=== PATIENT | male | born 1975 | race Hispanic/Latino ===

== ENCOUNTER → 2019-09-11 | Outpatient (CLI) | payer OTHER | END | disposition home or self-care (01) | LOC: RAH 10:26 | PROVIDERS: ATTEND Nurse Practitioner Family | DX: Z13.6 Encounter for screening for cardiovascular disorders (principal) | CPT/HCPCS: 75571 ==

== ENCOUNTER 2020-10-14 18:04 | Inpatient (IN) | payer BC, OTHER ==
[~2020-10-14] VITALS: Ht 190.5 cm; Wt 82.5 kg
[2020-10-14] MEDS ORDERED: CEFTRIAXONE 1G VIAL ONE (18:16)
[2020-10-14 18:31] LABS: BASOPHILS % (AUTO) 0.2 % (0.0-5.0); HEMATOCRIT 48.5 % (42-54); LYMPHOCYTES % (AUTO) 7.4 % (21.0-51.0); MEAN CORPUSCULAR HEMOGLOBIN 28.2 pg (27.0-33.0); MEAN CORPUSCULAR HGB CONC 32.2 g/dL (32.0-36.0); MEAN CORPUSCULAR VOLUME 87.5 fL (79-99); MONOCYTES % (AUTO) 4.7 % (3.0-13.0); NEUTROPHILS % (AUTO) 87.2 % (40.0-77.0); PLATELET COUNT (AUTO) 316 K/uL (130-400); RED BLOOD CELL COUNT(AUTO) 5.54 MIL/uL (4.50-6.20); RED CELL DISTRIBUTION WIDTH 12.4 % (11.0-15.5); WHITE BLOOD COUNT (AUTO) 10.5 K/uL (4.8-10.8)
[2020-10-14 18:44] LABS: INR 1.02 (0.85-1.15); PROTHROMBIN TIME 10.9 SEC (9.6-11.6)
[2020-10-14 18:45] LABS: PARTIAL THROMBOPLASTIN TIME 32.6 SEC (26.3-35.5)
[2020-10-14 19:01] LABS: ALANINE AMINOTRANSFERASE 36 U/L (12-78); ALBUMIN 3.1 g/dL (3.5-5.0); ASPARTATE AMINOTRANSFERASE 52 U/L (10-37); BILIRUBIN,TOTAL 0.3 mg/dL (0.2-1.0); CARBON DIOXIDE 21 mmol/L (21-32); CHLORIDE 101 mmol/L (101-111); CREATINE KINASE, TOTAL 112 U/L (21-232); CREATININE 1.2 mg/dL (0.5-1.5); GLOMERULAR FILTR. RATE CALC 69 mL/min (>60); GLUCOSE,RANDOM 242 mg/dL (70-105); MYOGLOBIN 97 ng/mL (10-92); POTASSIUM 4.8 mmol/L (3.5-5.1); SODIUM SERUM 136 mmol/L (136-145); TOTAL PROTEIN, SERUM 7.7 g/dL (6.0-8.3); TROPONIN I < 0.04 ng/mL (0.00-0.06); UREA NITROGEN, BLOOD 26 mg/dL (7-18)
[2020-10-14] MEDS ORDERED: 0.9%NACL 1000ML 1,000 ML IV ONE (19:41)
[2020-10-14] MEDS ORDERED: DEXAMETHASONE SOD PHOSPHATE 10MG/ML 1ML VIAL ONE (20:03)
[2020-10-14 20:48] LABS: ABG BASE EXCESS -2.5 mmol/L (-2.0-3.0); ABG HCO3 20.8 mmol/L (21.0-28.0); ABG OXYGEN SATURATION 82.3 % (95.0-99.0); ABG PCO2 33 mmHg (35-48)
[2020-10-14 21:59] LABS: BILIRUBIN,URINE Negative (NEGATIVE); COLOR,URINE Yellow (YELLOW); GLUCOSE, URINE (UA) >=1000 mg/dL (NEGATIVE); KETONES,URINE 15 mg/dL (NEGATIVE); LEUKOCYTE ESTERASE ,URINE Negative (NEGATIVE); NITRATE,URINE Negative (NEGATIVE); OCCULT BLOOD,URINE Negative (NEGATIVE); PROTEIN,URINE Negative (NEGATIVE); UROBILINOGEN,URINE 0.2 mg/dL (0.2-1.0)
[2020-10-14 22:02] LABS: APPEARANCE,URINE CLEAR (CLEAR)
[2020-10-14 22:07] LABS: RBC,URINE 0-1 /HPF (0-1); WBC,URINE 0-1 /HPF (0-1)
[2020-10-14 22:08] LABS: BACTERIA,URINE Rare /HPF (None Seen); SQUAMOUS EPITHELIAL CELL,UR Rare /HPF (0-2)
[2020-10-14] MEDS ORDERED: PHARMACY COMMUNICATION MISC SCH (22:45)
[2020-10-14 23:17] LABS: HEMOGLOBIN A1C 9.5 % (4.0-6.0)
[2020-10-15] VITALS (9 sets, daily range): BP systolic 103–179; BP diastolic 53–96
[2020-10-15] MEDS ORDERED: LOSA25TA2 PO (02:08)
[2020-10-15] MEDS ORDERED: METF1000 PO (02:09)
[2020-10-15] MEDS ORDERED: ASPI-1197 PO (02:10)
[2020-10-15] MEDS ORDERED: OMEP40CA21 PO (02:11)
[2020-10-15] MEDS ORDERED: DEXA6TAB PO (02:12)
[2020-10-15] MEDS ORDERED: BENZ-17 PO (02:13)
[2020-10-15 04:01] LABS: BASOPHILS % (AUTO) 0.1 % (0.0-5.0); HEMATOCRIT 43.4 % (42-54); LYMPHOCYTES % (AUTO) 8.6 % (21.0-51.0); MEAN CORPUSCULAR HEMOGLOBIN 27.7 pg (27.0-33.0); MEAN CORPUSCULAR HGB CONC 31.3 g/dL (32.0-36.0); MEAN CORPUSCULAR VOLUME 88.4 fL (79-99); MONOCYTES % (AUTO) 3.4 % (3.0-13.0); NEUTROPHILS % (AUTO) 87.5 % (40.0-77.0); PLATELET COUNT (AUTO) 322 K/uL (130-400); RED BLOOD CELL COUNT(AUTO) 4.91 MIL/uL (4.50-6.20); RED CELL DISTRIBUTION WIDTH 12.5 % (11.0-15.5); WHITE BLOOD COUNT (AUTO) 7.3 K/uL (4.8-10.8)
[2020-10-15 04:26] LABS: ALBUMIN 2.6 g/dL (3.5-5.0); BILIRUBIN,TOTAL 0.3 mg/dL (0.2-1.0); CREATININE 1.2 mg/dL (0.5-1.5); CRP QUANTITATIVE 162.7 mg/L (0.00-9.0); POTASSIUM 4.8 mmol/L (3.5-5.1); TOTAL PROTEIN, SERUM 7.5 g/dL (6.0-8.3)
[2020-10-15] MEDS ORDERED: ONDANSETRON 4MG INJ IV PRN (06:37)
[2020-10-15] MEDS ORDERED: LACTULOSE 20 GM/30 ML UDCUP PO PRN (06:38)
[2020-10-15] MEDS: LINEZOLID 600 MG/ISO-OSM 300 ML IV SCH ×2 (06:42→17:52)
[2020-10-15] MEDS: INSULIN LISPRO 100 UNIT/ML 3ML SQ SCH ×7 (07:30→20:48)
[2020-10-15] MEDS: ENOXAPARIN SODIUM 40 MG/0.4 ML SYRINGE SQ SCH ×3 (09:00→20:49)
[2020-10-15] MEDS ORDERED: ENOXAPARIN SODIUM 40 MG/0.4 ML SYRINGE SQ SCH (09:00)
[2020-10-15] MEDS: ZOSYN 3.375GM+NS 50ML 50 ML IV SCH ×3 (10:19→20:49)
[2020-10-15] MEDS: ERGOCALCIFEROL (VITAMIN D2) 50,000 UNIT CAPSULE PO SCH (10:21)
[2020-10-15] MEDS: FAMOTIDINE 20MG TAB PO SCH (10:21)
[2020-10-15] MEDS: ZINC SULFATE 220 CAPSULE PO SCH (10:21)
[2020-10-15] MEDS: ASCORBIC ACID 500 MG TAB PO SCH (10:21)
[2020-10-15] MEDS ORDERED: REMDESIVIR (EUA) 520 200 MG in 0.9% NACL 250ML 250 ML IV ONE (15:00)
[2020-10-15] MEDS ORDERED: COMPOUND IV REFRIGERATED 1 EACH IVSOLN MISC PRN (15:00)
[2020-10-15] MEDS ORDERED: 0.9% NACL 250ML 250 ML IV ONE (17:12)
[2020-10-15] MEDS: ACETAMINOPHEN 325 MG TAB PO PRN (20:46)
[2020-10-15] MEDS: INSULIN GLARGINE 100 UNITS/ML 10 ML VIAL SQ SCH (20:47)
[2020-10-15] MEDS: GUAIFENESIN-CODEINE 5 ML SYRUP PO PRN (21:10)
[2020-10-16] VITALS: BP_SYST 135; BP_SYST 139; BP_DIAS 80
[2020-10-16] MEDS: LORAZEPAM 2 MG/ML 1 ML VIAL IVP PRN (01:24)
[2020-10-16 04:00] VITALS: BP 135/80
[2020-10-16] MEDS ORDERED: 0.9% NACL 250ML 250 ML IV ONE (04:08)
[2020-10-16 04:24] LABS: ABG HCO3 21.1 mmol/L (21.0-28.0); ABG OXYGEN SATURATION 90.4 % (95.0-99.0); ABG PCO2 32 mmHg (35-48)
[2020-10-16] MEDS: ZOSYN 3.375GM+NS 50ML 50 ML IV SCH ×3 (04:54→19:49)
[2020-10-16 05:47] LABS: BASOPHILS % (AUTO) 0.2 % (0.0-5.0); HEMATOCRIT 43.1 % (42-54); LYMPHOCYTES % (AUTO) 11.1 % (21.0-51.0); MEAN CORPUSCULAR HEMOGLOBIN 28.2 pg (27.0-33.0); MEAN CORPUSCULAR VOLUME 88.1 fL (79-99); MONOCYTES % (AUTO) 2.6 % (3.0-13.0); NEUTROPHILS % (AUTO) 85.2 % (40.0-77.0); PLATELET COUNT (AUTO) 327 K/uL (130-400); RED BLOOD CELL COUNT(AUTO) 4.89 MIL/uL (4.50-6.20); RED CELL DISTRIBUTION WIDTH 12.4 % (11.0-15.5); WHITE BLOOD COUNT (AUTO) 10.3 K/uL (4.8-10.8)
[2020-10-16] MEDS: PHARMACY COMMUNICATION MISC SCH (06:00)
[2020-10-16 06:09] LABS: ALBUMIN 2.5 g/dL (3.5-5.0); BILIRUBIN,TOTAL 0.4 mg/dL (0.2-1.0); CREATININE 1.1 mg/dL (0.5-1.5); POTASSIUM 4.3 mmol/L (3.5-5.1); TOTAL PROTEIN, SERUM 7.3 g/dL (6.0-8.3)
[2020-10-16] MEDS: ACETAMINOPHEN 325 MG TAB PO PRN ×2 (06:14→20:12)
[2020-10-16 06:17] LABS: B-TYPE NATRIURETIC PEPTIDE 7 pg/mL (0-100)
[2020-10-16] MEDS: LINEZOLID 600 MG/ISO-OSM 300 ML IV SCH ×2 (06:17→18:50)
[2020-10-16 06:28] LABS: CRP QUANTITATIVE 176.5 mg/L (0.00-9.0)
[2020-10-16] MEDS: INSULIN LISPRO 100 UNIT/ML 3ML SQ SCH ×7 (07:30→20:15)
[2020-10-16 08:00] VITALS: BP 113/58
[2020-10-16] MEDS: ASCORBIC ACID 500 MG TAB PO SCH (08:33)
[2020-10-16] MEDS: ZINC SULFATE 220 CAPSULE PO SCH (08:33)
[2020-10-16] MEDS: ASPIRIN 81MG CHEW TAB PO SCH (08:33)
[2020-10-16] MEDS: DEXAMETHASONE SOD PHOSPHATE 4 MG/ML 1ML VIAL IVP SCH ×2 (08:33→19:49)
[2020-10-16] MEDS: FAMOTIDINE 20MG TAB PO SCH (08:33)
[2020-10-16] MEDS: LOSARTAN 50 MG TABLET PO SCH (08:34)
[2020-10-16] MEDS: ENOXAPARIN SODIUM 40 MG/0.4 ML SYRINGE SQ SCH ×2 (08:34→19:50)
[2020-10-16] MEDS: ERGOCALCIFEROL (VITAMIN D2) 50,000 UNIT CAPSULE PO SCH (08:42)
[2020-10-16] MEDS ORDERED: NON-FORMULARY MEDICATION 1 EACH (Omeprazole 40 MG) PO SCH (09:00)
[2020-10-16] MEDS ORDERED: FUROSEMIDE 20MG VIAL IV SCH (09:00)
[2020-10-16] MEDS: TRAMADOL HCL 50 MG TABLET PO PRN (11:56)
[2020-10-16 12:00] VITALS: BP 113/77
[2020-10-16] MEDS: REMDESIVIR (EUA) 520 100 MG in 0.9% NACL 250ML 250 ML IV SCH (15:06)
[2020-10-16 16:00] VITALS: BP 123/72
[2020-10-16] MEDS: GUAIFENESIN-CODEINE 5 ML SYRUP PO PRN (20:12)
[2020-10-16] MEDS: INSULIN GLARGINE 100 UNITS/ML 10 ML VIAL SQ SCH (20:14)
[2020-10-16 20:36] VITALS: BP 125/64
[2020-10-17 00:02] VITALS: BP 127/69
[2020-10-17 04:17] VITALS: BP 106/64
[2020-10-17] MEDS: PHARMACY COMMUNICATION MISC SCH (06:00)
[2020-10-17] MEDS: ZOSYN 3.375GM+NS 50ML 50 ML IV SCH ×3 (06:05→21:12)
[2020-10-17] MEDS: LINEZOLID 600 MG/ISO-OSM 300 ML IV SCH (06:07)
[2020-10-17 06:10] LABS: BASOPHILS % (AUTO) 0.2 % (0.0-5.0); HEMATOCRIT 42.7 % (42-54); LYMPHOCYTES % (AUTO) 10.4 % (21.0-51.0); MEAN CORPUSCULAR HEMOGLOBIN 28.6 pg (27.0-33.0); MEAN CORPUSCULAR HGB CONC 31.9 g/dL (32.0-36.0); MEAN CORPUSCULAR VOLUME 89.9 fL (79-99); MONOCYTES % (AUTO) 2.5 % (3.0-13.0); NEUTROPHILS % (AUTO) 86.4 % (40.0-77.0); PLATELET COUNT (AUTO) 331 K/uL (130-400); RED BLOOD CELL COUNT(AUTO) 4.75 MIL/uL (4.50-6.20); RED CELL DISTRIBUTION WIDTH 12.3 % (11.0-15.5); WHITE BLOOD COUNT (AUTO) 6.4 K/uL (4.8-10.8)
[2020-10-17 06:31] LABS: ALBUMIN 2.3 g/dL (3.5-5.0); BILIRUBIN,TOTAL 0.3 mg/dL (0.2-1.0); CREATININE 0.9 mg/dL (0.5-1.5); POTASSIUM 4.9 mmol/L (3.5-5.1); TOTAL PROTEIN, SERUM 7.3 g/dL (6.0-8.3)
[2020-10-17] MEDS: TRAMADOL HCL 50 MG TABLET PO PRN (06:31)
[2020-10-17 06:43] LABS: CRP QUANTITATIVE 194.3 mg/L (0.00-9.0)
[2020-10-17] MEDS: ZINC SULFATE 220 CAPSULE PO SCH (08:11)
[2020-10-17] MEDS: ENOXAPARIN SODIUM 40 MG/0.4 ML SYRINGE SQ SCH ×2 (08:11→21:02)
[2020-10-17] MEDS: ASPIRIN 81MG CHEW TAB PO SCH (08:11)
[2020-10-17] MEDS: ASCORBIC ACID 500 MG TAB PO SCH (08:12)
[2020-10-17] MEDS: DEXAMETHASONE SOD PHOSPHATE 4 MG/ML 1ML VIAL IVP SCH ×2 (08:12→21:12)
[2020-10-17] MEDS: LOSARTAN 50 MG TABLET PO SCH (08:12)
[2020-10-17] MEDS: FAMOTIDINE 20MG TAB PO SCH (08:12)
[2020-10-17] MEDS: INSULIN LISPRO 100 UNIT/ML 3ML SQ SCH ×7 (08:15→20:58)
[2020-10-17] MEDS: ERGOCALCIFEROL (VITAMIN D2) 50,000 UNIT CAPSULE PO SCH (09:00)
[2020-10-17] MEDS: LORAZEPAM 2 MG/ML 1 ML VIAL IVP PRN (11:05)
[2020-10-17 12:00] VITALS: BP 123/74
[2020-10-17] MEDS: REMDESIVIR (EUA) 520 100 MG in 0.9% NACL 250ML 250 ML IV SCH (14:58)
[2020-10-17 16:00] VITALS: BP 121/73
[2020-10-17] MEDS: FUROSEMIDE 20MG VIAL IV SCH (17:20)
[2020-10-17 20:00] VITALS: BP 114/75
[2020-10-17] MEDS: INSULIN GLARGINE 100 UNITS/ML 10 ML VIAL SQ SCH (20:57)
[2020-10-17] MEDS: GUAIFENESIN-CODEINE 5 ML SYRUP PO PRN (21:01)
[2020-10-17] MEDS: ACETAMINOPHEN 325 MG TAB PO PRN (21:04)
[2020-10-17 23:37] VITALS: BP 122/64
[2020-10-18 03:17] VITALS: BP 115/69
[2020-10-18 05:53] LABS: BASOPHILS % (AUTO) 0.1 % (0.0-5.0); HEMATOCRIT 43.6 % (42-54); LYMPHOCYTES % (AUTO) 6.8 % (21.0-51.0); MEAN CORPUSCULAR HEMOGLOBIN 27.5 pg (27.0-33.0); MEAN CORPUSCULAR HGB CONC 31.2 g/dL (32.0-36.0); MEAN CORPUSCULAR VOLUME 88.3 fL (79-99); MONOCYTES % (AUTO) 2.5 % (3.0-13.0); NEUTROPHILS % (AUTO) 90.2 % (40.0-77.0); PLATELET COUNT (AUTO) 403 K/uL (130-400); RED BLOOD CELL COUNT(AUTO) 4.94 MIL/uL (4.50-6.20); RED CELL DISTRIBUTION WIDTH 12.2 % (11.0-15.5); WHITE BLOOD COUNT (AUTO) 8.9 K/uL (4.8-10.8)
[2020-10-18] MEDS: ZOSYN 3.375GM+NS 50ML 50 ML IV SCH ×3 (06:07→21:22)
[2020-10-18] MEDS: FUROSEMIDE 20MG VIAL IV SCH ×2 (06:07→17:26)
[2020-10-18] MEDS: TRAMADOL HCL 50 MG TABLET PO PRN ×2 (06:17→21:36)
[2020-10-18 06:36] LABS: ALBUMIN 2.5 g/dL (3.5-5.0); BILIRUBIN,TOTAL 0.4 mg/dL (0.2-1.0); CREATININE 0.9 mg/dL (0.5-1.5); POTASSIUM 4.7 mmol/L (3.5-5.1); TOTAL PROTEIN, SERUM 6.6 g/dL (6.0-8.3)
[2020-10-18] MEDS: INSULIN LISPRO 100 UNIT/ML 3ML SQ SCH ×7 (07:45→22:10)
[2020-10-18 08:00] VITALS: BP 120/52
[2020-10-18] MEDS: FAMOTIDINE 20MG TAB PO SCH (08:01)
[2020-10-18] MEDS: DEXAMETHASONE SOD PHOSPHATE 4 MG/ML 1ML VIAL IVP SCH ×2 (08:02→21:24)
[2020-10-18] MEDS: ZINC SULFATE 220 CAPSULE PO SCH (08:02)
[2020-10-18] MEDS: ASPIRIN 81MG CHEW TAB PO SCH (08:02)
[2020-10-18] MEDS: ASCORBIC ACID 500 MG TAB PO SCH (08:02)
[2020-10-18] MEDS: ENOXAPARIN SODIUM 40 MG/0.4 ML SYRINGE SQ SCH (09:00)
[2020-10-18] MEDS: ENOXAPARIN SODIUM 60 MG/0.6 ML SQ SCH ×2 (09:27→21:22)
[2020-10-18] MEDS: ERGOCALCIFEROL (VITAMIN D2) 50,000 UNIT CAPSULE PO SCH (09:28)
[2020-10-18 12:00] VITALS: BP 123/79
[2020-10-18] MEDS: BENZOCAINE/MENTH/CETYLPYRD CL 1 EACH LOZENGE MM PRN (12:19)
[2020-10-18] MEDS: REMDESIVIR (EUA) 520 100 MG in 0.9% NACL 250ML 250 ML IV SCH (14:08)
[2020-10-18] MEDS ORDERED: FLUCONAZOLE 100 MG TAB PO ONE (15:00)
[2020-10-18] MEDS: CLOTRIMAZOLE 10 MG TROCHE MM SCH ×2 (15:08→21:23)
[2020-10-18 16:00] VITALS: BP 119/71
[2020-10-18] MEDS: GUAIFENESIN-CODEINE 5 ML SYRUP PO PRN (17:26)
[2020-10-18 20:00] VITALS: BP 140/80
[2020-10-18] MEDS: LORAZEPAM 2 MG/ML 1 ML VIAL IVP PRN (21:23)
[2020-10-18] MEDS: INSULIN GLARGINE 100 UNITS/ML 10 ML VIAL SQ SCH (22:11)
[2020-10-19 00:26] VITALS: BP 128/72
[2020-10-19 03:58] VITALS: BP 114/66
[2020-10-19] MEDS: ZOSYN 3.375GM+NS 50ML 50 ML IV SCH ×3 (04:47→21:32)
[2020-10-19] MEDS: FUROSEMIDE 20MG VIAL IV SCH (04:54)
[2020-10-19] MEDS: CLOTRIMAZOLE 10 MG TROCHE MM SCH ×4 (04:55→21:31)
[2020-10-19 05:30] LABS: HEMATOCRIT 42.6 % (42-54); LYMPHOCYTES % (AUTO) 3.9 % (21.0-51.0); MEAN CORPUSCULAR HEMOGLOBIN 28.3 pg (27.0-33.0); MEAN CORPUSCULAR HGB CONC 32.2 g/dL (32.0-36.0); MONOCYTES % (AUTO) 2.1 % (3.0-13.0); NEUTROPHILS % (AUTO) 93.7 % (40.0-77.0); PLATELET COUNT (AUTO) 485 K/uL (130-400); RED BLOOD CELL COUNT(AUTO) 4.84 MIL/uL (4.50-6.20); RED CELL DISTRIBUTION WIDTH 12.1 % (11.0-15.5); WHITE BLOOD COUNT (AUTO) 9.2 K/uL (4.8-10.8)
[2020-10-19 05:46] LABS: ALBUMIN 2.4 g/dL (3.5-5.0); BILIRUBIN,TOTAL 0.6 mg/dL (0.2-1.0); CREATININE 1.1 mg/dL (0.5-1.5); CRP QUANTITATIVE 55.8 mg/L (0.00-9.0); POTASSIUM 4.7 mmol/L (3.5-5.1); TOTAL PROTEIN, SERUM 7.3 g/dL (6.0-8.3)
[2020-10-19] MEDS: INSULIN LISPRO 100 UNIT/ML 3ML SQ SCH ×7 (06:29→22:30)
[2020-10-19 07:10] VITALS: BP 132/78
[2020-10-19] MEDS: ERGOCALCIFEROL (VITAMIN D2) 50,000 UNIT CAPSULE PO SCH (08:05)
[2020-10-19] MEDS: ASCORBIC ACID 500 MG TAB PO SCH (08:05)
[2020-10-19] MEDS: ZINC SULFATE 220 CAPSULE PO SCH (08:05)
[2020-10-19] MEDS: ASPIRIN 81MG CHEW TAB PO SCH (08:06)
[2020-10-19] MEDS: DEXAMETHASONE SOD PHOSPHATE 4 MG/ML 1ML VIAL IVP SCH ×2 (08:06→21:31)
[2020-10-19] MEDS: FAMOTIDINE 20MG TAB PO SCH (08:06)
[2020-10-19] MEDS: ENOXAPARIN SODIUM 60 MG/0.6 ML SQ SCH ×2 (08:07→21:33)
[2020-10-19] MEDS ORDERED: FLUTICASONE PROPIONATE 50MCG/SPRAY 16 GM BOTTLE EN SCH (10:15)
[2020-10-19 10:28] VITALS: BP 113/75
[2020-10-19 15:09] VITALS: BP 120/72
[2020-10-19] MEDS: REMDESIVIR (EUA) 520 100 MG in 0.9% NACL 250ML 250 ML IV SCH (15:58)
[2020-10-19] MEDS: BENZOCAINE/MENTH/CETYLPYRD CL 1 EACH LOZENGE MM PRN (16:06)
[2020-10-19 20:41] VITALS: BP 133/87
[2020-10-19] MEDS: LORAZEPAM 2 MG/ML 1 ML VIAL IVP PRN (21:31)
[2020-10-19] MEDS: TRAMADOL HCL 50 MG TABLET PO PRN (21:31)
[2020-10-19] MEDS: INSULIN GLARGINE 100 UNITS/ML 10 ML VIAL SQ SCH (22:30)
[2020-10-19] MEDS: GUAIFENESIN-CODEINE 5 ML SYRUP PO PRN (22:33)
[2020-10-20 00:28] VITALS: BP 131/64
[2020-10-20] MEDS: CLOTRIMAZOLE 10 MG TROCHE MM SCH ×4 (02:00→21:19)
[2020-10-20 03:54] VITALS: BP 113/69
[2020-10-20] MEDS: ZOSYN 3.375GM+NS 50ML 50 ML IV SCH ×3 (04:40→21:18)
[2020-10-20 05:51] LABS: BASOPHILS % (AUTO) 0.1 % (0.0-5.0); HEMATOCRIT 40.4 % (42-54); MEAN CORPUSCULAR HEMOGLOBIN 27.9 pg (27.0-33.0); MEAN CORPUSCULAR HGB CONC 31.9 g/dL (32.0-36.0); MEAN CORPUSCULAR VOLUME 87.3 fL (79-99); MONOCYTES % (AUTO) 2.6 % (3.0-13.0); NEUTROPHILS % (AUTO) 93.9 % (40.0-77.0); PLATELET COUNT (AUTO) 465 K/uL (130-400); RED BLOOD CELL COUNT(AUTO) 4.63 MIL/uL (4.50-6.20); WHITE BLOOD COUNT (AUTO) 9.4 K/uL (4.8-10.8)
[2020-10-20 06:17] LABS: ALBUMIN 2.2 g/dL (3.5-5.0); BILIRUBIN,TOTAL 0.5 mg/dL (0.2-1.0); CREATININE 0.9 mg/dL (0.5-1.5); CRP QUANTITATIVE 50.7 mg/L (0.00-9.0); POTASSIUM 4.7 mmol/L (3.5-5.1); TOTAL PROTEIN, SERUM 6.8 g/dL (6.0-8.3)
[2020-10-20] MEDS: INSULIN LISPRO 100 UNIT/ML 3ML SQ SCH ×7 (06:37→22:38)
[2020-10-20 08:00] VITALS: BP 135/85
[2020-10-20] MEDS: DEXAMETHASONE SOD PHOSPHATE 4 MG/ML 1ML VIAL IVP SCH ×2 (08:11→21:19)
[2020-10-20] MEDS: ZINC SULFATE 220 CAPSULE PO SCH (08:12)
[2020-10-20] MEDS: ASCORBIC ACID 500 MG TAB PO SCH (08:12)
[2020-10-20] MEDS: ASPIRIN 81MG CHEW TAB PO SCH (08:12)
[2020-10-20] MEDS: FAMOTIDINE 20MG TAB PO SCH (08:12)
[2020-10-20] MEDS: ENOXAPARIN SODIUM 60 MG/0.6 ML SQ SCH ×2 (08:12→21:19)
[2020-10-20] MEDS: ERGOCALCIFEROL (VITAMIN D2) 50,000 UNIT CAPSULE PO SCH (08:14)
[2020-10-20 12:00] VITALS: BP 115/64
[2020-10-20] MEDS: ACETAMINOPHEN 325 MG TAB PO PRN (15:18)
[2020-10-20] MEDS: BENZOCAINE/MENTH/CETYLPYRD CL 1 EACH LOZENGE MM PRN ×2 (15:19→22:12)
[2020-10-20 16:00] VITALS: BP 124/69
[2020-10-20] MEDS: GUAIFENESIN/DEXTROMETHORPHAN 1 EACH TAB.SR.12H PO PRN ×2 (18:01→21:19)
[2020-10-20 20:00] VITALS: BP 127/68
[2020-10-20] MEDS: LORAZEPAM 2 MG/ML 1 ML VIAL IVP PRN (21:22)
[2020-10-20] MEDS: INSULIN GLARGINE 100 UNITS/ML 10 ML VIAL SQ SCH (22:39)
[2020-10-21] VITALS (16 sets, daily range): BP systolic 95–143; BP diastolic 46–88
[2020-10-21] MEDS: CLOTRIMAZOLE 10 MG TROCHE MM SCH ×5 (02:00→21:14)
[2020-10-21 05:00] LABS: BASOPHILS % (AUTO) 0.1 % (0.0-5.0); EOSINOPHILS % (AUTO) 0.1 % (0.0-8.0); HEMATOCRIT 41.5 % (42-54); MEAN CORPUSCULAR HEMOGLOBIN 28.1 pg (27.0-33.0); MEAN CORPUSCULAR HGB CONC 32.3 g/dL (32.0-36.0); NEUTROPHILS % (AUTO) 94.2 % (40.0-77.0); PLATELET COUNT (AUTO) 411 K/uL (130-400); RED BLOOD CELL COUNT(AUTO) 4.77 MIL/uL (4.50-6.20); RED CELL DISTRIBUTION WIDTH 11.9 % (11.0-15.5); WHITE BLOOD COUNT (AUTO) 11.7 K/uL (4.8-10.8)
[2020-10-21] MEDS: ZOSYN 3.375GM+NS 50ML 50 ML IV SCH ×3 (05:09→20:16)
[2020-10-21 05:17] LABS: ALBUMIN 2.2 g/dL (3.5-5.0); BILIRUBIN,TOTAL 0.6 mg/dL (0.2-1.0); CREATININE 0.9 mg/dL (0.5-1.5); CRP QUANTITATIVE 75.8 mg/L (0.00-9.0); POTASSIUM 4.8 mmol/L (3.5-5.1); TOTAL PROTEIN, SERUM 6.7 g/dL (6.0-8.3)
[2020-10-21] MEDS: INSULIN LISPRO 100 UNIT/ML 3ML SQ SCH ×7 (06:57→20:17)
[2020-10-21] MEDS: GUAIFENESIN-CODEINE 5 ML SYRUP PO PRN (08:37)
[2020-10-21] MEDS: ASCORBIC ACID 500 MG TAB PO SCH (08:41)
[2020-10-21] MEDS: FAMOTIDINE 20MG TAB PO SCH (08:41)
[2020-10-21] MEDS: ZINC SULFATE 220 CAPSULE PO SCH (08:41)
[2020-10-21] MEDS: ASPIRIN 81MG CHEW TAB PO SCH (08:41)
[2020-10-21] MEDS: ERGOCALCIFEROL (VITAMIN D2) 50,000 UNIT CAPSULE PO SCH (08:42)
[2020-10-21] MEDS: DEXAMETHASONE SOD PHOSPHATE 4 MG/ML 1ML VIAL IVP SCH ×3 (08:45→20:16)
[2020-10-21] MEDS: FUROSEMIDE 20MG VIAL IV SCH ×2 (08:45→16:07)
[2020-10-21] MEDS: ENOXAPARIN SODIUM 60 MG/0.6 ML SQ SCH ×2 (08:46→20:20)
[2020-10-21 09:10] LABS: ABG BASE EXCESS 2.4 mmol/L (-2.0-3.0); ABG HCO3 25.1 mmol/L (21.0-28.0); ABG OXYGEN SATURATION 73.7 % (95.0-99.0); ABG PCO2 34 mmHg (35-48)
[2020-10-21] MEDS ORDERED: PHARMACY COMMUNICATION MISC SCH (15:00)
[2020-10-21] MEDS ORDERED: TROLAMINE SALICYLATE CREAM 85 GM TUBE TP PRN (15:45)
[2020-10-21] MEDS: LIDOCAINE 5% TOPICAL PATCH TP SCH (16:31)
[2020-10-21] MEDS: INSULIN GLARGINE 100 UNITS/ML 10 ML VIAL SQ SCH (20:19)
[2020-10-21] MEDS: ALPRAZOLAM 0.5 MG TABLET PO PRN (20:20)
[2020-10-22] VITALS (19 sets, daily range): BP systolic 105–153; BP diastolic 51–95
[2020-10-22] MEDS: FUROSEMIDE 20MG VIAL IV SCH ×3 (00:18→21:37)
[2020-10-22] MEDS: CLOTRIMAZOLE 10 MG TROCHE MM SCH ×4 (02:05→21:36)
[2020-10-22] MEDS: ZOSYN 3.375GM+NS 50ML 50 ML IV SCH ×3 (04:16→21:37)
[2020-10-22 04:36] LABS: BASOPHILS % (AUTO) 0.1 % (0.0-5.0); EOSINOPHILS % (AUTO) 0.1 % (0.0-8.0); LYMPHOCYTES % (AUTO) 2.7 % (21.0-51.0); MEAN CORPUSCULAR HEMOGLOBIN 27.8 pg (27.0-33.0); MEAN CORPUSCULAR HGB CONC 31.4 g/dL (32.0-36.0); MEAN CORPUSCULAR VOLUME 88.7 fL (79-99); MONOCYTES % (AUTO) 1.3 % (3.0-13.0); NEUTROPHILS % (AUTO) 95.3 % (40.0-77.0); PLATELET COUNT (AUTO) 491 K/uL (130-400); RED BLOOD CELL COUNT(AUTO) 4.96 MIL/uL (4.50-6.20); RED CELL DISTRIBUTION WIDTH 12.2 % (11.0-15.5); WHITE BLOOD COUNT (AUTO) 12.4 K/uL (4.8-10.8)
[2020-10-22 04:59] LABS: ALBUMIN 2.2 g/dL (3.5-5.0); BILIRUBIN,TOTAL 0.6 mg/dL (0.2-1.0); CREATININE 1.1 mg/dL (0.5-1.5); CRP QUANTITATIVE 173.6 mg/L (0.00-9.0); POTASSIUM 4.5 mmol/L (3.5-5.1); TOTAL PROTEIN, SERUM 7.2 g/dL (6.0-8.3)
[2020-10-22] MEDS: GUAIFENESIN-CODEINE 5 ML SYRUP PO PRN ×2 (05:17→13:20)
[2020-10-22] MEDS: ALPRAZOLAM 0.5 MG TABLET PO PRN ×2 (05:18→13:19)
[2020-10-22] MEDS: INSULIN LISPRO 100 UNIT/ML 3ML SQ SCH ×7 (08:10→21:43)
[2020-10-22] MEDS: ASPIRIN 81MG CHEW TAB PO SCH (09:04)
[2020-10-22] MEDS: BENZOCAINE/MENTH/CETYLPYRD CL 1 EACH LOZENGE MM PRN (09:06)
[2020-10-22] MEDS: ASCORBIC ACID 500 MG TAB PO SCH (09:07)
[2020-10-22] MEDS: ZINC SULFATE 220 CAPSULE PO SCH (09:07)
[2020-10-22] MEDS: DEXAMETHASONE SOD PHOSPHATE 4 MG/ML 1ML VIAL IVP SCH ×3 (09:07→21:37)
[2020-10-22] MEDS: FAMOTIDINE 20MG TAB PO SCH (09:08)
[2020-10-22] MEDS: ERGOCALCIFEROL (VITAMIN D2) 50,000 UNIT CAPSULE PO SCH (09:08)
[2020-10-22] MEDS: LIDOCAINE 5% TOPICAL PATCH TP SCH (09:08)
[2020-10-22] MEDS: ENOXAPARIN SODIUM 60 MG/0.6 ML SQ SCH ×2 (09:09→21:36)
[2020-10-22] MEDS: NACL NASAL SPRAY 120 SPRAY/BOTTLE NS SCH (10:00)
[2020-10-22] MEDS ORDERED: ARTIFICAL TEARS SOL 15 ML OD PRN (10:00)
[2020-10-22] MEDS: INSULIN GLARGINE 100 UNITS/ML 10 ML VIAL SQ SCH ×2 (11:53→21:40)
[2020-10-23] VITALS (24 sets, daily range): BP systolic 113–161; BP diastolic 62–97
[2020-10-23] MEDS: ALPRAZOLAM 0.5 MG TABLET PO PRN (00:04)
[2020-10-23] MEDS: CLOTRIMAZOLE 10 MG TROCHE MM SCH ×4 (02:31→20:27)
[2020-10-23] MEDS: ZOSYN 3.375GM+NS 50ML 50 ML IV SCH ×3 (04:29→20:28)
[2020-10-23 04:56] LABS: BASOPHILS % (AUTO) 0.1 % (0.0-5.0); EOSINOPHILS % (AUTO) 0.1 % (0.0-8.0); HEMATOCRIT 43.1 % (42-54); LYMPHOCYTES % (AUTO) 2.3 % (21.0-51.0); MEAN CORPUSCULAR HEMOGLOBIN 28.2 pg (27.0-33.0); MONOCYTES % (AUTO) 1.2 % (3.0-13.0); NEUTROPHILS % (AUTO) 95.1 % (40.0-77.0); PLATELET COUNT (AUTO) 552 K/uL (130-400); RED CELL DISTRIBUTION WIDTH 12.1 % (11.0-15.5); WHITE BLOOD COUNT (AUTO) 14.7 K/uL (4.8-10.8)
[2020-10-23 05:08] LABS: CREATININE 1.1 mg/dL (0.5-1.5); CRP QUANTITATIVE 109.5 mg/L (0.00-9.0); POTASSIUM 4.8 mmol/L (3.5-5.1)
[2020-10-23] MEDS: INSULIN LISPRO 100 UNIT/ML 3ML SQ SCH ×7 (07:46→20:29)
[2020-10-23] MEDS: FAMOTIDINE 20MG TAB PO SCH (08:57)
[2020-10-23] MEDS: ERGOCALCIFEROL (VITAMIN D2) 50,000 UNIT CAPSULE PO SCH (08:57)
[2020-10-23] MEDS: ASCORBIC ACID 500 MG TAB PO SCH (08:57)
[2020-10-23] MEDS: ZINC SULFATE 220 CAPSULE PO SCH (08:58)
[2020-10-23] MEDS: DEXAMETHASONE SOD PHOSPHATE 4 MG/ML 1ML VIAL IVP SCH ×3 (08:58→20:27)
[2020-10-23] MEDS: FUROSEMIDE 20MG VIAL IV SCH ×2 (08:58→20:28)
[2020-10-23] MEDS: BENZOCAINE/MENTH/CETYLPYRD CL 1 EACH LOZENGE MM PRN (08:58)
[2020-10-23] MEDS: ASPIRIN 81MG CHEW TAB PO SCH (08:58)
[2020-10-23] MEDS: NACL NASAL SPRAY 120 SPRAY/BOTTLE NS SCH (08:59)
[2020-10-23] MEDS: ENOXAPARIN SODIUM 60 MG/0.6 ML SQ SCH ×2 (08:59→20:32)
[2020-10-23] MEDS: LIDOCAINE 5% TOPICAL PATCH TP SCH (09:00)
[2020-10-23] MEDS: INSULIN GLARGINE 100 UNITS/ML 10 ML VIAL SQ SCH ×2 (12:00→20:31)
[2020-10-24] VITALS (24 sets, daily range): BP systolic 111–158; BP diastolic 62–98
[2020-10-24] MEDS: LINEZOLID 600 MG/ISO-OSM 300 ML IV SCH (02:15)
[2020-10-24] MEDS: CLOTRIMAZOLE 10 MG TROCHE MM SCH ×4 (02:33→20:58)
[2020-10-24 03:51] LABS: ABG BASE EXCESS 6.1 mmol/L (-2.0-3.0); ABG HCO3 30.8 mmol/L (21.0-28.0); ABG OXYGEN SATURATION 84.5 % (95.0-99.0); ABG PCO2 44 mmHg (35-48)
[2020-10-24] MEDS: ALPRAZOLAM 0.5 MG TABLET PO PRN ×2 (04:17→21:54)
[2020-10-24] MEDS: ZOSYN 3.375GM+NS 50ML 50 ML IV SCH ×3 (04:22→21:02)
[2020-10-24 05:30] LABS: BASOPHILS % (AUTO) 0.2 % (0.0-5.0); HEMATOCRIT 42.3 % (42-54); LYMPHOCYTES % (AUTO) 3.6 % (21.0-51.0); MEAN CORPUSCULAR HEMOGLOBIN 27.9 pg (27.0-33.0); MEAN CORPUSCULAR HGB CONC 32.2 g/dL (32.0-36.0); MEAN CORPUSCULAR VOLUME 86.9 fL (79-99); MONOCYTES % (AUTO) 2.4 % (3.0-13.0); NEUTROPHILS % (AUTO) 93.1 % (40.0-77.0); PLATELET COUNT (AUTO) 477 K/uL (130-400); RED BLOOD CELL COUNT(AUTO) 4.87 MIL/uL (4.50-6.20); RED CELL DISTRIBUTION WIDTH 11.9 % (11.0-15.5); WHITE BLOOD COUNT (AUTO) 12.1 K/uL (4.8-10.8)
[2020-10-24 06:00] LABS: ALBUMIN 2.2 g/dL (3.5-5.0); BILIRUBIN,TOTAL 0.4 mg/dL (0.2-1.0); CREATININE 0.9 mg/dL (0.5-1.5); CRP QUANTITATIVE 50.1 mg/L (0.00-9.0); POTASSIUM 4.9 mmol/L (3.5-5.1); TOTAL PROTEIN, SERUM 7.1 g/dL (6.0-8.3)
[2020-10-24] MEDS: INSULIN LISPRO 100 UNIT/ML 3ML SQ SCH ×7 (07:30→21:00)
[2020-10-24] MEDS: BENZOCAINE/MENTH/CETYLPYRD CL 1 EACH LOZENGE MM PRN (08:57)
[2020-10-24] MEDS: ASCORBIC ACID 500 MG TAB PO SCH (08:57)
[2020-10-24] MEDS: ERGOCALCIFEROL (VITAMIN D2) 50,000 UNIT CAPSULE PO SCH (08:57)
[2020-10-24] MEDS: FAMOTIDINE 20MG TAB PO SCH (08:58)
[2020-10-24] MEDS: ASPIRIN 81MG CHEW TAB PO SCH (08:58)
[2020-10-24] MEDS: GUAIFENESIN/DEXTROMETHORPHAN 1 EACH TAB.SR.12H PO PRN (08:58)
[2020-10-24] MEDS: GUAIFENESIN-CODEINE 5 ML SYRUP PO PRN ×2 (08:58→21:54)
[2020-10-24] MEDS: ZINC SULFATE 220 CAPSULE PO SCH (08:58)
[2020-10-24] MEDS: FUROSEMIDE 20MG VIAL IV SCH (08:59)
[2020-10-24] MEDS: DEXAMETHASONE SOD PHOSPHATE 4 MG/ML 1ML VIAL IVP SCH ×3 (08:59→20:58)
[2020-10-24] MEDS: ENOXAPARIN SODIUM 60 MG/0.6 ML SQ SCH ×2 (08:59→21:02)
[2020-10-24] MEDS: LIDOCAINE 5% TOPICAL PATCH TP SCH (09:01)
[2020-10-24] MEDS: NACL NASAL SPRAY 120 SPRAY/BOTTLE NS SCH (09:02)
[2020-10-24] MEDS: INSULIN GLARGINE 100 UNITS/ML 10 ML VIAL SQ SCH (21:01)
[2020-10-25] VITALS (28 sets, daily range): BP systolic 119–170; BP diastolic 62–94
[2020-10-25] MEDS: LINEZOLID 600 MG/ISO-OSM 300 ML IV SCH ×2 (00:17→14:10)
[2020-10-25] MEDS: FUROSEMIDE 20MG VIAL IV SCH ×3 (00:18→15:00)
[2020-10-25] MEDS: ZOSYN 3.375GM+NS 50ML 50 ML IV SCH ×3 (04:48→20:48)
[2020-10-25] MEDS: CLOTRIMAZOLE 10 MG TROCHE MM SCH ×4 (04:48→20:48)
[2020-10-25 05:43] LABS: BASOPHILS % (AUTO) 0.2 % (0.0-5.0); LYMPHOCYTES % (AUTO) 2.8 % (21.0-51.0); MEAN CORPUSCULAR HEMOGLOBIN 28.3 pg (27.0-33.0); MEAN CORPUSCULAR HGB CONC 32.5 g/dL (32.0-36.0); MONOCYTES % (AUTO) 1.7 % (3.0-13.0); NEUTROPHILS % (AUTO) 94.4 % (40.0-77.0); PLATELET COUNT (AUTO) 509 K/uL (130-400); RED CELL DISTRIBUTION WIDTH 11.9 % (11.0-15.5); WHITE BLOOD COUNT (AUTO) 11.1 K/uL (4.8-10.8)
[2020-10-25 05:53] LABS: ALBUMIN 2.2 g/dL (3.5-5.0); BILIRUBIN,TOTAL 0.4 mg/dL (0.2-1.0); CREATININE 1.1 mg/dL (0.5-1.5); CRP QUANTITATIVE 32.8 mg/L (0.00-9.0); POTASSIUM 4.2 mmol/L (3.5-5.1); TOTAL PROTEIN, SERUM 6.7 g/dL (6.0-8.3)
[2020-10-25] MEDS: INSULIN LISPRO 100 UNIT/ML 3ML SQ SCH ×7 (07:52→20:51)
[2020-10-25] MEDS: ERGOCALCIFEROL (VITAMIN D2) 50,000 UNIT CAPSULE PO SCH (09:19)
[2020-10-25] MEDS: ASPIRIN 81MG CHEW TAB PO SCH (09:19)
[2020-10-25] MEDS: DEXAMETHASONE SOD PHOSPHATE 4 MG/ML 1ML VIAL IVP SCH ×3 (09:20→20:47)
[2020-10-25] MEDS: FAMOTIDINE 20MG TAB PO SCH (09:20)
[2020-10-25] MEDS: GUAIFENESIN/DEXTROMETHORPHAN 1 EACH TAB.SR.12H PO PRN (09:20)
[2020-10-25] MEDS: ASCORBIC ACID 500 MG TAB PO SCH (09:20)
[2020-10-25] MEDS: ZINC SULFATE 220 CAPSULE PO SCH (09:20)
[2020-10-25] MEDS: GUAIFENESIN-CODEINE 5 ML SYRUP PO PRN ×2 (09:20→22:01)
[2020-10-25] MEDS: NACL NASAL SPRAY 120 SPRAY/BOTTLE NS SCH (09:22)
[2020-10-25] MEDS: LIDOCAINE 5% TOPICAL PATCH TP SCH (09:22)
[2020-10-25] MEDS: ENOXAPARIN SODIUM 60 MG/0.6 ML SQ SCH ×2 (09:22→20:48)
[2020-10-25] MEDS: ALPRAZOLAM 0.5 MG TABLET PO PRN ×2 (09:54→22:00)
[2020-10-25 16:51] LABS: MAGNESIUM 1.7 mg/dL (1.80-2.40); POTASSIUM 4.8 mmol/L (3.5-5.1)
[2020-10-25] MEDS: INSULIN GLARGINE 100 UNITS/ML 10 ML VIAL SQ SCH (20:53)
[2020-10-25] MEDS: ACETAMINOPHEN 325 MG TAB PO PRN (22:01)
[2020-10-26] VITALS (23 sets, daily range): BP systolic 97–140; BP diastolic 56–86
[2020-10-26] MEDS: FUROSEMIDE 20MG VIAL IV SCH ×3 (00:22→17:00)
[2020-10-26] MEDS: LINEZOLID 600 MG/ISO-OSM 300 ML IV SCH ×2 (00:23→13:38)
[2020-10-26] MEDS: MAGNESIUM 2GM PREMIX 50ML 50 ML IV SCH (00:23)
[2020-10-26] MEDS: CLOTRIMAZOLE 10 MG TROCHE MM SCH ×4 (02:15→19:58)
[2020-10-26 04:05] LABS: ABG BASE EXCESS 7.3 mmol/L (-2.0-3.0); ABG HCO3 32.7 mmol/L (21.0-28.0); ABG OXYGEN SATURATION 95.9 % (95.0-99.0); ABG PCO2 49 mmHg (35-48)
[2020-10-26] MEDS: ZOSYN 3.375GM+NS 50ML 50 ML IV SCH ×3 (04:55→20:02)
[2020-10-26] MEDS: ALPRAZOLAM 0.5 MG TABLET PO PRN ×2 (04:56→19:57)
[2020-10-26 05:02] LABS: BASOPHILS % (AUTO) 0.2 % (0.0-5.0); HEMATOCRIT 47.8 % (42-54); LYMPHOCYTES % (AUTO) 5.1 % (21.0-51.0); MEAN CORPUSCULAR HEMOGLOBIN 28.2 pg (27.0-33.0); MEAN CORPUSCULAR HGB CONC 33.1 g/dL (32.0-36.0); MEAN CORPUSCULAR VOLUME 85.2 fL (79-99); MONOCYTES % (AUTO) 2.6 % (3.0-13.0); PLATELET COUNT (AUTO) 479 K/uL (130-400); RED BLOOD CELL COUNT(AUTO) 5.61 MIL/uL (4.50-6.20); RED CELL DISTRIBUTION WIDTH 11.9 % (11.0-15.5); WHITE BLOOD COUNT (AUTO) 20.1 K/uL (4.8-10.8)
[2020-10-26 05:22] LABS: CREATININE 0.9 mg/dL (0.5-1.5); CRP QUANTITATIVE 21.7 mg/L (0.00-9.0); MAGNESIUM 2.2 mg/dL (1.80-2.40); POTASSIUM 3.9 mmol/L (3.5-5.1)
[2020-10-26] MEDS: INSULIN LISPRO 100 UNIT/ML 3ML SQ SCH ×7 (07:30→19:55)
[2020-10-26] MEDS: GUAIFENESIN-CODEINE 5 ML SYRUP PO PRN ×2 (09:42→19:57)
[2020-10-26] MEDS: ENOXAPARIN SODIUM 60 MG/0.6 ML SQ SCH ×2 (09:43→19:57)
[2020-10-26] MEDS: ZINC SULFATE 220 CAPSULE PO SCH (09:43)
[2020-10-26] MEDS: ERGOCALCIFEROL (VITAMIN D2) 50,000 UNIT CAPSULE PO SCH (09:43)
[2020-10-26] MEDS: FAMOTIDINE 20MG TAB PO SCH (09:43)
[2020-10-26] MEDS: ASCORBIC ACID 500 MG TAB PO SCH (09:44)
[2020-10-26] MEDS: ASPIRIN 81MG CHEW TAB PO SCH (09:44)
[2020-10-26] MEDS: ACETAMINOPHEN 325 MG TAB PO PRN (09:46)
[2020-10-26] MEDS: LIDOCAINE 5% TOPICAL PATCH TP SCH (09:47)
[2020-10-26] MEDS: NACL NASAL SPRAY 120 SPRAY/BOTTLE NS SCH (09:48)
[2020-10-26] MEDS ORDERED: DEXAMETHASONE SOD PHOSPHATE 4 MG/ML 1ML VIAL ONE (09:54)
[2020-10-26] MEDS: INSULIN GLARGINE 100 UNITS/ML 10 ML VIAL SQ SCH (19:56)
[2020-10-26] MEDS: DEXAMETHASONE SOD PHOSPHATE 4 MG/ML 1ML VIAL IVP SCH (20:02)
[2020-10-26] MEDS ORDERED: DEXAMETHASONE SOD PHOSPHATE 4 MG/ML 1ML VIAL IVP SCH (21:00)
[2020-10-27] VITALS (24 sets, daily range): BP systolic 97–137; BP diastolic 35–87
[2020-10-27] MEDS: FUROSEMIDE 20MG VIAL IV SCH ×3 (03:31→18:52)
[2020-10-27] MEDS: LINEZOLID 600 MG/ISO-OSM 300 ML IV SCH ×2 (03:31→16:11)
[2020-10-27] MEDS: CLOTRIMAZOLE 10 MG TROCHE MM SCH ×4 (04:15→22:13)
[2020-10-27] MEDS: ZOSYN 3.375GM+NS 50ML 50 ML IV SCH ×3 (04:15→21:26)
[2020-10-27] MEDS: ALPRAZOLAM 0.5 MG TABLET PO PRN ×2 (05:05→11:45)
[2020-10-27 05:59] LABS: BASOPHILS % (AUTO) 0.3 % (0.0-5.0); EOSINOPHILS % (AUTO) 0.1 % (0.0-8.0); HEMATOCRIT 51.2 % (42-54); LYMPHOCYTES % (AUTO) 3.9 % (21.0-51.0); MEAN CORPUSCULAR HEMOGLOBIN 28.3 pg (27.0-33.0); MEAN CORPUSCULAR HGB CONC 32.4 g/dL (32.0-36.0); MEAN CORPUSCULAR VOLUME 87.4 fL (79-99); MONOCYTES % (AUTO) 2.4 % (3.0-13.0); NEUTROPHILS % (AUTO) 92.5 % (40.0-77.0); PLATELET COUNT (AUTO) 424 K/uL (130-400); RED BLOOD CELL COUNT(AUTO) 5.86 MIL/uL (4.50-6.20); RED CELL DISTRIBUTION WIDTH 12.1 % (11.0-15.5); WHITE BLOOD COUNT (AUTO) 18.2 K/uL (4.8-10.8)
[2020-10-27 06:31] LABS: ALBUMIN 2.9 g/dL (3.5-5.0); BILIRUBIN,TOTAL 0.6 mg/dL (0.2-1.0); CREATININE 0.9 mg/dL (0.5-1.5); POTASSIUM 4.4 mmol/L (3.5-5.1); TOTAL PROTEIN, SERUM 8.1 g/dL (6.0-8.3)
[2020-10-27] MEDS: ENOXAPARIN SODIUM 60 MG/0.6 ML SQ SCH ×2 (10:56→21:29)
[2020-10-27] MEDS: ASPIRIN 81MG CHEW TAB PO SCH (10:57)
[2020-10-27] MEDS: FAMOTIDINE 20MG TAB PO SCH (10:57)
[2020-10-27] MEDS: ERGOCALCIFEROL (VITAMIN D2) 50,000 UNIT CAPSULE PO SCH (10:57)
[2020-10-27] MEDS: DEXAMETHASONE SOD PHOSPHATE 4 MG/ML 1ML VIAL IVP SCH ×3 (10:58→21:27)
[2020-10-27] MEDS: ZINC SULFATE 220 CAPSULE PO SCH (10:58)
[2020-10-27] MEDS: ASCORBIC ACID 500 MG TAB PO SCH (10:59)
[2020-10-27] MEDS: NACL NASAL SPRAY 120 SPRAY/BOTTLE NS SCH (11:00)
[2020-10-27] MEDS: INSULIN LISPRO 100 UNIT/ML 3ML SQ SCH ×7 (11:21→22:11)
[2020-10-27] MEDS: LIDOCAINE 5% TOPICAL PATCH TP SCH (11:54)
[2020-10-27] MEDS: BENZOCAINE/MENTH/CETYLPYRD CL 1 EACH LOZENGE MM PRN ×2 (14:38→14:56)
[2020-10-27] MEDS: GUAIFENESIN-CODEINE 5 ML SYRUP PO PRN (15:11)
[2020-10-27] MEDS: INSULIN GLARGINE 100 UNITS/ML 10 ML VIAL SQ SCH (21:33)
[2020-10-28] VITALS (23 sets, daily range): BP systolic 98–153; BP diastolic 61–110
[2020-10-28] MEDS: ALPRAZOLAM 0.5 MG TABLET PO PRN ×2 (00:35→22:19)
[2020-10-28] MEDS: GUAIFENESIN-CODEINE 5 ML SYRUP PO PRN ×2 (00:35→22:19)
[2020-10-28] MEDS: FUROSEMIDE 20MG VIAL IV SCH (03:06)
[2020-10-28] MEDS: LINEZOLID 600 MG/ISO-OSM 300 ML IV SCH ×2 (03:11→15:01)
[2020-10-28] MEDS: CLOTRIMAZOLE 10 MG TROCHE MM SCH ×4 (03:13→21:04)
[2020-10-28 04:09] LABS: ABG BASE EXCESS 6.8 mmol/L (-2.0-3.0); ABG HCO3 31.4 mmol/L (21.0-28.0); ABG OXYGEN SATURATION 96.1 % (95.0-99.0); ABG PCO2 44 mmHg (35-48)
[2020-10-28] MEDS: ZOSYN 3.375GM+NS 50ML 50 ML IV SCH ×3 (04:36→21:03)
[2020-10-28 04:46] LABS: BASOPHILS % (AUTO) 0.2 % (0.0-5.0); HEMATOCRIT 43.8 % (42-54); LYMPHOCYTES % (AUTO) 2.3 % (21.0-51.0); MEAN CORPUSCULAR HGB CONC 32.4 g/dL (32.0-36.0); MEAN CORPUSCULAR VOLUME 86.4 fL (79-99); MONOCYTES % (AUTO) 2.1 % (3.0-13.0); NEUTROPHILS % (AUTO) 94.2 % (40.0-77.0); PLATELET COUNT (AUTO) 519 K/uL (130-400); RED BLOOD CELL COUNT(AUTO) 5.07 MIL/uL (4.50-6.20); RED CELL DISTRIBUTION WIDTH 12.2 % (11.0-15.5); WHITE BLOOD COUNT (AUTO) 17.6 K/uL (4.8-10.8)
[2020-10-28 05:13] LABS: ALBUMIN 2.4 g/dL (3.5-5.0); BILIRUBIN,TOTAL 0.5 mg/dL (0.2-1.0); CREATININE 1.2 mg/dL (0.5-1.5); TOTAL PROTEIN, SERUM 6.4 g/dL (6.0-8.3)
[2020-10-28 05:26] LABS: CRP QUANTITATIVE 35.6 mg/L (0.00-9.0)
[2020-10-28] MEDS: INSULIN LISPRO 100 UNIT/ML 3ML SQ SCH ×8 (06:28→22:05)
[2020-10-28] MEDS ORDERED: ALBUMIN (HUMAN) 25% 50 ML IV SCH (09:30)
[2020-10-28] MEDS: INSULIN GLARGINE 100 UNITS/ML 10 ML VIAL SQ SCH ×2 (09:31→22:12)
[2020-10-28] MEDS: DEXAMETHASONE SOD PHOSPHATE 4 MG/ML 1ML VIAL IVP SCH ×3 (09:32→21:05)
[2020-10-28] MEDS: ASPIRIN 81MG CHEW TAB PO SCH (09:33)
[2020-10-28] MEDS: ENOXAPARIN SODIUM 60 MG/0.6 ML SQ SCH ×2 (09:34→21:04)
[2020-10-28] MEDS: ZINC SULFATE 220 CAPSULE PO SCH (09:35)
[2020-10-28] MEDS: FAMOTIDINE 20MG TAB PO SCH (09:35)
[2020-10-28] MEDS: ASCORBIC ACID 500 MG TAB PO SCH (09:35)
[2020-10-28] MEDS: ERGOCALCIFEROL (VITAMIN D2) 50,000 UNIT CAPSULE PO SCH (09:39)
[2020-10-28] MEDS: NACL NASAL SPRAY 120 SPRAY/BOTTLE NS SCH (09:43)
[2020-10-28] MEDS: LIDOCAINE 5% TOPICAL PATCH TP SCH (09:59)
[2020-10-28] MEDS ORDERED: LORAZEPAM 2 MG/ML 1 ML VIAL IVP SCH (12:00)
[2020-10-28] MEDS ORDERED: METOPROLOL TARTRATE 25 MG TAB PO SCH (12:00)
[2020-10-28] MEDS ORDERED: FUROSEMIDE 20MG VIAL IV SCH (21:00)
[2020-10-29] VITALS (21 sets, daily range): BP systolic 103–154; BP diastolic 61–100
[2020-10-29] MEDS: LINEZOLID 600 MG/ISO-OSM 300 ML IV SCH ×2 (01:53→13:23)
[2020-10-29 04:48] LABS: ABG BASE EXCESS 8.6 mmol/L (-2.0-3.0); ABG HCO3 33.8 mmol/L (21.0-28.0); ABG OXYGEN SATURATION 91.8 % (95.0-99.0); ABG PCO2 48 mmHg (35-48)
[2020-10-29] MEDS: ZOSYN 3.375GM+NS 50ML 50 ML IV SCH (05:14)
[2020-10-29] MEDS: CLOTRIMAZOLE 10 MG TROCHE MM SCH ×4 (05:14→21:12)
[2020-10-29] MEDS: INSULIN LISPRO 100 UNIT/ML 3ML SQ SCH ×7 (05:17→21:12)
[2020-10-29 06:15] LABS: BASOPHILS % (AUTO) 0.2 % (0.0-5.0); EOSINOPHILS % (AUTO) 0.4 % (0.0-8.0); HEMATOCRIT 47.4 % (42-54); LYMPHOCYTES % (AUTO) 4.1 % (21.0-51.0); MEAN CORPUSCULAR HEMOGLOBIN 28.1 pg (27.0-33.0); MEAN CORPUSCULAR HGB CONC 32.3 g/dL (32.0-36.0); MEAN CORPUSCULAR VOLUME 87.1 fL (79-99); MONOCYTES % (AUTO) 2.5 % (3.0-13.0); PLATELET COUNT (AUTO) 542 K/uL (130-400); RED BLOOD CELL COUNT(AUTO) 5.44 MIL/uL (4.50-6.20); RED CELL DISTRIBUTION WIDTH 12.2 % (11.0-15.5); WHITE BLOOD COUNT (AUTO) 19.6 K/uL (4.8-10.8)
[2020-10-29] MEDS: ALPRAZOLAM 0.5 MG TABLET PO PRN ×3 (06:16→21:09)
[2020-10-29] MEDS: ACETAMINOPHEN 325 MG TAB PO PRN (06:24)
[2020-10-29 06:30] LABS: ALBUMIN 2.8 g/dL (3.5-5.0); BILIRUBIN,TOTAL 0.7 mg/dL (0.2-1.0); CREATININE 1.1 mg/dL (0.5-1.5); POTASSIUM 4.2 mmol/L (3.5-5.1); TOTAL PROTEIN, SERUM 7.6 g/dL (6.0-8.3)
[2020-10-29] MEDS: ASPIRIN 81MG CHEW TAB PO SCH (09:00)
[2020-10-29] MEDS: ASCORBIC ACID 500 MG TAB PO SCH (09:00)
[2020-10-29] MEDS: ERGOCALCIFEROL (VITAMIN D2) 50,000 UNIT CAPSULE PO SCH (09:00)
[2020-10-29] MEDS: FAMOTIDINE 20MG TAB PO SCH (09:00)
[2020-10-29] MEDS: ZINC SULFATE 220 CAPSULE PO SCH (09:00)
[2020-10-29] MEDS: ENOXAPARIN SODIUM 60 MG/0.6 ML SQ SCH ×2 (09:01→21:09)
[2020-10-29] MEDS: LIDOCAINE 5% TOPICAL PATCH TP SCH (09:02)
[2020-10-29] MEDS: INSULIN GLARGINE 100 UNITS/ML 10 ML VIAL SQ SCH ×2 (09:03→21:16)
[2020-10-29] MEDS: DEXAMETHASONE SOD PHOSPHATE 4 MG/ML 1ML VIAL IVP SCH ×3 (09:11→21:10)
[2020-10-29] MEDS: NACL NASAL SPRAY 120 SPRAY/BOTTLE NS SCH (09:11)
[2020-10-29] MEDS: METOPROLOL TARTRATE 25 MG TAB PO SCH ×2 (10:17→21:14)
[2020-10-29] MEDS: FUROSEMIDE 20MG VIAL IV SCH (13:19)
[2020-10-29] MEDS: GUAIFENESIN-CODEINE 5 ML SYRUP PO PRN (21:22)
[2020-10-30] VITALS (15 sets, daily range): BP systolic 115–157; BP diastolic 65–96
[2020-10-30] MEDS: LINEZOLID 600 MG/ISO-OSM 300 ML IV SCH ×2 (03:05→13:39)
[2020-10-30] MEDS: ACETAMINOPHEN 325 MG TAB PO PRN ×2 (05:16→13:57)
[2020-10-30] MEDS: CLOTRIMAZOLE 10 MG TROCHE MM SCH ×3 (05:16→13:39)
[2020-10-30 05:26] LABS: BASOPHILS % (AUTO) 0.1 % (0.0-5.0); EOSINOPHILS % (AUTO) 0.2 % (0.0-8.0); HEMATOCRIT 43.5 % (42-54); LYMPHOCYTES % (AUTO) 3.2 % (21.0-51.0); MEAN CORPUSCULAR HEMOGLOBIN 27.9 pg (27.0-33.0); MEAN CORPUSCULAR VOLUME 87.3 fL (79-99); MONOCYTES % (AUTO) 2.6 % (3.0-13.0); NEUTROPHILS % (AUTO) 92.9 % (40.0-77.0); PLATELET COUNT (AUTO) 415 K/uL (130-400); RED BLOOD CELL COUNT(AUTO) 4.98 MIL/uL (4.50-6.20); RED CELL DISTRIBUTION WIDTH 12.1 % (11.0-15.5)
[2020-10-30] MEDS: INSULIN LISPRO 100 UNIT/ML 3ML SQ SCH ×8 (06:02→22:25)
[2020-10-30 07:22] LABS: CREATININE 0.9 mg/dL (0.5-1.5); CRP QUANTITATIVE 15.7 mg/L (0.00-9.0); POTASSIUM 4.4 mmol/L (3.5-5.1)
[2020-10-30] MEDS: ENOXAPARIN SODIUM 60 MG/0.6 ML SQ SCH ×2 (09:21→22:20)
[2020-10-30] MEDS: ZINC SULFATE 220 CAPSULE PO SCH (09:21)
[2020-10-30] MEDS: ASCORBIC ACID 500 MG TAB PO SCH (09:21)
[2020-10-30] MEDS: ASPIRIN 81MG CHEW TAB PO SCH (09:21)
[2020-10-30] MEDS: METOPROLOL TARTRATE 25 MG TAB PO SCH ×2 (09:21→22:21)
[2020-10-30] MEDS: FAMOTIDINE 20MG TAB PO SCH (09:21)
[2020-10-30] MEDS: FUROSEMIDE 20MG VIAL IV SCH (09:22)
[2020-10-30] MEDS: DEXAMETHASONE SOD PHOSPHATE 4 MG/ML 1ML VIAL IVP SCH ×3 (09:22→22:21)
[2020-10-30] MEDS: LIDOCAINE 5% TOPICAL PATCH TP SCH (09:23)
[2020-10-30] MEDS: NACL NASAL SPRAY 120 SPRAY/BOTTLE NS SCH (09:31)
[2020-10-30] MEDS: INSULIN GLARGINE 100 UNITS/ML 10 ML VIAL SQ SCH ×2 (09:31→22:23)
[2020-10-30] MEDS: ALPRAZOLAM 0.5 MG TABLET PO PRN ×2 (13:54→22:21)
[2020-10-30] MEDS: GUAIFENESIN-CODEINE 5 ML SYRUP PO PRN (22:21)
[2020-10-31] VITALS (22 sets, daily range): BP systolic 90–143; BP diastolic 55–85
[2020-10-31] MEDS: CLOTRIMAZOLE 10 MG TROCHE MM SCH ×4 (02:07→21:22)
[2020-10-31] MEDS: LINEZOLID 600 MG/ISO-OSM 300 ML IV SCH ×2 (02:07→13:52)
[2020-10-31 05:18] LABS: BASOPHILS % (AUTO) 0.2 % (0.0-5.0); EOSINOPHILS % (AUTO) 0.2 % (0.0-8.0); HEMATOCRIT 40.7 % (42-54); LYMPHOCYTES % (AUTO) 3.1 % (21.0-51.0); MEAN CORPUSCULAR HEMOGLOBIN 28.2 pg (27.0-33.0); MEAN CORPUSCULAR HGB CONC 32.9 g/dL (32.0-36.0); MEAN CORPUSCULAR VOLUME 85.5 fL (79-99); MONOCYTES % (AUTO) 2.6 % (3.0-13.0); NEUTROPHILS % (AUTO) 92.9 % (40.0-77.0); PLATELET COUNT (AUTO) 438 K/uL (130-400); RED BLOOD CELL COUNT(AUTO) 4.76 MIL/uL (4.50-6.20); WHITE BLOOD COUNT (AUTO) 18.7 K/uL (4.8-10.8)
[2020-10-31 05:36] LABS: CREATININE 0.9 mg/dL (0.5-1.5); CRP QUANTITATIVE 14.2 mg/L (0.00-9.0); POTASSIUM 4.5 mmol/L (3.5-5.1)
[2020-10-31] MEDS: INSULIN LISPRO 100 UNIT/ML 3ML SQ SCH ×7 (06:31→21:18)
[2020-10-31] MEDS: FAMOTIDINE 20MG TAB PO SCH (08:43)
[2020-10-31] MEDS: ZINC SULFATE 220 CAPSULE PO SCH (08:43)
[2020-10-31] MEDS: LIDOCAINE 5% TOPICAL PATCH TP SCH (08:43)
[2020-10-31] MEDS: ASPIRIN 81MG CHEW TAB PO SCH (08:43)
[2020-10-31] MEDS: ASCORBIC ACID 500 MG TAB PO SCH (08:44)
[2020-10-31] MEDS: FUROSEMIDE 20MG VIAL IV SCH (08:44)
[2020-10-31] MEDS: ENOXAPARIN SODIUM 60 MG/0.6 ML SQ SCH ×2 (08:45→21:16)
[2020-10-31] MEDS: INSULIN GLARGINE 100 UNITS/ML 10 ML VIAL SQ SCH ×2 (08:48→21:21)
[2020-10-31] MEDS: METOPROLOL TARTRATE 25 MG TAB PO SCH ×2 (08:57→21:23)
[2020-10-31] MEDS: DEXAMETHASONE SOD PHOSPHATE 4 MG/ML 1ML VIAL IVP SCH ×3 (08:57→21:23)
[2020-10-31] MEDS: NACL NASAL SPRAY 120 SPRAY/BOTTLE NS SCH (08:58)
[2020-10-31] MEDS: ALPRAZOLAM 0.5 MG TABLET PO PRN ×2 (09:18→21:22)
[2020-10-31] MEDS: GUAIFENESIN-CODEINE 5 ML SYRUP PO PRN (09:18)
[2020-10-31] MEDS: ZOSYN 3.375GM+NS 50ML 50 ML IV SCH ×3 (12:04→21:23)
[2020-11-01] VITALS (24 sets, daily range): BP systolic 105–155; BP diastolic 58–97
[2020-11-01] MEDS: LINEZOLID 600 MG/ISO-OSM 300 ML IV SCH ×2 (00:48→15:12)
[2020-11-01 04:05] LABS: ABG BASE EXCESS 5.7 mmol/L (-2.0-3.0); ABG OXYGEN SATURATION 96.1 % (95.0-99.0); ABG PCO2 43 mmHg (35-48)
[2020-11-01] MEDS: ZOSYN 3.375GM+NS 50ML 50 ML IV SCH ×3 (05:38→22:18)
[2020-11-01] MEDS: CLOTRIMAZOLE 10 MG TROCHE MM SCH ×4 (05:38→22:18)
[2020-11-01] MEDS: INSULIN LISPRO 100 UNIT/ML 3ML SQ SCH ×7 (05:39→21:00)
[2020-11-01 06:36] LABS: BASOPHILS % (AUTO) 0.1 % (0.0-5.0); EOSINOPHILS % (AUTO) 0.8 % (0.0-8.0); HEMATOCRIT 38.2 % (42-54); LYMPHOCYTES % (AUTO) 5.5 % (21.0-51.0); MEAN CORPUSCULAR HEMOGLOBIN 28.2 pg (27.0-33.0); MEAN CORPUSCULAR HGB CONC 32.7 g/dL (32.0-36.0); MEAN CORPUSCULAR VOLUME 86.2 fL (79-99); MONOCYTES % (AUTO) 3.8 % (3.0-13.0); NEUTROPHILS % (AUTO) 88.9 % (40.0-77.0); PLATELET COUNT (AUTO) 387 K/uL (130-400); RED BLOOD CELL COUNT(AUTO) 4.43 MIL/uL (4.50-6.20); RED CELL DISTRIBUTION WIDTH 12.5 % (11.0-15.5); WHITE BLOOD COUNT (AUTO) 14.3 K/uL (4.8-10.8)
[2020-11-01 07:00] LABS: ALBUMIN 2.3 g/dL (3.5-5.0); BILIRUBIN,TOTAL 0.5 mg/dL (0.2-1.0); CREATININE 0.9 mg/dL (0.5-1.5); CRP QUANTITATIVE 15.4 mg/L (0.00-9.0); MAGNESIUM 2.1 mg/dL (1.80-2.40); POTASSIUM 4.1 mmol/L (3.5-5.1); TOTAL PROTEIN, SERUM 5.7 g/dL (6.0-8.3)
[2020-11-01] MEDS: ALPRAZOLAM 0.5 MG TABLET PO PRN ×3 (07:08→19:55)
[2020-11-01] MEDS: DEXAMETHASONE SOD PHOSPHATE 4 MG/ML 1ML VIAL IVP SCH ×2 (08:15→22:18)
[2020-11-01] MEDS: FUROSEMIDE 20MG VIAL IV SCH (08:15)
[2020-11-01] MEDS: ACETAMINOPHEN 325 MG TAB PO PRN (08:24)
[2020-11-01] MEDS: ENOXAPARIN SODIUM 60 MG/0.6 ML SQ SCH ×2 (08:28→22:19)
[2020-11-01] MEDS: ASPIRIN 81MG CHEW TAB PO SCH (08:29)
[2020-11-01] MEDS: ZINC SULFATE 220 CAPSULE PO SCH (08:29)
[2020-11-01] MEDS: ASCORBIC ACID 500 MG TAB PO SCH (08:29)
[2020-11-01] MEDS: FAMOTIDINE 20MG TAB PO SCH (08:29)
[2020-11-01] MEDS: METOPROLOL TARTRATE 25 MG TAB PO SCH ×2 (08:30→22:18)
[2020-11-01] MEDS: LIDOCAINE 5% TOPICAL PATCH TP SCH (08:30)
[2020-11-01] MEDS: NACL NASAL SPRAY 120 SPRAY/BOTTLE NS SCH (08:30)
[2020-11-01] MEDS: INSULIN GLARGINE 100 UNITS/ML 10 ML VIAL SQ SCH ×2 (08:31→21:00)
[2020-11-01] MEDS: BENZOCAINE/MENTH/CETYLPYRD CL 1 EACH LOZENGE MM PRN (17:47)
[2020-11-01 20:34] LABS: ABG BASE EXCESS 5.4 mmol/L (-2.0-3.0); ABG HCO3 28.2 mmol/L (21.0-28.0); ABG OXYGEN SATURATION 93.6 % (95.0-99.0); ABG PCO2 35 mmHg (35-48)
[2020-11-02] VITALS (23 sets, daily range): BP systolic 103–177; BP diastolic 52–90
[2020-11-02] MEDS: LINEZOLID 600 MG/ISO-OSM 300 ML IV SCH ×2 (02:28→14:23)
[2020-11-02] MEDS: CLOTRIMAZOLE 10 MG TROCHE MM SCH ×4 (04:53→20:31)
[2020-11-02] MEDS: ZOSYN 3.375GM+NS 50ML 50 ML IV SCH ×3 (04:53→20:25)
[2020-11-02 06:08] LABS: BASOPHILS % (AUTO) 0.2 % (0.0-5.0); EOSINOPHILS % (AUTO) 0.7 % (0.0-8.0); HEMATOCRIT 37.1 % (42-54); LYMPHOCYTES % (AUTO) 4.7 % (21.0-51.0); MEAN CORPUSCULAR HEMOGLOBIN 28.1 pg (27.0-33.0); MEAN CORPUSCULAR HGB CONC 32.3 g/dL (32.0-36.0); MEAN CORPUSCULAR VOLUME 86.9 fL (79-99); MONOCYTES % (AUTO) 2.4 % (3.0-13.0); NEUTROPHILS % (AUTO) 91.1 % (40.0-77.0); PLATELET COUNT (AUTO) 344 K/uL (130-400); RED BLOOD CELL COUNT(AUTO) 4.27 MIL/uL (4.50-6.20); RED CELL DISTRIBUTION WIDTH 12.8 % (11.0-15.5); WHITE BLOOD COUNT (AUTO) 11.5 K/uL (4.8-10.8)
[2020-11-02] MEDS: INSULIN LISPRO 100 UNIT/ML 3ML SQ SCH ×7 (06:19→20:57)
[2020-11-02 06:24] LABS: ALBUMIN 2.3 g/dL (3.5-5.0); BILIRUBIN,TOTAL 0.6 mg/dL (0.2-1.0); CRP QUANTITATIVE 19.1 mg/L (0.00-9.0); POTASSIUM 4.3 mmol/L (3.5-5.1); TOTAL PROTEIN, SERUM 5.6 g/dL (6.0-8.3)
[2020-11-02] MEDS: INSULIN GLARGINE 100 UNITS/ML 10 ML VIAL SQ SCH ×2 (09:24→20:56)
[2020-11-02] MEDS: ASPIRIN 81MG CHEW TAB PO SCH (09:25)
[2020-11-02] MEDS: ASCORBIC ACID 500 MG TAB PO SCH (09:25)
[2020-11-02] MEDS: ZINC SULFATE 220 CAPSULE PO SCH (09:25)
[2020-11-02] MEDS: FAMOTIDINE 20MG TAB PO SCH (09:25)
[2020-11-02] MEDS: ALPRAZOLAM 0.5 MG TABLET PO PRN ×2 (09:25→21:03)
[2020-11-02] MEDS: LOSARTAN 50 MG TABLET PO SCH (09:26)
[2020-11-02] MEDS: BENZOCAINE/MENTH/CETYLPYRD CL 1 EACH LOZENGE MM PRN (09:26)
[2020-11-02] MEDS: DEXAMETHASONE SOD PHOSPHATE 4 MG/ML 1ML VIAL IVP SCH ×2 (09:27→20:25)
[2020-11-02] MEDS: FUROSEMIDE 20MG VIAL IV SCH (09:29)
[2020-11-02] MEDS: ENOXAPARIN SODIUM 60 MG/0.6 ML SQ SCH (09:29)
[2020-11-02] MEDS: LIDOCAINE 5% TOPICAL PATCH TP SCH (09:29)
[2020-11-02] MEDS: METOPROLOL TARTRATE 25 MG TAB PO SCH ×2 (09:34→20:22)
[2020-11-02] MEDS: NACL NASAL SPRAY 120 SPRAY/BOTTLE NS SCH (09:40)
[2020-11-02] MEDS: ENOXAPARIN SODIUM 40 MG/0.4 ML SYRINGE SQ SCH (20:24)
[2020-11-03] VITALS (22 sets, daily range): BP systolic 93–137; BP diastolic 58–80
[2020-11-03] MEDS: LINEZOLID 600 MG/ISO-OSM 300 ML IV SCH ×2 (01:08→14:13)
[2020-11-03] MEDS: GUAIFENESIN-CODEINE 5 ML SYRUP PO PRN (01:09)
[2020-11-03] MEDS: CLOTRIMAZOLE 10 MG TROCHE MM SCH ×2 (01:09→09:20)
[2020-11-03] MEDS: ZOSYN 3.375GM+NS 50ML 50 ML IV SCH ×3 (04:30→20:11)
[2020-11-03 06:02] LABS: BASOPHILS % (AUTO) 0.1 % (0.0-5.0); EOSINOPHILS % (AUTO) 1.8 % (0.0-8.0); HEMATOCRIT 42.7 % (42-54); LYMPHOCYTES % (AUTO) 7.2 % (21.0-51.0); MEAN CORPUSCULAR HEMOGLOBIN 27.7 pg (27.0-33.0); MEAN CORPUSCULAR HGB CONC 31.6 g/dL (32.0-36.0); MEAN CORPUSCULAR VOLUME 87.7 fL (79-99); MONOCYTES % (AUTO) 3.7 % (3.0-13.0); NEUTROPHILS % (AUTO) 86.4 % (40.0-77.0); PLATELET COUNT (AUTO) 354 K/uL (130-400); RED BLOOD CELL COUNT(AUTO) 4.87 MIL/uL (4.50-6.20); RED CELL DISTRIBUTION WIDTH 12.7 % (11.0-15.5); WHITE BLOOD COUNT (AUTO) 14.7 K/uL (4.8-10.8)
[2020-11-03 06:23] LABS: ALBUMIN 2.5 g/dL (3.5-5.0); BILIRUBIN,TOTAL 0.6 mg/dL (0.2-1.0); CREATININE 0.9 mg/dL (0.5-1.5); CRP QUANTITATIVE 18.6 mg/L (0.00-9.0); POTASSIUM 4.3 mmol/L (3.5-5.1); TOTAL PROTEIN, SERUM 6.3 g/dL (6.0-8.3)
[2020-11-03 07:15] LABS: ERYTHROCYTE SEDIMENTATION RATE 26 MM/HR (0-15)
[2020-11-03] MEDS: INSULIN LISPRO 100 UNIT/ML 3ML SQ SCH ×7 (07:30→20:13)
[2020-11-03] MEDS: LIDOCAINE 5% TOPICAL PATCH TP SCH (08:22)
[2020-11-03] MEDS: ALPRAZOLAM 0.5 MG TABLET PO PRN ×2 (09:20→17:13)
[2020-11-03] MEDS: FAMOTIDINE 20MG TAB PO SCH (09:20)
[2020-11-03] MEDS: ASPIRIN 81MG CHEW TAB PO SCH (09:20)
[2020-11-03] MEDS: DEXAMETHASONE SOD PHOSPHATE 4 MG/ML 1ML VIAL IVP SCH ×2 (09:20→20:12)
[2020-11-03] MEDS: ZINC SULFATE 220 CAPSULE PO SCH (09:20)
[2020-11-03] MEDS: ASCORBIC ACID 500 MG TAB PO SCH (09:20)
[2020-11-03] MEDS: METOPROLOL TARTRATE 25 MG TAB PO SCH ×2 (09:22→20:10)
[2020-11-03] MEDS: LOSARTAN 50 MG TABLET PO SCH (09:22)
[2020-11-03] MEDS: ENOXAPARIN SODIUM 40 MG/0.4 ML SYRINGE SQ SCH ×2 (09:23→20:11)
[2020-11-03] MEDS: INSULIN GLARGINE 100 UNITS/ML 10 ML VIAL SQ SCH (09:25)
[2020-11-03] MEDS: FUROSEMIDE 20MG VIAL IV SCH (09:27)
[2020-11-03] MEDS: NACL NASAL SPRAY 120 SPRAY/BOTTLE NS SCH (09:27)
[2020-11-03] MEDS ORDERED: QUETIAPINE FUMARATE 25 MG TAB PO SCH (12:45)
[2020-11-03] MEDS: QUETIAPINE FUMARATE 25 MG TAB PO SCH (20:12)
[2020-11-03] MEDS: DEXMEDETOMIDINE HCL 400 MCG in 0.9%NACL 100ML 100 ML IV PRN (20:42)
[2020-11-04] VITALS (54 sets, daily range): BP systolic 62–154; BP diastolic 41–88
[2020-11-04] MEDS: LINEZOLID 600 MG/ISO-OSM 300 ML IV SCH ×2 (01:26→14:20)
[2020-11-04] MEDS: ZOSYN 3.375GM+NS 50ML 50 ML IV SCH (04:21)
[2020-11-04] MEDS: ACETAMINOPHEN 325 MG TAB PO PRN ×2 (04:47→05:55)
[2020-11-04] MEDS: LIDOCAINE 5% TOPICAL PATCH TP SCH (04:48)
[2020-11-04] MEDS: ALPRAZOLAM 0.5 MG TABLET PO PRN (05:16)
[2020-11-04 05:34] LABS: BASOPHILS % (AUTO) 0.1 % (0.0-5.0); EOSINOPHILS % (AUTO) 1.3 % (0.0-8.0); HEMATOCRIT 38.7 % (42-54); LYMPHOCYTES % (AUTO) 8.3 % (21.0-51.0); MEAN CORPUSCULAR HEMOGLOBIN 28.6 pg (27.0-33.0); MEAN CORPUSCULAR HGB CONC 33.1 g/dL (32.0-36.0); MEAN CORPUSCULAR VOLUME 86.4 fL (79-99); MONOCYTES % (AUTO) 3.5 % (3.0-13.0); PLATELET COUNT (AUTO) 289 K/uL (130-400); RED BLOOD CELL COUNT(AUTO) 4.48 MIL/uL (4.50-6.20); RED CELL DISTRIBUTION WIDTH 12.9 % (11.0-15.5); WHITE BLOOD COUNT (AUTO) 12.6 K/uL (4.8-10.8)
[2020-11-04 05:59] LABS: ALBUMIN 2.3 g/dL (3.5-5.0); BILIRUBIN,TOTAL 0.7 mg/dL (0.2-1.0); CREATININE 0.9 mg/dL (0.5-1.5); POTASSIUM 4.2 mmol/L (3.5-5.1); TOTAL PROTEIN, SERUM 5.9 g/dL (6.0-8.3)
[2020-11-04] MEDS: INSULIN LISPRO 100 UNIT/ML 3ML SQ SCH ×7 (07:30→20:41)
[2020-11-04] MEDS: INSULIN GLARGINE 100 UNITS/ML 10 ML VIAL SQ SCH (08:00)
[2020-11-04] MEDS: ASCORBIC ACID 500 MG TAB PO SCH (09:00)
[2020-11-04] MEDS: QUETIAPINE FUMARATE 25 MG TAB PO SCH ×2 (09:00→20:28)
[2020-11-04] MEDS: FUROSEMIDE 20MG VIAL IV SCH (09:00)
[2020-11-04] MEDS: FAMOTIDINE 20MG TAB PO SCH (09:00)
[2020-11-04] MEDS: ASPIRIN 81MG CHEW TAB PO SCH (09:00)
[2020-11-04] MEDS: ZINC SULFATE 220 CAPSULE PO SCH (09:00)
[2020-11-04 09:04] LABS: ABG BASE EXCESS -0.6 mmol/L (-2.0-3.0); ABG HCO3 24.7 mmol/L (21.0-28.0); ABG OXYGEN SATURATION 63.1 % (95.0-99.0); ABG PCO2 43 mmHg (35-48)
[2020-11-04] MEDS ORDERED: PROPOFOL 1000 MG/100 ML 100 ML IV ONE (09:15)
[2020-11-04 09:25] LABS: BASOPHILS % (AUTO) 0.1 % (0.0-5.0); EOSINOPHILS % (AUTO) 4.1 % (0.0-8.0); HEMATOCRIT 43.9 % (42-54); LYMPHOCYTES % (AUTO) 12.6 % (21.0-51.0); MEAN CORPUSCULAR HEMOGLOBIN 28.3 pg (27.0-33.0); MEAN CORPUSCULAR HGB CONC 32.3 g/dL (32.0-36.0); MEAN CORPUSCULAR VOLUME 87.6 fL (79-99); MONOCYTES % (AUTO) 3.7 % (3.0-13.0); NEUTROPHILS % (AUTO) 78.8 % (40.0-77.0); PLATELET COUNT (AUTO) 379 K/uL (130-400); RED BLOOD CELL COUNT(AUTO) 5.01 MIL/uL (4.50-6.20); WHITE BLOOD COUNT (AUTO) 22.1 K/uL (4.8-10.8)
[2020-11-04 09:28] LABS: CREATININE 1.1 mg/dL (0.5-1.5); POTASSIUM 4.4 mmol/L (3.5-5.1)
[2020-11-04] MEDS: PROPOFOL 1000 MG/100 ML 100 ML IV PRN ×3 (09:30→18:27)
[2020-11-04] MEDS ORDERED: FENTANYL CITRATE PF 0.05 MG/ML 1,000 MCG in 0.9%NACL 100ML 100 ML IVPB SCH ×2 (09:30→10:45)
[2020-11-04] MEDS: METOPROLOL TARTRATE 25 MG TAB PO SCH ×2 (09:30→20:38)
[2020-11-04] MEDS ORDERED: PROPOFOL 1000 MG/100 ML 100 ML IV SCH ×2 (09:30→10:45)
[2020-11-04 09:33] LABS: ALBUMIN 2.8 g/dL (3.5-5.0); BILIRUBIN,TOTAL 0.9 mg/dL (0.2-1.0); TOTAL PROTEIN, SERUM 6.7 g/dL (6.0-8.3)
[2020-11-04] MEDS: NACL NASAL SPRAY 120 SPRAY/BOTTLE NS SCH (10:00)
[2020-11-04] MEDS ORDERED: PHARMACY COMMUNICATION MISC SCH (10:45)
[2020-11-04] MEDS ORDERED: LACTATED RINGERS 1000ML 1,000 ML IV ONE (11:07)
[2020-11-04] MEDS ORDERED: NOREPINEPHRIN 4MG/NS 250ML 250 ML IV ONE (11:13)
[2020-11-04] MEDS ORDERED: NOREPINEPHRIN 4MG/NS 250ML 250 ML IV SCH (11:15)
[2020-11-04] MEDS ORDERED: MIDAZOLAM HCL 50 MG in 0.9%NACL 50ML 50 ML IV SCH (11:15)
[2020-11-04] MEDS: PHENYLEPHRINE HCL 50 MG in 0.9% NACL 250ML 250 ML IV PRN ×3 (11:30→18:27)
[2020-11-04] MEDS ORDERED: MIDAZOLAM 100MG-0.9% NS 100ML 100 ML IV SCH ×2 (11:30→12:30)
[2020-11-04] MEDS ORDERED: VASOPRESSIN 40 UNITS in 0.9%NACL 50ML 40 ML IV SCH (11:30)
[2020-11-04] MEDS: MIDAZOLAM 100MG-0.9% NS 100ML 100 ML IV SCH ×2 (11:30→22:43)
[2020-11-04 11:45] LABS: ABG BASE EXCESS -2.6 mmol/L (-2.0-3.0); ABG HCO3 25.7 mmol/L (21.0-28.0); ABG OXYGEN SATURATION 96.5 % (95.0-99.0); ABG PCO2 60 mmHg (35-48)
[2020-11-04] MEDS ORDERED: ALBUMIN (HUMAN) 25% 100 ML IV SCH (12:21)
[2020-11-04] MEDS: MEROPENEM 1 GM VIAL IVP SCH ×2 (12:32→18:25)
[2020-11-04] MEDS: ENOXAPARIN SODIUM 40 MG/0.4 ML SYRINGE SQ SCH ×2 (12:33→20:55)
[2020-11-04] MEDS: DEXAMETHASONE SOD PHOSPHATE 4 MG/ML 1ML VIAL IVP SCH ×2 (12:33→20:54)
[2020-11-04] MEDS: ROCURONIUM 100 MG/NS 100ML (DRIP) IV SCH ×8 (13:45→18:26)
[2020-11-04 16:43] LABS: ABG BASE EXCESS -2.1 mmol/L (-2.0-3.0); ABG HCO3 25.2 mmol/L (21.0-28.0); ABG OXYGEN SATURATION 97.5 % (95.0-99.0); ABG PCO2 53 mmHg (35-48)
[2020-11-04] MEDS: FENTANYL 2500MCG+NS 250ML 250 ML IV SCH (19:54)
[2020-11-04] MEDS: SODIUM CHLORIDE 0.9% IV SCH (21:42)
[2020-11-04] MEDS: ROCURONIUM BROMIDE IV SCH (21:42)
[2020-11-05] VITALS (27 sets, daily range): BP systolic 92–150; BP diastolic 55–78
[2020-11-05] MEDS: PHENYLEPHRINE HCL 50 MG in 0.9% NACL 250ML 250 ML IV PRN (00:39)
[2020-11-05] MEDS: LINEZOLID 600 MG/ISO-OSM 300 ML IV SCH ×2 (00:55→13:33)
[2020-11-05] MEDS: PROPOFOL 1000 MG/100 ML 100 ML IV PRN (00:58)
[2020-11-05] MEDS: MEROPENEM 1 GM VIAL IVP SCH ×3 (01:31→17:57)
[2020-11-05] MEDS: ROCURONIUM BROMIDE IV SCH ×3 (06:00→23:46)
[2020-11-05] MEDS: SODIUM CHLORIDE 0.9% IV SCH ×3 (06:00→23:46)
[2020-11-05 06:27] LABS: BASOPHILS % (AUTO) 0.1 % (0.0-5.0); EOSINOPHILS % (AUTO) 0.2 % (0.0-8.0); HEMATOCRIT 37.3 % (42-54); LYMPHOCYTES % (AUTO) 6.1 % (21.0-51.0); MEAN CORPUSCULAR HEMOGLOBIN 28.3 pg (27.0-33.0); MEAN CORPUSCULAR HGB CONC 31.1 g/dL (32.0-36.0); MONOCYTES % (AUTO) 3.3 % (3.0-13.0); NEUTROPHILS % (AUTO) 89.2 % (40.0-77.0); PLATELET COUNT (AUTO) 319 K/uL (130-400); RED CELL DISTRIBUTION WIDTH 13.2 % (11.0-15.5); WHITE BLOOD COUNT (AUTO) 15.7 K/uL (4.8-10.8)
[2020-11-05 06:51] LABS: ALBUMIN 2.2 g/dL (3.5-5.0); BILIRUBIN,DIRECT 0.1 mg/dL (0.0-0.3); BILIRUBIN,TOTAL 0.5 mg/dL (0.2-1.0); CREATININE 0.7 mg/dL (0.5-1.5); POTASSIUM 4.7 mmol/L (3.5-5.1); TOTAL PROTEIN, SERUM 5.7 g/dL (6.0-8.3)
[2020-11-05] MEDS: INSULIN LISPRO 100 UNIT/ML 3ML SQ SCH ×4 (07:30→20:24)
[2020-11-05] MEDS: FENTANYL 2500MCG+NS 250ML 250 ML IV SCH ×2 (08:00→21:50)
[2020-11-05 08:17] LABS: ABG BASE EXCESS 2.5 mmol/L (-2.0-3.0); ABG HCO3 27.6 mmol/L (21.0-28.0); ABG OXYGEN SATURATION 90.8 % (95.0-99.0); ABG PCO2 44 mmHg (35-48)
[2020-11-05] MEDS: QUETIAPINE FUMARATE 25 MG TAB PO SCH (09:00)
[2020-11-05] MEDS: LIDOCAINE 5% TOPICAL PATCH TP SCH (09:00)
[2020-11-05] MEDS ORDERED: FAMOTIDINE 20MG VIAL IV SCH (09:00)
[2020-11-05] MEDS: METOPROLOL TARTRATE 25 MG TAB PO SCH ×2 (09:30→20:24)
[2020-11-05] MEDS: NACL NASAL SPRAY 120 SPRAY/BOTTLE NS SCH (10:00)
[2020-11-05] MEDS: ZINC SULFATE 220 CAPSULE PO SCH (10:12)
[2020-11-05] MEDS: ASCORBIC ACID 500 MG TAB PO SCH (10:12)
[2020-11-05] MEDS: ASPIRIN 81MG CHEW TAB PO SCH (10:12)
[2020-11-05] MEDS: ENOXAPARIN SODIUM 40 MG/0.4 ML SYRINGE SQ SCH ×2 (10:14→20:30)
[2020-11-05] MEDS: DEXAMETHASONE SOD PHOSPHATE 4 MG/ML 1ML VIAL IVP SCH ×2 (10:14→20:30)
[2020-11-05 10:35] LABS: ABG BASE EXCESS 2.4 mmol/L (-2.0-3.0); ABG HCO3 27.2 mmol/L (21.0-28.0); ABG OXYGEN SATURATION 99.3 % (95.0-99.0); ABG PCO2 43 mmHg (35-48)
[2020-11-05] MEDS: MIDAZOLAM 100MG-0.9% NS 100ML 100 ML IV SCH ×2 (12:10→21:49)
[2020-11-06] VITALS (24 sets, daily range): BP systolic 102–134; BP diastolic 54–73
[2020-11-06] MEDS: MEROPENEM 1 GM VIAL IVP SCH ×3 (02:04→18:05)
[2020-11-06] MEDS: LINEZOLID 600 MG/ISO-OSM 300 ML IV SCH (02:04)
[2020-11-06 04:16] LABS: ABG BASE EXCESS 2.4 mmol/L (-2.0-3.0); ABG HCO3 26.9 mmol/L (21.0-28.0); ABG PCO2 41 mmHg (35-48)
[2020-11-06 04:46] LABS: BASOPHILS % (AUTO) 0.2 % (0.0-5.0); HEMATOCRIT 32.7 % (42-54); LYMPHOCYTES % (AUTO) 6.1 % (21.0-51.0); MEAN CORPUSCULAR HEMOGLOBIN 28.5 pg (27.0-33.0); MEAN CORPUSCULAR HGB CONC 31.5 g/dL (32.0-36.0); MEAN CORPUSCULAR VOLUME 90.6 fL (79-99); MONOCYTES % (AUTO) 2.4 % (3.0-13.0); NEUTROPHILS % (AUTO) 90.6 % (40.0-77.0); PLATELET COUNT (AUTO) 230 K/uL (130-400); RED BLOOD CELL COUNT(AUTO) 3.61 MIL/uL (4.50-6.20); RED CELL DISTRIBUTION WIDTH 13.1 % (11.0-15.5)
[2020-11-06 05:00] LABS: BILIRUBIN,TOTAL 0.4 mg/dL (0.2-1.0); CREATININE 0.7 mg/dL (0.5-1.5); POTASSIUM 4.7 mmol/L (3.5-5.1); TOTAL PROTEIN, SERUM 5.3 g/dL (6.0-8.3)
[2020-11-06] MEDS: INSULIN GLARGINE 100 UNITS/ML 10 ML VIAL SQ SCH (07:36)
[2020-11-06] MEDS: INSULIN LISPRO 100 UNIT/ML 3ML SQ SCH ×4 (07:38→20:53)
[2020-11-06] MEDS ORDERED: INSULIN GLARGINE 100 UNITS/ML 10 ML VIAL SQ SCH (08:00)
[2020-11-06] MEDS: LIDOCAINE 5% TOPICAL PATCH TP SCH (09:00)
[2020-11-06] MEDS: ENOXAPARIN SODIUM 40 MG/0.4 ML SYRINGE SQ SCH (09:00)
[2020-11-06] MEDS: PANTOPRAZOLE 40 MG/VIAL IVP SCH ×2 (10:01→20:54)
[2020-11-06] MEDS: METOPROLOL TARTRATE 25 MG TAB PO SCH ×2 (10:02→20:44)
[2020-11-06] MEDS: ZINC SULFATE 220 CAPSULE PO SCH (10:02)
[2020-11-06] MEDS: ASPIRIN 81MG CHEW TAB PO SCH (10:02)
[2020-11-06] MEDS: DEXAMETHASONE SOD PHOSPHATE 4 MG/ML 1ML VIAL IVP SCH ×2 (10:02→20:54)
[2020-11-06] MEDS: ASCORBIC ACID 500 MG TAB PO SCH (10:02)
[2020-11-06] MEDS ORDERED: PHARMACY COMMUNICATION MISC SCH (10:45)
[2020-11-06] MEDS ORDERED: DEXMEDETOMIDINE HCL 400 MCG in 0.9%NACL 100ML 100 ML IV SCH (10:45)
[2020-11-06 10:46] LABS: ABG BASE EXCESS 0.8 mmol/L (-2.0-3.0); ABG HCO3 26.2 mmol/L (21.0-28.0); ABG OXYGEN SATURATION 94.7 % (95.0-99.0); ABG PCO2 44 mmHg (35-48)
[2020-11-06] MEDS ORDERED: VECURONIUM 10MG/10ML IV SCH (11:30)
[2020-11-06] MEDS: PROPOFOL 1000 MG/100 ML 100 ML IV PRN ×3 (11:34→19:09)
[2020-11-06] MEDS: FENTANYL 2500MCG+NS 250ML 250 ML IV SCH (11:36)
[2020-11-07] VITALS (24 sets, daily range): BP systolic 106–139; BP diastolic 55–76
[2020-11-07] MEDS: MEROPENEM 1 GM VIAL IVP SCH ×3 (01:38→18:16)
[2020-11-07 04:13] LABS: BASOPHILS % (AUTO) 0.1 % (0.0-5.0); LYMPHOCYTES % (AUTO) 5.5 % (21.0-51.0); MEAN CORPUSCULAR HEMOGLOBIN 28.4 pg (27.0-33.0); MEAN CORPUSCULAR HGB CONC 31.5 g/dL (32.0-36.0); MEAN CORPUSCULAR VOLUME 90.2 fL (79-99); MONOCYTES % (AUTO) 3.8 % (3.0-13.0); NEUTROPHILS % (AUTO) 89.5 % (40.0-77.0); PLATELET COUNT (AUTO) 268 K/uL (130-400); RED BLOOD CELL COUNT(AUTO) 3.77 MIL/uL (4.50-6.20); RED CELL DISTRIBUTION WIDTH 13.2 % (11.0-15.5); WHITE BLOOD COUNT (AUTO) 8.9 K/uL (4.8-10.8)
[2020-11-07 04:25] LABS: CREATININE 0.5 mg/dL (0.5-1.5); POTASSIUM 4.8 mmol/L (3.5-5.1)
[2020-11-07] MEDS: FENTANYL 2500MCG+NS 250ML 250 ML IV SCH ×2 (04:58→18:17)
[2020-11-07] MEDS: PROPOFOL 1000 MG/100 ML 100 ML IV PRN ×5 (06:07→22:22)
[2020-11-07] MEDS: INSULIN GLARGINE 100 UNITS/ML 10 ML VIAL SQ SCH (08:01)
[2020-11-07] MEDS: INSULIN LISPRO 100 UNIT/ML 3ML SQ SCH ×4 (08:01→20:10)
[2020-11-07 08:24] LABS: ABG BASE EXCESS 2.1 mmol/L (-2.0-3.0); ABG OXYGEN SATURATION 90.1 % (95.0-99.0); ABG PCO2 43 mmHg (35-48)
[2020-11-07] MEDS: LIDOCAINE 5% TOPICAL PATCH TP SCH (09:00)
[2020-11-07] MEDS: ASPIRIN 81MG CHEW TAB PO SCH (09:13)
[2020-11-07] MEDS: PANTOPRAZOLE 40 MG/VIAL IVP SCH ×2 (09:13→20:04)
[2020-11-07] MEDS: ASCORBIC ACID 500 MG TAB PO SCH (09:13)
[2020-11-07] MEDS: ZINC SULFATE 220 CAPSULE PO SCH (09:13)
[2020-11-07] MEDS: DEXAMETHASONE SOD PHOSPHATE 4 MG/ML 1ML VIAL IVP SCH ×2 (09:14→20:03)
[2020-11-07] MEDS: VECURONIUM 10MG/10ML IV PRN ×2 (09:30→22:39)
[2020-11-07] MEDS: METOPROLOL TARTRATE 25 MG TAB PO SCH ×2 (09:30→19:25)
[2020-11-07] MEDS: DEXMEDETOMIDINE HCL 400 MCG in 0.9%NACL 100ML 100 ML IV PRN ×4 (11:19→20:22)
[2020-11-07] MEDS ORDERED: SENNOSIDES 8.6 MG TABLET PO SCH (19:00)
[2020-11-07] MEDS ORDERED: INSULIN GLARGINE 100 UNITS/ML 10 ML VIAL SQ SCH (21:00)
[2020-11-08] VITALS (35 sets, daily range): BP systolic 93–185; BP diastolic 48–96
[2020-11-08] MEDS: MEROPENEM 1 GM VIAL IVP SCH ×3 (01:35→18:03)
[2020-11-08] MEDS: VECURONIUM 10MG/10ML IV PRN ×2 (01:36→09:50)
[2020-11-08 03:41] LABS: BASOPHILS % (AUTO) 0.2 % (0.0-5.0); HEMATOCRIT 35.4 % (42-54); LYMPHOCYTES % (AUTO) 5.4 % (21.0-51.0); MEAN CORPUSCULAR HEMOGLOBIN 28.1 pg (27.0-33.0); MEAN CORPUSCULAR HGB CONC 31.6 g/dL (32.0-36.0); MEAN CORPUSCULAR VOLUME 88.9 fL (79-99); MONOCYTES % (AUTO) 3.5 % (3.0-13.0); NEUTROPHILS % (AUTO) 88.7 % (40.0-77.0); NUCLEATED RED BLOOD CELLS 0.3 % (0.0-0.19); PLATELET COUNT (AUTO) 257 K/uL (130-400); RED BLOOD CELL COUNT(AUTO) 3.98 MIL/uL (4.50-6.20); RED CELL DISTRIBUTION WIDTH 13.1 % (11.0-15.5); WHITE BLOOD COUNT (AUTO) 8.9 K/uL (4.8-10.8)
[2020-11-08 03:55] LABS: CREATININE 0.6 mg/dL (0.5-1.5); CRP QUANTITATIVE 11.2 mg/L (0.00-9.0); POTASSIUM 4.9 mmol/L (3.5-5.1)
[2020-11-08] MEDS: PROPOFOL 1000 MG/100 ML 100 ML IV PRN ×5 (03:58→20:59)
[2020-11-08 07:09] LABS: ABG BASE EXCESS -0.4 mmol/L (-2.0-3.0); ABG HCO3 25.7 mmol/L (21.0-28.0); ABG OXYGEN SATURATION 97.2 % (95.0-99.0); ABG PCO2 47 mmHg (35-48)
[2020-11-08] MEDS: INSULIN LISPRO 100 UNIT/ML 3ML SQ SCH ×5 (08:03→21:06)
[2020-11-08] MEDS: FENTANYL 2500MCG+NS 250ML 250 ML IV SCH (08:03)
[2020-11-08] MEDS: PHENYLEPHRINE HCL 50 MG in 0.9% NACL 250ML 250 ML IV PRN (08:04)
[2020-11-08] MEDS: LIDOCAINE 5% TOPICAL PATCH TP SCH (09:00)
[2020-11-08] MEDS: DOCUSATE NA 100MG/10ML UDCUP GT SCH (09:14)
[2020-11-08] MEDS: ASCORBIC ACID 500 MG TAB PO SCH (09:14)
[2020-11-08] MEDS: ZINC SULFATE 220 CAPSULE PO SCH (09:15)
[2020-11-08] MEDS: SENNOSIDES 8.6 MG TABLET GT SCH (09:15)
[2020-11-08] MEDS: POLYETHYLENE GLYCOL 3350 17 GM POWD.PACK GT SCH (09:15)
[2020-11-08] MEDS: DEXAMETHASONE SOD PHOSPHATE 4 MG/ML 1ML VIAL IVP SCH ×2 (09:16→21:00)
[2020-11-08] MEDS: ASPIRIN 81MG CHEW TAB PO SCH (09:16)
[2020-11-08] MEDS: METOPROLOL TARTRATE 25 MG TAB PO SCH ×2 (09:17→21:05)
[2020-11-08] MEDS: PANTOPRAZOLE 40 MG/VIAL IVP SCH ×2 (09:17→21:00)
[2020-11-08] MEDS ORDERED: ENOXAPARIN SODIUM 40 MG/0.4 ML SYRINGE SQ SCH (14:00)
[2020-11-08] MEDS ORDERED: FUROSEMIDE 40MG VIAL IVP SCH (14:33)
[2020-11-08] MEDS: VECURONIUM 10MG/10ML 50 MG in 0.9%NACL 50ML 50 ML IV SCH ×2 (16:25→22:08)
[2020-11-08] MEDS ORDERED: INSULIN GLARGINE 100 UNITS/ML 10 ML VIAL SQ SCH (21:00)
[2020-11-08] MEDS: DEXMEDETOMIDINE HCL 400 MCG in 0.9%NACL 100ML 100 ML IV PRN (22:07)
[2020-11-09] VITALS (40 sets, daily range): BP systolic 89–176; BP diastolic 48–101
[2020-11-09] MEDS: FENTANYL 2500MCG+NS 250ML 250 ML IV SCH ×2 (00:41→20:55)
[2020-11-09] MEDS: MEROPENEM 1 GM VIAL IVP SCH ×3 (01:47→17:59)
[2020-11-09] MEDS: PROPOFOL 1000 MG/100 ML 100 ML IV PRN ×5 (01:50→20:55)
[2020-11-09] MEDS: VECURONIUM 10MG/10ML 50 MG in 0.9%NACL 50ML 50 ML IV SCH ×3 (01:50→22:31)
[2020-11-09] MEDS: PHENYLEPHRINE HCL 50 MG in 0.9% NACL 250ML 250 ML IV PRN ×2 (01:52→12:00)
[2020-11-09] MEDS: INSULIN LISPRO 100 UNIT/ML 3ML SQ SCH ×8 (02:10→20:54)
[2020-11-09 05:20] LABS: ABG HCO3 29.3 mmol/L (21.0-28.0); ABG OXYGEN SATURATION 93.7 % (95.0-99.0); ABG PCO2 51 mmHg (35-48)
[2020-11-09 05:52] LABS: BASOPHILS % (AUTO) 0.3 % (0.0-5.0); EOSINOPHILS % (AUTO) 0.1 % (0.0-8.0); HEMATOCRIT 38.2 % (42-54); LYMPHOCYTES % (AUTO) 7.9 % (21.0-51.0); MEAN CORPUSCULAR HEMOGLOBIN 28.4 pg (27.0-33.0); MEAN CORPUSCULAR HGB CONC 30.9 g/dL (32.0-36.0); MONOCYTES % (AUTO) 6.2 % (3.0-13.0); NEUTROPHILS % (AUTO) 81.5 % (40.0-77.0); NUCLEATED RED BLOOD CELLS 0.9 % (0.0-0.19); PLATELET COUNT (AUTO) 279 K/uL (130-400); RED BLOOD CELL COUNT(AUTO) 4.15 MIL/uL (4.50-6.20); RED CELL DISTRIBUTION WIDTH 13.6 % (11.0-15.5); WHITE BLOOD COUNT (AUTO) 12.8 K/uL (4.8-10.8)
[2020-11-09 06:16] LABS: ALBUMIN 2.5 g/dL (3.5-5.0); BILIRUBIN,TOTAL 0.3 mg/dL (0.2-1.0); CREATININE 0.4 mg/dL (0.5-1.5); MAGNESIUM 1.9 mg/dL (1.80-2.40); TOTAL PROTEIN, SERUM 5.9 g/dL (6.0-8.3)
[2020-11-09] MEDS ORDERED: MIDAZOLAM HCL 1 MG/ML 2ML VIAL IV SCH (07:45)
[2020-11-09] MEDS: DEXMEDETOMIDINE HCL 400 MCG in 0.9%NACL 100ML 100 ML IV PRN ×4 (08:00→22:32)
[2020-11-09] MEDS ORDERED: MIDAZOLAM 100MG-0.9% NS 100ML 100 ML IV SCH (08:15)
[2020-11-09] MEDS ORDERED: PHARMACY COMMUNICATION MISC SCH ×2 (08:15→12:45)
[2020-11-09] MEDS: LIDOCAINE 5% TOPICAL PATCH TP SCH (09:00)
[2020-11-09 09:06] LABS: ABG BASE EXCESS 1.5 mmol/L (-2.0-3.0); ABG HCO3 26.1 mmol/L (21.0-28.0); ABG OXYGEN SATURATION 89.7 % (95.0-99.0); ABG PCO2 41 mmHg (35-48)
[2020-11-09] MEDS: DOCUSATE NA 100MG/10ML UDCUP GT SCH (09:23)
[2020-11-09] MEDS: POLYETHYLENE GLYCOL 3350 17 GM POWD.PACK GT SCH (09:23)
[2020-11-09] MEDS: ASPIRIN 81MG CHEW TAB PO SCH (09:24)
[2020-11-09] MEDS: PANTOPRAZOLE 40 MG/VIAL IVP SCH ×2 (09:24→20:49)
[2020-11-09] MEDS: SENNOSIDES 8.6 MG TABLET GT SCH (09:24)
[2020-11-09] MEDS: ASCORBIC ACID 500 MG TAB PO SCH (09:24)
[2020-11-09] MEDS: DEXAMETHASONE SOD PHOSPHATE 4 MG/ML 1ML VIAL IVP SCH (09:24)
[2020-11-09] MEDS: ZINC SULFATE 220 CAPSULE PO SCH (09:24)
[2020-11-09] MEDS: ENOXAPARIN SODIUM 40 MG/0.4 ML SYRINGE SQ SCH ×2 (09:25→20:50)
[2020-11-09] MEDS: METOPROLOL TARTRATE 25 MG TAB PO SCH ×2 (09:26→21:16)
[2020-11-09] MEDS ORDERED: FENTANYL 2500MCG+NS 250ML 250 ML IV ONE (12:25)
[2020-11-09] MEDS ORDERED: KETAMINE 50MG/ML SYRINGE 100 MG in 0.9%NACL 100ML 100 ML IV SCH (13:17)
[2020-11-09] MEDS: FUROSEMIDE 20MG VIAL IV SCH (13:38)
[2020-11-09] MEDS ORDERED: COMPOUND NARC IV MISC 1 EACH IVSOLN MISC PRN (14:00)
[2020-11-09] MEDS: KETAMINE 50MG/ML SYRINGE 500 MG in 0.9% NACL 500ML IV.SOLN 500 ML IV SCH ×2 (18:00→21:00)
[2020-11-09] MEDS: INSULIN GLARGINE 100 UNITS/ML 10 ML VIAL SQ SCH (20:53)
[2020-11-10] VITALS (39 sets, daily range): BP systolic 78–206; BP diastolic 41–95
[2020-11-10] MEDS: PROPOFOL 1000 MG/100 ML 100 ML IV PRN ×7 (00:01→23:46)
[2020-11-10] MEDS: FUROSEMIDE 20MG VIAL IV SCH ×2 (00:07→12:37)
[2020-11-10] MEDS: INSULIN LISPRO 100 UNIT/ML 3ML SQ SCH ×8 (00:17→22:01)
[2020-11-10] MEDS: MEROPENEM 1 GM VIAL IVP SCH ×3 (02:05→18:22)
[2020-11-10] MEDS: DEXMEDETOMIDINE HCL 400 MCG in 0.9%NACL 100ML 100 ML IV PRN ×6 (02:24→23:46)
[2020-11-10] MEDS: VECURONIUM 10MG/10ML 50 MG in 0.9%NACL 50ML 50 ML IV SCH ×3 (03:28→16:14)
[2020-11-10 05:58] LABS: BASOPHILS % (AUTO) 0.3 % (0.0-5.0); EOSINOPHILS % (AUTO) 2.2 % (0.0-8.0); LYMPHOCYTES % (AUTO) 27.4 % (21.0-51.0); MEAN CORPUSCULAR HEMOGLOBIN 28.8 pg (27.0-33.0); MEAN CORPUSCULAR HGB CONC 31.8 g/dL (32.0-36.0); MEAN CORPUSCULAR VOLUME 90.7 fL (79-99); NEUTROPHILS % (AUTO) 61.6 % (40.0-77.0); NUCLEATED RED BLOOD CELLS 0.7 % (0.0-0.19); PLATELET COUNT (AUTO) 239 K/uL (130-400); WHITE BLOOD COUNT (AUTO) 13.3 K/uL (4.8-10.8)
[2020-11-10 06:37] LABS: ALBUMIN 2.5 g/dL (3.5-5.0); BILIRUBIN,TOTAL 0.4 mg/dL (0.2-1.0); CREATININE 0.6 mg/dL (0.5-1.5); POTASSIUM 4.1 mmol/L (3.5-5.1); TOTAL PROTEIN, SERUM 5.9 g/dL (6.0-8.3)
[2020-11-10 06:58] LABS: ABG BASE EXCESS 6.6 mmol/L (-2.0-3.0); ABG HCO3 30.8 mmol/L (21.0-28.0); ABG OXYGEN SATURATION 93.3 % (95.0-99.0); ABG PCO2 42 mmHg (35-48)
[2020-11-10] MEDS: PANTOPRAZOLE 40 MG TAB DR PO SCH ×2 (09:00→21:55)
[2020-11-10] MEDS: PHENYLEPHRINE HCL 50 MG in 0.9% NACL 250ML 250 ML IV PRN (09:14)
[2020-11-10] MEDS: ZINC SULFATE 220 CAPSULE PO SCH (09:24)
[2020-11-10] MEDS: SENNOSIDES 8.6 MG TABLET GT SCH (09:24)
[2020-11-10] MEDS: ASPIRIN 81MG CHEW TAB PO SCH (09:24)
[2020-11-10] MEDS: DOCUSATE NA 100MG/10ML UDCUP GT SCH (09:24)
[2020-11-10] MEDS: ASCORBIC ACID 500 MG TAB PO SCH (09:24)
[2020-11-10] MEDS: POLYETHYLENE GLYCOL 3350 17 GM POWD.PACK GT SCH (09:24)
[2020-11-10] MEDS: DEXAMETHASONE SOD PHOSPHATE 4 MG/ML 1ML VIAL IVP SCH (09:25)
[2020-11-10] MEDS: METOPROLOL TARTRATE 25 MG TAB PO SCH (09:25)
[2020-11-10] MEDS: ENOXAPARIN SODIUM 40 MG/0.4 ML SYRINGE SQ SCH ×2 (09:26→21:56)
[2020-11-10] MEDS: FENTANYL 2500MCG+NS 250ML 250 ML IV SCH (12:21)
[2020-11-10] MEDS: KETAMINE 50MG/ML SYRINGE 500 MG in 0.9% NACL 500ML IV.SOLN 500 ML IV SCH (12:36)
[2020-11-10] MEDS ORDERED: 0.9% NACL 500ML IV.SOLN 500 ML IV ONE (13:55)
[2020-11-10] MEDS: VASOPRESSIN 20 UNITS in 0.9%NACL 100ML 100 ML IV SCH (18:47)
[2020-11-10] MEDS: INSULIN GLARGINE 100 UNITS/ML 10 ML VIAL SQ SCH (21:59)
[2020-11-10] MEDS: NOREPINEPHRIN 4MG/NS 250ML 250 ML IV SCH (23:48)
[2020-11-11] VITALS (38 sets, daily range): BP systolic 58–191; BP diastolic 38–88
[2020-11-11] MEDS ORDERED: PHARMACY COMMUNICATION MISC SCH (00:15)
[2020-11-11] MEDS ORDERED: DOPAMINE HCL 400 MG/D5%-WATER 250 ML IV ONE (03:02)
[2020-11-11] MEDS: MEROPENEM 1 GM VIAL IVP SCH ×3 (03:57→18:07)
[2020-11-11] MEDS: FUROSEMIDE 20MG VIAL IV SCH ×2 (03:58→12:02)
[2020-11-11] MEDS: VECURONIUM 10MG/10ML 50 MG in 0.9%NACL 50ML 50 ML IV SCH ×3 (04:02→17:38)
[2020-11-11] MEDS: VASOPRESSIN 20 UNITS in 0.9%NACL 100ML 100 ML IV SCH ×3 (04:21→21:31)
[2020-11-11] MEDS: DEXMEDETOMIDINE HCL 400 MCG in 0.9%NACL 100ML 100 ML IV PRN ×5 (04:22→21:28)
[2020-11-11] MEDS: PROPOFOL 1000 MG/100 ML 100 ML IV PRN ×5 (04:59→21:27)
[2020-11-11 05:15] LABS: ABG BASE EXCESS 3.8 mmol/L (-2.0-3.0); ABG HCO3 31.7 mmol/L (21.0-28.0); ABG OXYGEN SATURATION 90.4 % (95.0-99.0); ABG PCO2 62 mmHg (35-48)
[2020-11-11] MEDS: NOREPINEPHRIN 4MG/NS 250ML 250 ML IV SCH ×3 (05:44→19:31)
[2020-11-11] MEDS: INSULIN LISPRO 100 UNIT/ML 3ML SQ SCH ×2 (05:48)
[2020-11-11 06:14] LABS: BASOPHILS % (AUTO) 0.2 % (0.0-5.0); EOSINOPHILS % (AUTO) 0.5 % (0.0-8.0); HEMATOCRIT 41.8 % (42-54); LYMPHOCYTES % (AUTO) 5.7 % (21.0-51.0); MEAN CORPUSCULAR HEMOGLOBIN 28.4 pg (27.0-33.0); MEAN CORPUSCULAR HGB CONC 30.6 g/dL (32.0-36.0); MEAN CORPUSCULAR VOLUME 92.9 fL (79-99); MONOCYTES % (AUTO) 6.1 % (3.0-13.0); NEUTROPHILS % (AUTO) 85.8 % (40.0-77.0); NUCLEATED RED BLOOD CELLS 0.1 % (0.0-0.19); PLATELET COUNT (AUTO) 262 K/uL (130-400); RED CELL DISTRIBUTION WIDTH 14.1 % (11.0-15.5); WHITE BLOOD COUNT (AUTO) 20.5 K/uL (4.8-10.8)
[2020-11-11] MEDS ORDERED: INSULIN REGULAR, HUMAN 3ML 100 UNIT in 0.9%NACL 100ML 99 ML IV PRN ×2 (07:00)
[2020-11-11 07:24] LABS: CREATININE 0.7 mg/dL (0.5-1.5); CRP QUANTITATIVE 22.8 mg/L (0.00-9.0); POTASSIUM 4.6 mmol/L (3.5-5.1)
[2020-11-11] MEDS ORDERED: DIPYRIDAMOLE 25 MG TABLET PO SCH (09:00)
[2020-11-11] MEDS: PANTOPRAZOLE 40 MG TAB DR PO SCH (09:00)
[2020-11-11] MEDS: ZINC SULFATE 220 CAPSULE PO SCH (09:21)
[2020-11-11] MEDS: SENNOSIDES 8.6 MG TABLET GT SCH (09:21)
[2020-11-11] MEDS: DOCUSATE NA 100MG/10ML UDCUP GT SCH (09:22)
[2020-11-11] MEDS: ASCORBIC ACID 500 MG TAB PO SCH (09:22)
[2020-11-11] MEDS: POLYETHYLENE GLYCOL 3350 17 GM POWD.PACK GT SCH (09:22)
[2020-11-11] MEDS: DEXAMETHASONE SOD PHOSPHATE 4 MG/ML 1ML VIAL IVP SCH (09:23)
[2020-11-11] MEDS: ENOXAPARIN SODIUM 40 MG/0.4 ML SYRINGE SQ SCH ×2 (09:24→21:44)
[2020-11-11] MEDS: KETAMINE 50MG/ML SYRINGE 500 MG in 0.9% NACL 500ML IV.SOLN 500 ML IV SCH (16:08)
[2020-11-11] MEDS: FAMOTIDINE 20MG VIAL IV SCH (22:29)
[2020-11-12] VITALS (38 sets, daily range): BP systolic 104–219; BP diastolic 59–119
[2020-11-12] MEDS: FUROSEMIDE 20MG VIAL IV SCH (01:01)
[2020-11-12] MEDS: PROPOFOL 1000 MG/100 ML 100 ML IV PRN ×5 (01:03→22:08)
[2020-11-12] MEDS: VECURONIUM 10MG/10ML 50 MG in 0.9%NACL 50ML 50 ML IV SCH ×2 (01:05→08:15)
[2020-11-12] MEDS: DEXMEDETOMIDINE HCL 400 MCG in 0.9%NACL 100ML 100 ML IV PRN ×7 (01:05→23:46)
[2020-11-12] MEDS: MEROPENEM 1 GM VIAL IVP SCH ×3 (02:15→17:34)
[2020-11-12] MEDS: NOREPINEPHRIN 4MG/NS 250ML 250 ML IV SCH (02:39)
[2020-11-12] MEDS: VASOPRESSIN 20 UNITS in 0.9%NACL 100ML 100 ML IV SCH ×2 (05:17→17:18)
[2020-11-12 05:46] LABS: EOSINOPHILS % (AUTO) 0.1 % (0.0-8.0); HEMATOCRIT 38.8 % (42-54); LYMPHOCYTES % (AUTO) 5.7 % (21.0-51.0); MEAN CORPUSCULAR HEMOGLOBIN 28.2 pg (27.0-33.0); MEAN CORPUSCULAR HGB CONC 30.4 g/dL (32.0-36.0); MEAN CORPUSCULAR VOLUME 92.6 fL (79-99); MONOCYTES % (AUTO) 1.6 % (3.0-13.0); NUCLEATED RED BLOOD CELLS 0.1 % (0.0-0.19); PLATELET COUNT (AUTO) 342 K/uL (130-400); RED BLOOD CELL COUNT(AUTO) 4.19 MIL/uL (4.50-6.20); RED CELL DISTRIBUTION WIDTH 16.9 % (11.0-15.5)
[2020-11-12 05:49] LABS: WHITE BLOOD COUNT (AUTO) 42.4 K/uL (4.8-10.8)
[2020-11-12 06:05] LABS: ALBUMIN 1.4 g/dL (3.5-5.0); BILIRUBIN,TOTAL 0.4 mg/dL (0.2-1.0); CREATININE 1.5 mg/dL (0.5-1.5); CRP QUANTITATIVE 168.1 mg/L (0.00-9.0); POTASSIUM 4.5 mmol/L (3.5-5.1); TOTAL PROTEIN, SERUM 5.1 g/dL (6.0-8.3)
[2020-11-12 06:08] LABS: BAND NEUTROPHILS % (MANUAL) 1 % (0-2); LYMPHOCYTES % (MANUAL) 6 % (22-44); MAN.DIFF COMMENT-IMPRESSION MANUAL DIFFERENTIAL; MONOCYTES % (MANUAL) 3 % (2-9); SEGMENTED NEUTROPHILS % 90 % (40-70)
[2020-11-12] MEDS: ASCORBIC ACID 500 MG TAB PO SCH (07:53)
[2020-11-12] MEDS: FAMOTIDINE 20MG VIAL IV SCH ×2 (07:53→21:16)
[2020-11-12] MEDS: DIPYRIDAMOLE 25 MG TABLET PO SCH (07:53)
[2020-11-12] MEDS: DEXAMETHASONE SOD PHOSPHATE 4 MG/ML 1ML VIAL IVP SCH (07:53)
[2020-11-12] MEDS: ZINC SULFATE 220 CAPSULE PO SCH (07:53)
[2020-11-12] MEDS: ENOXAPARIN SODIUM 40 MG/0.4 ML SYRINGE SQ SCH (07:54)
[2020-11-12] MEDS ORDERED: PANTOPRAZOLE 40 MG/VIAL IVP SCH (09:00)
[2020-11-12] MEDS ORDERED: PHARMACY COMMUNICATION MISC SCH (10:15)
[2020-11-12] MEDS: FENTANYL 2500MCG+NS 250ML 250 ML IV SCH (11:43)
[2020-11-12] MEDS: [UNRECOGNIZED DRUG - REMARK] MISC SCH ×4 (13:45→17:36)
[2020-11-12] MEDS ORDERED: VANCOMYCIN PROTOCOL PER PHARMACY IV SCH (13:45)
[2020-11-12] MEDS ORDERED: COMPOUND IV REFRIGERATED 1 EACH IVSOLN MISC PRN (14:00)
[2020-11-12 14:12] LABS: CREATININE 0.5 mg/dL (0.5-1.5); POTASSIUM 5.1 mmol/L (3.5-5.1)
[2020-11-12] MEDS: LACTATED RINGERS 1000ML 1,000 ML IV SCH (15:36)
[2020-11-12] MEDS: CISATRACURIUM BESYLATE 100 MG in 0.9%NACL 100ML 100 ML IV SCH (15:54)
[2020-11-12] MEDS ORDERED: VANCOMYCIN 1G 2 GM in 0.9% NACL 500ML IV.SOLN 500 ML IV ONE (16:00)
[2020-11-12] MEDS: INSULIN LISPRO 100 UNIT/ML 3ML SQ SCH ×2 (17:28→17:35)
[2020-11-12] MEDS ORDERED: INSULIN GLARGINE 100 UNITS/ML 10 ML VIAL SQ SCH (21:00)
[2020-11-12] MEDS: KETAMINE 50MG/ML SYRINGE 500 MG in 0.9% NACL 500ML IV.SOLN 500 ML IV SCH (21:04)
[2020-11-12] MEDS: MICAFUNGIN 100MG+NS 100ML 100 ML IV SCH (21:15)
[2020-11-13] VITALS (35 sets, daily range): BP systolic 83–191; BP diastolic 39–118
[2020-11-13] MEDS: PROPOFOL 1000 MG/100 ML 100 ML IV PRN ×7 (00:34→23:59)
[2020-11-13] MEDS: DEXMEDETOMIDINE HCL 400 MCG in 0.9%NACL 100ML 100 ML IV PRN ×6 (00:35→21:15)
[2020-11-13] MEDS: VASOPRESSIN 20 UNITS in 0.9%NACL 100ML 100 ML IV SCH (03:14)
[2020-11-13] MEDS: MEROPENEM 1 GM VIAL IVP SCH ×3 (03:22→18:43)
[2020-11-13] MEDS: LACTATED RINGERS 1000ML 1,000 ML IV SCH ×2 (03:36→17:51)
[2020-11-13] MEDS: VANCOMYCIN 1G/250ML KIT 250 ML IV SCH ×2 (05:56→18:44)
[2020-11-13 06:01] LABS: BASOPHILS % (AUTO) 0.1 % (0.0-5.0); EOSINOPHILS % (AUTO) 3.4 % (0.0-8.0); HEMATOCRIT 29.3 % (42-54); LYMPHOCYTES % (AUTO) 9.3 % (21.0-51.0); MEAN CORPUSCULAR HEMOGLOBIN 29.5 pg (27.0-33.0); MEAN CORPUSCULAR HGB CONC 32.1 g/dL (32.0-36.0); MEAN CORPUSCULAR VOLUME 91.8 fL (79-99); MONOCYTES % (AUTO) 7.2 % (3.0-13.0); NEUTROPHILS % (AUTO) 79.3 % (40.0-77.0); NUCLEATED RED BLOOD CELLS 0.2 % (0.0-0.19); PLATELET COUNT (AUTO) 162 K/uL (130-400); RED BLOOD CELL COUNT(AUTO) 3.19 MIL/uL (4.50-6.20); RED CELL DISTRIBUTION WIDTH 14.1 % (11.0-15.5); WHITE BLOOD COUNT (AUTO) 9.3 K/uL (4.8-10.8)
[2020-11-13 06:21] LABS: ALBUMIN 1.8 g/dL (3.5-5.0); BILIRUBIN,TOTAL 0.4 mg/dL (0.2-1.0); CREATININE 0.4 mg/dL (0.5-1.5); MAGNESIUM 1.7 mg/dL (1.80-2.40); PHOSPHORUS 2.4 mg/dL (2.5-4.9); POTASSIUM 4.3 mmol/L (3.5-5.1); TOTAL PROTEIN, SERUM 5.2 g/dL (6.0-8.3)
[2020-11-13 06:21] LABS: APPEARANCE,URINE Cloudy (CLEAR); BILIRUBIN,URINE Negative (NEGATIVE); COLOR,URINE Yellow (YELLOW); GLUCOSE, URINE (UA) >=1000 mg/dL (NEGATIVE); KETONES,URINE 15 mg/dL (NEGATIVE); LEUKOCYTE ESTERASE ,URINE Negative (NEGATIVE); NITRATE,URINE Negative (NEGATIVE); OCCULT BLOOD,URINE Negative (NEGATIVE); PH,URINE 5.5 (5.0-8.0); PROTEIN,URINE Negative (NEGATIVE)
[2020-11-13 06:24] LABS: CHLORIDE,URINE RANDOM 97 mmol/L (110-250); CREATININE,URINE RANDOM 97 mg/dL (30-135); POTASSIUM,URINE RANDOM 80 mmol/L (25-125); SODIUM,URINE RANDOM 46 mmol/l (40-220)
[2020-11-13 07:08] LABS: BACTERIA,URINE Few /HPF (None Seen); RBC,URINE None Seen /HPF (0-1); WBC,URINE 0-1 /HPF (0-1); YEAST,URINE BUDDING Many /HPF (None Seen)
[2020-11-13] MEDS: DEXAMETHASONE SOD PHOSPHATE 4 MG/ML 1ML VIAL IVP SCH (09:53)
[2020-11-13] MEDS: ZINC SULFATE 220 CAPSULE PO SCH (09:53)
[2020-11-13] MEDS: FAMOTIDINE 20MG VIAL IV SCH ×2 (09:53→21:13)
[2020-11-13] MEDS: DIPYRIDAMOLE 25 MG TABLET PO SCH (09:53)
[2020-11-13] MEDS: ASCORBIC ACID 500 MG TAB PO SCH (09:53)
[2020-11-13 10:21] LABS: HEMATOCRIT 29.2 % (42-54); MEAN CORPUSCULAR HEMOGLOBIN 29.4 pg (27.0-33.0); MEAN CORPUSCULAR HGB CONC 31.8 g/dL (32.0-36.0); MEAN CORPUSCULAR VOLUME 92.4 fL (79-99); PLATELET COUNT (AUTO) 164 K/uL (130-400); RED BLOOD CELL COUNT(AUTO) 3.16 MIL/uL (4.50-6.20); RED CELL DISTRIBUTION WIDTH 14.1 % (11.0-15.5); WHITE BLOOD COUNT (AUTO) 9.4 K/uL (4.8-10.8)
[2020-11-13 12:07] LABS: EOSINOPHILS % (MANUAL) 5 % (1-6); LYMPHOCYTES % (MANUAL) 6 % (22-44); MONOCYTES % (MANUAL) 3 % (2-9); SEGMENTED NEUTROPHILS % 86 % (40-70)
[2020-11-13 12:08] LABS: MAN.DIFF COMMENT-IMPRESSION MANUAL DIFFERENTIAL; PLATELET MORPHOLOGY COMMENT ADEQUATE
[2020-11-13] MEDS: MAGNESIUM 2GM PREMIX 50ML 50 ML IV SCH (16:45)
[2020-11-13] MEDS: CISATRACURIUM BESYLATE 100 MG in 0.9%NACL 100ML 100 ML IV SCH (19:05)
[2020-11-13] MEDS: MICAFUNGIN 100MG+NS 100ML 100 ML IV SCH (21:19)
[2020-11-13] MEDS: KETAMINE 50MG/ML SYRINGE 500 MG in 0.9% NACL 500ML IV.SOLN 500 ML IV SCH (23:57)
[2020-11-14] VITALS (35 sets, daily range): BP systolic 87–173; BP diastolic 50–92
[2020-11-14] MEDS: MEROPENEM 1 GM VIAL IVP SCH ×3 (01:08→18:25)
[2020-11-14] MEDS ORDERED: FENTANYL 2500MCG+NS 250ML 250 ML IV ONE (02:16)
[2020-11-14] MEDS: PROPOFOL 1000 MG/100 ML 100 ML IV PRN ×5 (03:44→18:18)
[2020-11-14] MEDS: VANCOMYCIN 1G/250ML KIT 250 ML IV SCH ×2 (05:26→18:25)
[2020-11-14 05:46] LABS: BASOPHILS % (AUTO) 0.1 % (0.0-5.0); EOSINOPHILS % (AUTO) 0.6 % (0.0-8.0); HEMATOCRIT 32.2 % (42-54); LYMPHOCYTES % (AUTO) 5.8 % (21.0-51.0); MEAN CORPUSCULAR HEMOGLOBIN 28.7 pg (27.0-33.0); MEAN CORPUSCULAR HGB CONC 31.1 g/dL (32.0-36.0); MEAN CORPUSCULAR VOLUME 92.5 fL (79-99); PLATELET COUNT (AUTO) 169 K/uL (130-400); RED BLOOD CELL COUNT(AUTO) 3.48 MIL/uL (4.50-6.20); RED CELL DISTRIBUTION WIDTH 14.4 % (11.0-15.5); WHITE BLOOD COUNT (AUTO) 9.9 K/uL (4.8-10.8)
[2020-11-14 06:15] LABS: CREATININE 0.6 mg/dL (0.5-1.5); CRP QUANTITATIVE 66.5 mg/L (0.00-9.0)
[2020-11-14] MEDS: LACTATED RINGERS 1000ML 1,000 ML IV SCH (08:06)
[2020-11-14] MEDS: FAMOTIDINE 20MG VIAL IV SCH (08:06)
[2020-11-14] MEDS: DEXAMETHASONE SOD PHOSPHATE 4 MG/ML 1ML VIAL IVP SCH (08:07)
[2020-11-14] MEDS: DIPYRIDAMOLE 25 MG TABLET PO SCH (08:07)
[2020-11-14] MEDS: DEXMEDETOMIDINE HCL 400 MCG in 0.9%NACL 100ML 100 ML IV PRN ×3 (09:11→18:20)
[2020-11-14] MEDS ORDERED: PANTOPRAZOLE 40 MG/VIAL IVP SCH (11:39)
[2020-11-14 12:30] LABS: ABG BASE EXCESS 6.4 mmol/L (-2.0-3.0); ABG OXYGEN SATURATION 96.1 % (95.0-99.0); ABG PCO2 61 mmHg (35-48)
[2020-11-14] MEDS ORDERED: FENTANYL CITRATE PF 0.05 MG/ML 1,000 MCG in 0.9%NACL 100ML 100 ML IVPB SCH (13:30)
[2020-11-14] MEDS ORDERED: PHARMACY COMMUNICATION MISC SCH (13:30)
[2020-11-14] MEDS ORDERED: DEXMEDETOMIDINE HCL 200 MCG in 0.9%NACL 50ML 50 ML IV SCH (13:30)
[2020-11-14] MEDS: FAMOTIDINE 20MG TAB NG SCH ×2 (13:56→21:32)
[2020-11-14 14:44] LABS: BASOPHILS % (AUTO) 0.1 % (0.0-5.0); EOSINOPHILS % (AUTO) 0.1 % (0.0-8.0); HEMATOCRIT 35.2 % (42-54); LYMPHOCYTES % (AUTO) 3.6 % (21.0-51.0); MEAN CORPUSCULAR HEMOGLOBIN 28.7 pg (27.0-33.0); MEAN CORPUSCULAR HGB CONC 29.8 g/dL (32.0-36.0); MEAN CORPUSCULAR VOLUME 96.2 fL (79-99); MONOCYTES % (AUTO) 6.2 % (3.0-13.0); NEUTROPHILS % (AUTO) 89.4 % (40.0-77.0); PLATELET COUNT (AUTO) 218 K/uL (130-400); RED BLOOD CELL COUNT(AUTO) 3.66 MIL/uL (4.50-6.20); RED CELL DISTRIBUTION WIDTH 14.9 % (11.0-15.5); WHITE BLOOD COUNT (AUTO) 15.1 K/uL (4.8-10.8)
[2020-11-14] MEDS: PANTOPRAZOLE 40MG INJ 80 MG in 0.9%NACL 100ML 100 ML IVP SCH (14:50)
[2020-11-14] MEDS: CISATRACURIUM BESYLATE 100 MG in 0.9%NACL 100ML 100 ML IV SCH (18:21)
[2020-11-14] MEDS: METOPROLOL TARTRATE 25 MG TAB PO SCH (18:24)
[2020-11-14] MEDS: MICAFUNGIN 100MG+NS 100ML 100 ML IV SCH (21:33)
[2020-11-15] VITALS (36 sets, daily range): BP systolic 89–166; BP diastolic 48–103
[2020-11-15] MEDS ORDERED: ENOXAPARIN SODIUM 40 MG/0.4 ML SYRINGE SQ ONE (01:10)
[2020-11-15] MEDS: ENOXAPARIN SODIUM 40 MG/0.4 ML SYRINGE SQ SCH ×3 (01:12→10:38)
[2020-11-15] MEDS: MEROPENEM 1 GM VIAL IVP SCH ×3 (01:12→16:56)
[2020-11-15] MEDS: CISATRACURIUM BESYLATE 100 MG in 0.9%NACL 100ML 100 ML IV SCH ×2 (01:21→19:10)
[2020-11-15] MEDS: PROPOFOL 1000 MG/100 ML 100 ML IV PRN ×7 (01:24→20:23)
[2020-11-15] MEDS: PANTOPRAZOLE 40MG INJ 80 MG in 0.9%NACL 100ML 100 ML IVP SCH (01:25)
[2020-11-15] MEDS: INSULIN REGULAR, HUMAN 3ML 100 UNIT in 0.9%NACL 100ML 99 ML IV PRN ×2 (01:50)
[2020-11-15] MEDS: FENTANYL 2500MCG+NS 250ML 250 ML IV SCH (03:41)
[2020-11-15] MEDS: METOPROLOL TARTRATE 25 MG TAB PO SCH ×2 (04:33→16:29)
[2020-11-15] MEDS: VANCOMYCIN 1G/250ML KIT 250 ML IV SCH ×2 (05:08→16:53)
[2020-11-15 05:32] LABS: BASOPHILS % (AUTO) 0.2 % (0.0-5.0); HEMATOCRIT 35.2 % (42-54); LYMPHOCYTES % (AUTO) 7.1 % (21.0-51.0); MEAN CORPUSCULAR HEMOGLOBIN 28.3 pg (27.0-33.0); MEAN CORPUSCULAR HGB CONC 29.5 g/dL (32.0-36.0); MEAN CORPUSCULAR VOLUME 95.9 fL (79-99); MONOCYTES % (AUTO) 7.7 % (3.0-13.0); NEUTROPHILS % (AUTO) 83.1 % (40.0-77.0); PLATELET COUNT (AUTO) 174 K/uL (130-400); RED BLOOD CELL COUNT(AUTO) 3.67 MIL/uL (4.50-6.20); WHITE BLOOD COUNT (AUTO) 12.8 K/uL (4.8-10.8)
[2020-11-15 05:43] LABS: CREATININE 0.5 mg/dL (0.5-1.5); POTASSIUM 4.3 mmol/L (3.5-5.1)
[2020-11-15 06:37] LABS: CRP QUANTITATIVE 77.5 mg/L (0.00-9.0)
[2020-11-15] MEDS: DIPYRIDAMOLE 25 MG TABLET PO SCH (07:59)
[2020-11-15] MEDS: FAMOTIDINE 20MG TAB NG SCH (07:59)
[2020-11-15 09:02] LABS: ABG BASE EXCESS 9.9 mmol/L (-2.0-3.0); ABG HCO3 39.4 mmol/L (21.0-28.0); ABG OXYGEN SATURATION 94.1 % (95.0-99.0); ABG PCO2 76 mmHg (35-48)
[2020-11-15] MEDS: DEXMEDETOMIDINE HCL 400 MCG in 0.9%NACL 100ML 100 ML IV PRN ×4 (09:55→21:26)
[2020-11-15] MEDS: DEXAMETHASONE SOD PHOSPHATE 4 MG/ML 1ML VIAL IVP SCH (16:52)
[2020-11-15] MEDS: MICAFUNGIN 100MG+NS 100ML 100 ML IV SCH (20:22)
[2020-11-16] VITALS (37 sets, daily range): BP systolic 92–190; BP diastolic 43–115
[2020-11-16] MEDS: DEXMEDETOMIDINE HCL 400 MCG in 0.9%NACL 100ML 100 ML IV PRN ×5 (02:14→21:34)
[2020-11-16] MEDS: MEROPENEM 1 GM VIAL IVP SCH ×3 (03:12→17:37)
[2020-11-16] MEDS: FENTANYL 2500MCG+NS 250ML 250 ML IV SCH (03:22)
[2020-11-16 04:21] LABS: BASOPHILS % (AUTO) 0.1 % (0.0-5.0); EOSINOPHILS % (AUTO) 0.1 % (0.0-8.0); HEMATOCRIT 29.5 % (42-54); LYMPHOCYTES % (AUTO) 6.2 % (21.0-51.0); MEAN CORPUSCULAR HEMOGLOBIN 28.5 pg (27.0-33.0); MEAN CORPUSCULAR HGB CONC 30.2 g/dL (32.0-36.0); MEAN CORPUSCULAR VOLUME 94.6 fL (79-99); MONOCYTES % (AUTO) 5.6 % (3.0-13.0); NEUTROPHILS % (AUTO) 87.3 % (40.0-77.0); PLATELET COUNT (AUTO) 212 K/uL (130-400); RED BLOOD CELL COUNT(AUTO) 3.12 MIL/uL (4.50-6.20)
[2020-11-16] MEDS: METOPROLOL TARTRATE 25 MG TAB PO SCH (04:26)
[2020-11-16] MEDS: VANCOMYCIN 1G/250ML KIT 250 ML IV SCH (04:26)
[2020-11-16 04:31] LABS: CREATININE 0.5 mg/dL (0.5-1.5); POTASSIUM 4.3 mmol/L (3.5-5.1)
[2020-11-16] MEDS: PROPOFOL 1000 MG/100 ML 100 ML IV PRN ×5 (04:38→20:39)
[2020-11-16 06:33] LABS: CRP QUANTITATIVE 126.6 mg/L (0.00-9.0)
[2020-11-16 08:58] LABS: ABG BASE EXCESS 9.5 mmol/L (-2.0-3.0); ABG HCO3 37.4 mmol/L (21.0-28.0); ABG OXYGEN SATURATION 81.8 % (95.0-99.0); ABG PCO2 65 mmHg (35-48)
[2020-11-16] MEDS ORDERED: PANTOPRAZOLE 40 MG/VIAL IVP SCH ×2 (09:00)
[2020-11-16] MEDS ORDERED: PHARMACY COMMUNICATION MISC SCH ×2 (09:30)
[2020-11-16] MEDS: ENOXAPARIN SODIUM 40 MG/0.4 ML SYRINGE SQ SCH (09:48)
[2020-11-16] MEDS: DIPYRIDAMOLE 25 MG TABLET PO SCH (09:49)
[2020-11-16] MEDS: DEXAMETHASONE SOD PHOSPHATE 4 MG/ML 1ML VIAL IVP SCH (09:49)
[2020-11-16] MEDS: FUROSEMIDE 20MG VIAL IV SCH ×2 (11:09→17:37)
[2020-11-16] MEDS: ZINC SULFATE 220 CAPSULE PO SCH ×2 (11:09→20:36)
[2020-11-16] MEDS: THIAMINE HCL 100 MG TABLET PO SCH ×2 (11:10→20:36)
[2020-11-16 13:35] LABS: BASOPHILS % (AUTO) 0.2 % (0.0-5.0); EOSINOPHILS % (AUTO) 0.3 % (0.0-8.0); HEMATOCRIT 32.2 % (42-54); LYMPHOCYTES % (AUTO) 3.4 % (21.0-51.0); MEAN CORPUSCULAR HEMOGLOBIN 29.2 pg (27.0-33.0); MEAN CORPUSCULAR HGB CONC 31.4 g/dL (32.0-36.0); MEAN CORPUSCULAR VOLUME 93.1 fL (79-99); MONOCYTES % (AUTO) 2.7 % (3.0-13.0); NEUTROPHILS % (AUTO) 92.4 % (40.0-77.0); PLATELET COUNT (AUTO) 244 K/uL (130-400); RED BLOOD CELL COUNT(AUTO) 3.46 MIL/uL (4.50-6.20); RED CELL DISTRIBUTION WIDTH 14.8 % (11.0-15.5)
[2020-11-16] MEDS ORDERED: KETAMINE IV SCH (16:15)
[2020-11-16] MEDS ORDERED: NACL 0.9% IV SCH (16:15)
[2020-11-16] MEDS ORDERED: CISATRACURIUM BESYLATE IV SCH (16:30)
[2020-11-16] MEDS ORDERED: [UNRECOGNIZED DRUG - OTHER] IV SCH (16:30)
[2020-11-16] MEDS ORDERED: [UNRECOGNIZED DRUG - OTHER] IV SCH (16:30)
[2020-11-16] MEDS ORDERED: VASOPRESSIN IV SCH (16:30)
[2020-11-16] MEDS ORDERED: COMPOUND IV REFRIGERATED 1 EACH IVSOLN MISC PRN (18:30)
[2020-11-16] MEDS: MICAFUNGIN 100MG+NS 100ML 100 ML IV SCH (20:35)
[2020-11-16] MEDS: VANCOMYCIN 1G 1.5 GM in 0.9% NACL 250ML 250 ML IV SCH (20:35)
[2020-11-17] VITALS (51 sets, daily range): BP systolic 92–182; BP diastolic 46–98
[2020-11-17] MEDS: PROPOFOL 1000 MG/100 ML 100 ML IV PRN ×6 (00:12→21:33)
[2020-11-17] MEDS: INSULIN REGULAR, HUMAN 3ML 100 UNIT in 0.9%NACL 100ML 99 ML IV PRN ×2 (03:04)
[2020-11-17] MEDS: VANCOMYCIN 1G 1.5 GM in 0.9% NACL 250ML 250 ML IV SCH ×2 (03:07→13:02)
[2020-11-17] MEDS: FUROSEMIDE 20MG VIAL IV SCH (03:08)
[2020-11-17] MEDS: MEROPENEM 1 GM VIAL IVP SCH ×3 (03:08→17:43)
[2020-11-17 07:13] LABS: ABG OXYGEN SATURATION 87.5 % (95.0-99.0); ABG PCO2 61 mmHg (35-48)
[2020-11-17 07:42] LABS: BASOPHILS % (AUTO) 0.2 % (0.0-5.0); EOSINOPHILS % (AUTO) 2.4 % (0.0-8.0); HEMATOCRIT 32.7 % (42-54); LYMPHOCYTES % (AUTO) 12.5 % (21.0-51.0); MEAN CORPUSCULAR HEMOGLOBIN 29.1 pg (27.0-33.0); MEAN CORPUSCULAR HGB CONC 30.6 g/dL (32.0-36.0); MEAN CORPUSCULAR VOLUME 95.1 fL (79-99); MONOCYTES % (AUTO) 6.2 % (3.0-13.0); NEUTROPHILS % (AUTO) 77.4 % (40.0-77.0); NUCLEATED RED BLOOD CELLS 0.3 % (0.0-0.19); PLATELET COUNT (AUTO) 266 K/uL (130-400); RED BLOOD CELL COUNT(AUTO) 3.44 MIL/uL (4.50-6.20); RED CELL DISTRIBUTION WIDTH 15.5 % (11.0-15.5); WHITE BLOOD COUNT (AUTO) 12.8 K/uL (4.8-10.8)
[2020-11-17 07:50] LABS: CREATININE 0.5 mg/dL (0.5-1.5); POTASSIUM 3.5 mmol/L (3.5-5.1)
[2020-11-17] MEDS: ZINC SULFATE 220 CAPSULE PO SCH ×2 (08:35→21:35)
[2020-11-17] MEDS: DIPYRIDAMOLE 25 MG TABLET PO SCH (08:35)
[2020-11-17] MEDS: PRENATAL VITAMIN RX TABLET PO SCH (08:36)
[2020-11-17] MEDS: DEXAMETHASONE SOD PHOSPHATE 4 MG/ML 1ML VIAL IVP SCH (08:36)
[2020-11-17] MEDS: THIAMINE HCL 100 MG TABLET PO SCH ×2 (08:36→21:34)
[2020-11-17] MEDS: ENOXAPARIN SODIUM 40 MG/0.4 ML SYRINGE SQ SCH (08:38)
[2020-11-17] MEDS ORDERED: KETAMINE IV SCH (08:54)
[2020-11-17] MEDS ORDERED: NACL 0.9% IV SCH (08:54)
[2020-11-17] MEDS ORDERED: ZINC SULFATE 220 CAPSULE PO SCH (09:00)
[2020-11-17] MEDS ORDERED: COMPOUND PO REF 1 EA BTL MISC PRN (09:00)
[2020-11-17] MEDS ORDERED: THIAMINE HCL 100 MG TABLET PO SCH (09:00)
[2020-11-17] MEDS ORDERED: ERGOCALCIFEROL (VITAMIN D2) 50,000 UNIT CAPSULE PO SCH (09:00)
[2020-11-17] MEDS: SODIUM BICARB NG SCH ×2 (09:26)
[2020-11-17] MEDS: LANSOPRAZOLE NG SCH ×2 (09:26)
[2020-11-17] MEDS: LANSOPRAZOLE 15 MG SOLU TAB PEG SCH (09:29)
[2020-11-17] MEDS: DEXMEDETOMIDINE HCL 400 MCG in 0.9%NACL 100ML 100 ML IV PRN ×3 (10:24→19:06)
[2020-11-17 10:28] LABS: CRP QUANTITATIVE 86.5 mg/L (0.00-9.0)
[2020-11-17] MEDS: FENTANYL 2500MCG+NS 250ML 250 ML IV SCH (16:41)
[2020-11-17] MEDS: MICAFUNGIN 100MG+NS 100ML 100 ML IV SCH (21:33)
[2020-11-18] VITALS (65 sets, daily range): BP systolic 84–175; BP diastolic 44–92
[2020-11-18] MEDS: INSULIN REGULAR, HUMAN 3ML 100 UNIT in 0.9%NACL 100ML 99 ML IV PRN ×4 (01:11→21:00)
[2020-11-18] MEDS: PROPOFOL 1000 MG/100 ML 100 ML IV PRN ×6 (01:13→17:00)
[2020-11-18] MEDS: MEROPENEM 1 GM VIAL IVP SCH (02:40)
[2020-11-18 04:25] LABS: BASOPHILS % (AUTO) 0.3 % (0.0-5.0); EOSINOPHILS % (AUTO) 2.9 % (0.0-8.0); HEMATOCRIT 33.2 % (42-54); LYMPHOCYTES % (AUTO) 13.1 % (21.0-51.0); MEAN CORPUSCULAR HEMOGLOBIN 28.8 pg (27.0-33.0); MEAN CORPUSCULAR HGB CONC 30.1 g/dL (32.0-36.0); MEAN CORPUSCULAR VOLUME 95.7 fL (79-99); MONOCYTES % (AUTO) 6.3 % (3.0-13.0); NEUTROPHILS % (AUTO) 75.6 % (40.0-77.0); NUCLEATED RED BLOOD CELLS 0.3 % (0.0-0.19); PLATELET COUNT (AUTO) 200 K/uL (130-400); RED BLOOD CELL COUNT(AUTO) 3.47 MIL/uL (4.50-6.20); RED CELL DISTRIBUTION WIDTH 15.7 % (11.0-15.5); WHITE BLOOD COUNT (AUTO) 9.3 K/uL (4.8-10.8)
[2020-11-18 04:40] LABS: ALBUMIN 1.9 g/dL (3.5-5.0); BILIRUBIN,TOTAL 0.4 mg/dL (0.2-1.0); CREATININE 0.4 mg/dL (0.5-1.5); CRP QUANTITATIVE 107.2 mg/L (0.00-9.0); POTASSIUM 3.6 mmol/L (3.5-5.1); TOTAL PROTEIN, SERUM 5.8 g/dL (6.0-8.3)
[2020-11-18] MEDS: ZINC SULFATE 220 CAPSULE PO SCH ×2 (08:25→21:00)
[2020-11-18] MEDS: DIPYRIDAMOLE 25 MG TABLET PO SCH (08:25)
[2020-11-18] MEDS: ENOXAPARIN SODIUM 40 MG/0.4 ML SYRINGE SQ SCH (08:25)
[2020-11-18] MEDS: PRENATAL VITAMIN RX TABLET PO SCH (08:25)
[2020-11-18] MEDS: THIAMINE HCL 100 MG TABLET PO SCH ×2 (08:26→21:01)
[2020-11-18] MEDS: DEXAMETHASONE SOD PHOSPHATE 4 MG/ML 1ML VIAL IVP SCH (08:26)
[2020-11-18 08:28] LABS: ABG BASE EXCESS 10.8 mmol/L (-2.0-3.0); ABG HCO3 38.6 mmol/L (21.0-28.0); ABG OXYGEN SATURATION 89.4 % (95.0-99.0); ABG PCO2 64 mmHg (35-48)
[2020-11-18] MEDS: CA 600MG+VIT D 400 UNIT TAB 1 TAB TABLET PO SCH (08:34)
[2020-11-18] MEDS: LANSOPRAZOLE 15 MG SOLU TAB PEG SCH (08:42)
[2020-11-18] MEDS: SODIUM BICARB NG SCH ×2 (09:00)
[2020-11-18] MEDS: LANSOPRAZOLE NG SCH ×2 (09:00)
[2020-11-18] MEDS: DEXMEDETOMIDINE HCL 400 MCG in 0.9%NACL 100ML 100 ML IV PRN ×3 (10:00→20:58)
[2020-11-18] MEDS: FUROSEMIDE 20MG VIAL IV SCH (21:00)
[2020-11-18] MEDS: MICAFUNGIN 100MG+NS 100ML 100 ML IV SCH (21:01)
[2020-11-19] VITALS (75 sets, daily range): BP systolic 90–176; BP diastolic 47–103
[2020-11-19] MEDS: DEXMEDETOMIDINE HCL 400 MCG in 0.9%NACL 100ML 100 ML IV PRN ×4 (00:29→20:12)
[2020-11-19] MEDS: PROPOFOL 1000 MG/100 ML 100 ML IV PRN ×3 (05:06→17:00)
[2020-11-19 05:18] LABS: BASOPHILS % (AUTO) 0.5 % (0.0-5.0); EOSINOPHILS % (AUTO) 2.1 % (0.0-8.0); HEMATOCRIT 33.1 % (42-54); LYMPHOCYTES % (AUTO) 14.1 % (21.0-51.0); MEAN CORPUSCULAR HEMOGLOBIN 29.1 pg (27.0-33.0); MEAN CORPUSCULAR HGB CONC 30.8 g/dL (32.0-36.0); MEAN CORPUSCULAR VOLUME 94.6 fL (79-99); MONOCYTES % (AUTO) 7.2 % (3.0-13.0); NEUTROPHILS % (AUTO) 74.5 % (40.0-77.0); NUCLEATED RED BLOOD CELLS 0.5 % (0.0-0.19); PLATELET COUNT (AUTO) 338 K/uL (130-400); WHITE BLOOD COUNT (AUTO) 8.7 K/uL (4.8-10.8)
[2020-11-19] MEDS: FUROSEMIDE 20MG VIAL IV SCH ×3 (05:26→20:08)
[2020-11-19 05:28] LABS: CREATININE 0.4 mg/dL (0.5-1.5); CRP QUANTITATIVE 115.2 mg/L (0.00-9.0); POTASSIUM 3.4 mmol/L (3.5-5.1)
[2020-11-19 07:02] LABS: ABG BASE EXCESS 17.3 mmol/L (-2.0-3.0); ABG HCO3 44.8 mmol/L (21.0-28.0); ABG OXYGEN SATURATION 90.5 % (95.0-99.0); ABG PCO2 64 mmHg (35-48)
[2020-11-19 09:46] LABS: MAGNESIUM 2.1 mg/dL (1.80-2.40)
[2020-11-19] MEDS: DEXAMETHASONE SOD PHOSPHATE 4 MG/ML 1ML VIAL IVP SCH (09:49)
[2020-11-19] MEDS: LANSOPRAZOLE 15 MG SOLU TAB PEG SCH (09:50)
[2020-11-19] MEDS: DIPYRIDAMOLE 25 MG TABLET PO SCH (09:50)
[2020-11-19] MEDS: PRENATAL VITAMIN RX TABLET PO SCH (09:50)
[2020-11-19] MEDS: CA 600MG+VIT D 400 UNIT TAB 1 TAB TABLET PO SCH (09:50)
[2020-11-19] MEDS: THIAMINE HCL 100 MG TABLET PO SCH ×2 (09:51→20:08)
[2020-11-19] MEDS: POTASSIUM CHLORIDE 20MEQ/100ML 100 ML IV PRN (09:51)
[2020-11-19] MEDS: ZINC SULFATE 220 CAPSULE PO SCH ×2 (09:51→20:08)
[2020-11-19] MEDS: ENOXAPARIN SODIUM 40 MG/0.4 ML SYRINGE SQ SCH (09:53)
[2020-11-19] MEDS: FENTANYL 2500MCG+NS 250ML 250 ML IV SCH (09:55)
[2020-11-19] MEDS: SODIUM BICARB NG SCH ×2 (09:57)
[2020-11-19] MEDS: LANSOPRAZOLE NG SCH ×2 (09:57)
[2020-11-19] MEDS ORDERED: PHARMACY COMMUNICATION MISC SCH (13:30)
[2020-11-19] MEDS: BARICITINIB (EUA) 2 MG TABLET PO SCH (16:00)
[2020-11-19] MEDS: INSULIN REGULAR, HUMAN 3ML 100 UNIT in 0.9%NACL 100ML 99 ML IV PRN ×2 (18:34)
[2020-11-19] MEDS: MICAFUNGIN 100MG+NS 100ML 100 ML IV SCH (20:09)
[2020-11-19] MEDS: BALSAM PERU/CASTOR OIL 60 GM TUBE TP SCH (20:10)
[2020-11-20] VITALS (70 sets, daily range): BP systolic 79–201; BP diastolic 44–102
[2020-11-20] MEDS: DEXMEDETOMIDINE HCL 400 MCG in 0.9%NACL 100ML 100 ML IV PRN ×4 (00:56→16:44)
[2020-11-20] MEDS: PROPOFOL 1000 MG/100 ML 100 ML IV PRN ×6 (01:54→21:12)
[2020-11-20 04:50] LABS: BASOPHILS % (AUTO) 0.3 % (0.0-5.0); EOSINOPHILS % (AUTO) 2.5 % (0.0-8.0); HEMATOCRIT 30.8 % (42-54); LYMPHOCYTES % (AUTO) 13.6 % (21.0-51.0); MEAN CORPUSCULAR HEMOGLOBIN 28.5 pg (27.0-33.0); MEAN CORPUSCULAR HGB CONC 29.9 g/dL (32.0-36.0); MEAN CORPUSCULAR VOLUME 95.4 fL (79-99); MONOCYTES % (AUTO) 5.8 % (3.0-13.0); NEUTROPHILS % (AUTO) 76.8 % (40.0-77.0); NUCLEATED RED BLOOD CELLS 0.7 % (0.0-0.19); PLATELET COUNT (AUTO) 376 K/uL (130-400); RED BLOOD CELL COUNT(AUTO) 3.23 MIL/uL (4.50-6.20); RED CELL DISTRIBUTION WIDTH 16.8 % (11.0-15.5)
[2020-11-20 05:08] LABS: CREATININE 0.4 mg/dL (0.5-1.5); CRP QUANTITATIVE 136.1 mg/L (0.00-9.0); POTASSIUM 3.5 mmol/L (3.5-5.1)
[2020-11-20] MEDS: FUROSEMIDE 20MG VIAL IV SCH ×3 (05:15→21:07)
[2020-11-20] MEDS: POTASSIUM CHLORIDE 20MEQ/100ML 100 ML IV PRN (05:43)
[2020-11-20 06:23] LABS: ABG BASE EXCESS 16.8 mmol/L (-2.0-3.0); ABG HCO3 45.1 mmol/L (21.0-28.0); ABG OXYGEN SATURATION 92.4 % (95.0-99.0); ABG PCO2 69 mmHg (35-48)
[2020-11-20] MEDS: DIPYRIDAMOLE 25 MG TABLET PO SCH (09:09)
[2020-11-20] MEDS: LANSOPRAZOLE 15 MG SOLU TAB PEG SCH (09:09)
[2020-11-20] MEDS: BARICITINIB (EUA) 2 MG TABLET PO SCH (09:09)
[2020-11-20] MEDS: CA 600MG+VIT D 400 UNIT TAB 1 TAB TABLET PO SCH (09:09)
[2020-11-20] MEDS: PRENATAL VITAMIN RX TABLET PO SCH (09:10)
[2020-11-20] MEDS: SOLU-MEDROL 125MG VIAL IVP SCH (09:10)
[2020-11-20] MEDS: ZINC SULFATE 220 CAPSULE PO SCH ×2 (09:10→21:08)
[2020-11-20] MEDS: THIAMINE HCL 100 MG TABLET PO SCH ×2 (09:10→21:08)
[2020-11-20] MEDS: BALSAM PERU/CASTOR OIL 60 GM TUBE TP SCH ×3 (09:11→21:00)
[2020-11-20] MEDS: SODIUM BICARB NG SCH ×2 (09:11)
[2020-11-20] MEDS: LANSOPRAZOLE NG SCH ×2 (09:11)
[2020-11-20] MEDS: INSULIN REGULAR, HUMAN 3ML 100 UNIT in 0.9%NACL 100ML 99 ML IV PRN ×4 (09:14→16:45)
[2020-11-20] MEDS: MICAFUNGIN 100MG+NS 100ML 100 ML IV SCH (22:16)
[2020-11-20] MEDS ORDERED: 0.9% NACL 500ML IV.SOLN 500 ML IV ONE (22:34)
[2020-11-21] VITALS (76 sets, daily range): BP systolic 87–212; BP diastolic 49–92
[2020-11-21] MEDS ORDERED: FENTANYL 2500MCG+NS 250ML 250 ML IV ONE (01:36)
[2020-11-21] MEDS: DEXMEDETOMIDINE HCL 400 MCG in 0.9%NACL 100ML 100 ML IV PRN ×4 (02:09→17:34)
[2020-11-21] MEDS: FUROSEMIDE 20MG VIAL IV SCH ×2 (04:49→12:01)
[2020-11-21 05:05] LABS: ABG BASE EXCESS 18.9 mmol/L (-2.0-3.0); ABG HCO3 45.3 mmol/L (21.0-28.0); ABG OXYGEN SATURATION 92.2 % (95.0-99.0); ABG PCO2 57 mmHg (35-48)
[2020-11-21 05:24] LABS: BASOPHILS % (AUTO) 0.1 % (0.0-5.0); EOSINOPHILS % (AUTO) 2.1 % (0.0-8.0); HEMATOCRIT 27.2 % (42-54); LYMPHOCYTES % (AUTO) 22.2 % (21.0-51.0); MEAN CORPUSCULAR HEMOGLOBIN 29.2 pg (27.0-33.0); MEAN CORPUSCULAR HGB CONC 30.9 g/dL (32.0-36.0); MEAN CORPUSCULAR VOLUME 94.4 fL (79-99); MONOCYTES % (AUTO) 4.3 % (3.0-13.0); NEUTROPHILS % (AUTO) 70.2 % (40.0-77.0); NUCLEATED RED BLOOD CELLS 0.2 % (0.0-0.19); PLATELET COUNT (AUTO) 356 K/uL (130-400); RED BLOOD CELL COUNT(AUTO) 2.88 MIL/uL (4.50-6.20); RED CELL DISTRIBUTION WIDTH 16.2 % (11.0-15.5); WHITE BLOOD COUNT (AUTO) 8.1 K/uL (4.8-10.8)
[2020-11-21 05:26] LABS: CRP QUANTITATIVE 129.5 mg/L (0.00-9.0)
[2020-11-21] MEDS: PROPOFOL 1000 MG/100 ML 100 ML IV PRN ×5 (05:29→21:33)
[2020-11-21 05:50] LABS: CREATININE 0.4 mg/dL (0.5-1.5); POTASSIUM 3.7 mmol/L (3.5-5.1)
[2020-11-21] MEDS: POTASSIUM CHLORIDE 20MEQ/100ML 100 ML IV PRN (07:09)
[2020-11-21] MEDS: DIPYRIDAMOLE 25 MG TABLET PO SCH (09:48)
[2020-11-21] MEDS: LANSOPRAZOLE 15 MG SOLU TAB PEG SCH (09:48)
[2020-11-21] MEDS: SOLU-MEDROL 125MG VIAL IVP SCH (09:48)
[2020-11-21] MEDS: BARICITINIB (EUA) 2 MG TABLET PO SCH (09:49)
[2020-11-21] MEDS: BALSAM PERU/CASTOR OIL 60 GM TUBE TP SCH ×2 (09:49→14:00)
[2020-11-21] MEDS: PRENATAL VITAMIN RX TABLET PO SCH (09:49)
[2020-11-21] MEDS: CA 600MG+VIT D 400 UNIT TAB 1 TAB TABLET PO SCH (09:49)
[2020-11-21] MEDS: THIAMINE HCL 100 MG TABLET PO SCH ×2 (09:50→21:58)
[2020-11-21] MEDS: SODIUM BICARB NG SCH ×2 (09:50)
[2020-11-21] MEDS: ZINC SULFATE 220 CAPSULE PO SCH ×2 (09:50→21:59)
[2020-11-21] MEDS: LANSOPRAZOLE NG SCH ×2 (09:50)
[2020-11-21] MEDS: INSULIN REGULAR, HUMAN 3ML 100 UNIT in 0.9%NACL 100ML 99 ML IV PRN ×2 (09:53)
[2020-11-21] MEDS: SUCRALFATE 1 GM TABLET NG SCH ×2 (13:00→19:05)
[2020-11-21] MEDS: MICAFUNGIN 100MG+NS 100ML 100 ML IV SCH (21:56)
[2020-11-21] MEDS: FUROSEMIDE 40MG VIAL IV SCH (21:57)
[2020-11-22] VITALS (72 sets, daily range): BP systolic 80–199; BP diastolic 41–91
[2020-11-22] MEDS: PROPOFOL 1000 MG/100 ML 100 ML IV PRN ×6 (01:25→22:36)
[2020-11-22] MEDS: SUCRALFATE 1 GM TABLET NG SCH ×4 (01:26→21:41)
[2020-11-22] MEDS: DEXMEDETOMIDINE HCL 400 MCG in 0.9%NACL 100ML 100 ML IV PRN ×7 (01:55→22:37)
[2020-11-22] MEDS ORDERED: FENTANYL 2500MCG+NS 250ML 250 ML IV ONE (04:32)
[2020-11-22 04:59] LABS: ABG BASE EXCESS 12.5 mmol/L (-2.0-3.0); ABG HCO3 43.8 mmol/L (21.0-28.0); ABG OXYGEN SATURATION 86.2 % (95.0-99.0); ABG PCO2 93 mmHg (35-48)
[2020-11-22 05:09] LABS: HEMATOCRIT 32.9 % (42-54); MEAN CORPUSCULAR HEMOGLOBIN 28.8 pg (27.0-33.0); MEAN CORPUSCULAR HGB CONC 29.8 g/dL (32.0-36.0); MEAN CORPUSCULAR VOLUME 96.8 fL (79-99); NUCLEATED RED BLOOD CELLS 0.1 % (0.0-0.19); PLATELET COUNT (AUTO) 422 K/uL (130-400); WHITE BLOOD COUNT (AUTO) 15.2 K/uL (4.8-10.8)
[2020-11-22 05:23] LABS: CREATININE 0.5 mg/dL (0.5-1.5); MAGNESIUM 1.8 mg/dL (1.80-2.40)
[2020-11-22] MEDS: MAGNESIUM 2GM PREMIX 50ML 50 ML IV SCH (06:41)
[2020-11-22] MEDS: BARICITINIB (EUA) 2 MG TABLET PO SCH (08:55)
[2020-11-22] MEDS: DIPYRIDAMOLE 25 MG TABLET PO SCH (08:56)
[2020-11-22] MEDS: CA 600MG+VIT D 400 UNIT TAB 1 TAB TABLET PO SCH (08:56)
[2020-11-22] MEDS: THIAMINE HCL 100 MG TABLET PO SCH ×2 (08:56→21:37)
[2020-11-22] MEDS: FUROSEMIDE 40MG VIAL IV SCH ×2 (08:57→21:39)
[2020-11-22] MEDS: SOLU-MEDROL 125MG VIAL IVP SCH (08:57)
[2020-11-22] MEDS: BALSAM PERU/CASTOR OIL 60 GM TUBE TP SCH ×3 (08:58→21:42)
[2020-11-22] MEDS: PRENATAL VITAMIN RX TABLET PO SCH (08:58)
[2020-11-22] MEDS: LANSOPRAZOLE 15 MG SOLU TAB PEG SCH (08:58)
[2020-11-22] MEDS: ZINC SULFATE 220 CAPSULE PO SCH ×2 (08:59→21:37)
[2020-11-22] MEDS: SODIUM BICARB NG SCH ×2 (09:00)
[2020-11-22] MEDS: LANSOPRAZOLE NG SCH ×2 (09:00)
[2020-11-22] MEDS: INSULIN REGULAR, HUMAN 3ML 100 UNIT in 0.9%NACL 100ML 99 ML IV PRN ×2 (10:30)
[2020-11-22] MEDS: MIDODRINE HCL 5 MG TABLET GT SCH ×3 (10:30→21:37)
[2020-11-22 10:58] LABS: ABG BASE EXCESS 17.5 mmol/L (-2.0-3.0); ABG HCO3 46.2 mmol/L (21.0-28.0); ABG OXYGEN SATURATION 93.7 % (95.0-99.0); ABG PCO2 72 mmHg (35-48)
[2020-11-22] MEDS: PANTOPRAZOLE 40 MG/VIAL IVP SCH ×2 (12:37→21:38)
[2020-11-22] MEDS ORDERED: 0.9%NACL 1000ML 1,000 ML IV ONE (13:42)
[2020-11-22 15:15] LABS: APPEARANCE,URINE Clear (CLEAR); BILIRUBIN,URINE Negative (NEGATIVE); COLOR,URINE Yellow (YELLOW); GLUCOSE, URINE (UA) 500 mg/dL (NEGATIVE); KETONES,URINE 15 mg/dL (NEGATIVE); LEUKOCYTE ESTERASE ,URINE Small (NEGATIVE); NITRATE,URINE Negative (NEGATIVE); OCCULT BLOOD,URINE Negative (NEGATIVE); PROTEIN,URINE Negative (NEGATIVE)
[2020-11-22 15:23] LABS: BACTERIA,URINE Few /HPF (None Seen); MUCUS,URINE Few LPF (None Seen); SQUAMOUS EPITHELIAL CELL,UR 0-2 /HPF (0-2)
[2020-11-22 15:50] LABS: ABG BASE EXCESS 12.1 mmol/L (-2.0-3.0); ABG HCO3 40.8 mmol/L (21.0-28.0); ABG OXYGEN SATURATION 95.2 % (95.0-99.0); ABG PCO2 80 mmHg (35-48)
[2020-11-22] MEDS ORDERED: MIDAZOLAM 100MG-0.9% NS 100ML 100 ML IV ONE (23:37)
[2020-11-23] VITALS (77 sets, daily range): BP systolic 93–166; BP diastolic 41–98
[2020-11-23] MEDS: SUCRALFATE 1 GM TABLET NG SCH ×4 (00:56→18:22)
[2020-11-23 04:59] LABS: ABG BASE EXCESS 11.6 mmol/L (-2.0-3.0); ABG OXYGEN SATURATION 96.7 % (95.0-99.0); ABG PCO2 77 mmHg (35-48)
[2020-11-23 05:15] LABS: BASOPHILS % (AUTO) 0.2 % (0.0-5.0); EOSINOPHILS % (AUTO) 0.9 % (0.0-8.0); HEMATOCRIT 30.6 % (42-54); LYMPHOCYTES % (AUTO) 9.6 % (21.0-51.0); MEAN CORPUSCULAR HEMOGLOBIN 29.4 pg (27.0-33.0); MEAN CORPUSCULAR HGB CONC 30.7 g/dL (32.0-36.0); MEAN CORPUSCULAR VOLUME 95.6 fL (79-99); MONOCYTES % (AUTO) 4.4 % (3.0-13.0); NEUTROPHILS % (AUTO) 84.1 % (40.0-77.0); PLATELET COUNT (AUTO) 426 K/uL (130-400); RED CELL DISTRIBUTION WIDTH 15.9 % (11.0-15.5); WHITE BLOOD COUNT (AUTO) 16.4 K/uL (4.8-10.8)
[2020-11-23 05:18] LABS: CREATININE 0.5 mg/dL (0.5-1.5); POTASSIUM 3.5 mmol/L (3.5-5.1)
[2020-11-23] MEDS: PROPOFOL 1000 MG/100 ML 100 ML IV PRN ×6 (05:20→22:58)
[2020-11-23] MEDS: FUROSEMIDE 40MG VIAL IV SCH ×3 (05:22→22:50)
[2020-11-23] MEDS: POTASSIUM CHLORIDE 20MEQ/100ML 100 ML IV PRN (06:41)
[2020-11-23] MEDS: MIDAZOLAM HCL 50 MG in 0.9%NACL 50ML 50 ML IV SCH (06:42)
[2020-11-23] MEDS: INSULIN REGULAR, HUMAN 3ML 100 UNIT in 0.9%NACL 100ML 99 ML IV PRN ×4 (07:09→19:50)
[2020-11-23] MEDS ORDERED: FENTANYL 2500MCG+NS 250ML 250 ML IV ONE (08:57)
[2020-11-23] MEDS ORDERED: FENTANYL CITRATE PF 0.05 MG/ML 1,000 MCG in 0.9%NACL 100ML 100 ML IVPB PRN (09:15)
[2020-11-23] MEDS: PANTOPRAZOLE 40 MG/VIAL IVP SCH ×2 (09:24→22:49)
[2020-11-23] MEDS: MIDODRINE HCL 5 MG TABLET GT SCH ×3 (09:24→22:49)
[2020-11-23] MEDS: CA 600MG+VIT D 400 UNIT TAB 1 TAB TABLET PO SCH (09:24)
[2020-11-23] MEDS: SOLU-MEDROL 125MG VIAL IVP SCH (09:24)
[2020-11-23] MEDS: LANSOPRAZOLE NG SCH ×2 (09:25)
[2020-11-23] MEDS: BALSAM PERU/CASTOR OIL 60 GM TUBE TP SCH ×3 (09:25→22:50)
[2020-11-23] MEDS: SODIUM BICARB NG SCH ×2 (09:25)
[2020-11-23] MEDS: PRENATAL VITAMIN RX TABLET PO SCH (09:25)
[2020-11-23] MEDS: THIAMINE HCL 100 MG TABLET PO SCH ×2 (09:25→22:50)
[2020-11-23] MEDS: BARICITINIB (EUA) 2 MG TABLET PO SCH (09:25)
[2020-11-23] MEDS: ZINC SULFATE 220 CAPSULE PO SCH ×2 (09:26→22:50)
[2020-11-23 17:16] LABS: ALBUMIN 1.9 g/dL (3.5-5.0); BILIRUBIN,DIRECT 0.2 mg/dL (0.0-0.3); BILIRUBIN,TOTAL 0.3 mg/dL (0.2-1.0); MAGNESIUM 2.3 mg/dL (1.80-2.40); POTASSIUM 4.3 mmol/L (3.5-5.1); TOTAL PROTEIN, SERUM 6.1 g/dL (6.0-8.3)
[2020-11-24] VITALS (82 sets, daily range): BP systolic 96–168; BP diastolic 52–108
[2020-11-24] MEDS: SUCRALFATE 1 GM TABLET NG SCH ×4 (01:00→18:51)
[2020-11-24] MEDS: PROPOFOL 1000 MG/100 ML 100 ML IV PRN ×5 (03:18→18:50)
[2020-11-24 04:54] LABS: INR 0.96 (0.85-1.15); PROTHROMBIN TIME 10.5 SEC (9.6-11.6)
[2020-11-24 04:59] LABS: MAGNESIUM 1.9 mg/dL (1.80-2.40)
[2020-11-24] MEDS: FUROSEMIDE 40MG VIAL IV SCH ×3 (05:49→21:19)
[2020-11-24 06:14] LABS: BASOPHILS % (AUTO) 0.2 % (0.0-5.0); EOSINOPHILS % (AUTO) 0.6 % (0.0-8.0); HEMATOCRIT 31.1 % (42-54); LYMPHOCYTES % (AUTO) 9.2 % (21.0-51.0); MEAN CORPUSCULAR HGB CONC 30.2 g/dL (32.0-36.0); MONOCYTES % (AUTO) 4.7 % (3.0-13.0); NEUTROPHILS % (AUTO) 84.3 % (40.0-77.0); PLATELET COUNT (AUTO) 461 K/uL (130-400); RED BLOOD CELL COUNT(AUTO) 3.24 MIL/uL (4.50-6.20); WHITE BLOOD COUNT (AUTO) 21.1 K/uL (4.8-10.8)
[2020-11-24 06:22] LABS: CREATININE 0.5 mg/dL (0.5-1.5); POTASSIUM 3.6 mmol/L (3.5-5.1)
[2020-11-24] MEDS: POTASSIUM CHLORIDE 20MEQ/100ML 100 ML IV PRN (06:53)
[2020-11-24 07:17] LABS: ABG BASE EXCESS 13.8 mmol/L (-2.0-3.0); ABG HCO3 41.8 mmol/L (21.0-28.0); ABG OXYGEN SATURATION 94.5 % (95.0-99.0); ABG PCO2 66 mmHg (35-48)
[2020-11-24] MEDS: PANTOPRAZOLE 40 MG/VIAL IVP SCH ×2 (09:33→21:18)
[2020-11-24] MEDS: SOLU-MEDROL 125MG VIAL IVP SCH (09:33)
[2020-11-24] MEDS: BALSAM PERU/CASTOR OIL 60 GM TUBE TP SCH ×3 (09:33→21:19)
[2020-11-24] MEDS: LANSOPRAZOLE NG SCH ×2 (10:14)
[2020-11-24] MEDS: SODIUM BICARB NG SCH ×2 (10:14)
[2020-11-24] MEDS: MIDODRINE HCL 5 MG TABLET GT SCH ×3 (10:14→20:20)
[2020-11-24] MEDS: ZINC SULFATE 220 CAPSULE PO SCH ×2 (10:15→20:20)
[2020-11-24] MEDS: BARICITINIB (EUA) 2 MG TABLET PO SCH (10:15)
[2020-11-24] MEDS: CA 600MG+VIT D 400 UNIT TAB 1 TAB TABLET PO SCH (10:15)
[2020-11-24] MEDS: THIAMINE HCL 100 MG TABLET PO SCH ×2 (10:15→20:20)
[2020-11-24] MEDS: ZOSYN 3.375GM+NS 50ML 50 ML IV SCH ×2 (10:15→18:47)
[2020-11-24] MEDS: PRENATAL VITAMIN RX TABLET PO SCH (10:15)
[2020-11-24] MEDS ORDERED: FENTANYL 2500MCG+NS 250ML 250 ML IV ONE (12:59)
[2020-11-24] MEDS ORDERED: INSULIN HUMULIN R 100 UNIT/ML 3ML SQ SCH (17:00)
[2020-11-24] MEDS ORDERED: PHENYLEPHRINE HCL 10 MG/ML 1ML VIAL IV ONE (17:35)
[2020-11-24] MEDS ORDERED: ROCURONIUM 10MG/1ML SYR 10 MG/ML ML ONE (17:37)
[2020-11-24] MEDS: INSULIN REGULAR, HUMAN 3ML 100 UNIT in 0.9%NACL 100ML 99 ML IV PRN ×6 (21:18→23:24)
[2020-11-25] VITALS (66 sets, daily range): BP systolic 81–135; BP diastolic 45–90
[2020-11-25] MEDS: SUCRALFATE 1 GM TABLET NG SCH ×4 (01:00→18:11)
[2020-11-25] MEDS: PROPOFOL 1000 MG/100 ML 100 ML IV PRN ×6 (01:26→17:58)
[2020-11-25] MEDS: ZOSYN 3.375GM+NS 50ML 50 ML IV SCH ×3 (01:36→17:56)
[2020-11-25] MEDS: FUROSEMIDE 40MG VIAL IV SCH ×2 (06:14→13:35)
[2020-11-25] MEDS: INSULIN REGULAR, HUMAN 3ML 100 UNIT in 0.9%NACL 100ML 99 ML IV PRN ×10 (06:15→21:18)
[2020-11-25 06:33] LABS: BASOPHILS % (AUTO) 0.3 % (0.0-5.0); EOSINOPHILS % (AUTO) 0.1 % (0.0-8.0); HEMATOCRIT 29.4 % (42-54); LYMPHOCYTES % (AUTO) 7.8 % (21.0-51.0); MEAN CORPUSCULAR HEMOGLOBIN 29.5 pg (27.0-33.0); MEAN CORPUSCULAR HGB CONC 30.3 g/dL (32.0-36.0); MEAN CORPUSCULAR VOLUME 97.4 fL (79-99); MONOCYTES % (AUTO) 5.6 % (3.0-13.0); NEUTROPHILS % (AUTO) 84.6 % (40.0-77.0); PLATELET COUNT (AUTO) 468 K/uL (130-400); RED BLOOD CELL COUNT(AUTO) 3.02 MIL/uL (4.50-6.20); RED CELL DISTRIBUTION WIDTH 16.1 % (11.0-15.5); WHITE BLOOD COUNT (AUTO) 18.5 K/uL (4.8-10.8)
[2020-11-25 06:47] LABS: CREATININE 0.4 mg/dL (0.5-1.5); POTASSIUM 3.7 mmol/L (3.5-5.1)
[2020-11-25 07:02] LABS: CRP QUANTITATIVE 189.7 mg/L (0.00-9.0)
[2020-11-25 07:10] LABS: ABG BASE EXCESS 23.8 mmol/L (-2.0-3.0); ABG HCO3 52.5 mmol/L (21.0-28.0); ABG OXYGEN SATURATION 92.7 % (95.0-99.0); ABG PCO2 84 mmHg (35-48)
[2020-11-25] MEDS: BARICITINIB (EUA) 2 MG TABLET PO SCH (09:24)
[2020-11-25] MEDS: THIAMINE HCL 100 MG TABLET PO SCH ×2 (09:24→20:59)
[2020-11-25] MEDS: PRENATAL VITAMIN RX TABLET PO SCH (09:25)
[2020-11-25] MEDS: PANTOPRAZOLE 40 MG/VIAL IVP SCH ×2 (09:25→20:59)
[2020-11-25] MEDS: MIDODRINE HCL 5 MG TABLET GT SCH ×3 (09:25→20:59)
[2020-11-25] MEDS: SOLU-MEDROL 125MG VIAL IVP SCH (09:25)
[2020-11-25] MEDS: ZINC SULFATE 220 CAPSULE PO SCH ×2 (09:25→20:59)
[2020-11-25] MEDS: POTASSIUM CHLORIDE 20MEQ/100ML 100 ML IV PRN (09:26)
[2020-11-25] MEDS: BALSAM PERU/CASTOR OIL 60 GM TUBE TP SCH ×3 (09:27→21:00)
[2020-11-25] MEDS ORDERED: FENTANYL 2500MCG+NS 250ML 250 ML IV ONE (13:12)
[2020-11-25] MEDS ORDERED: PHARMACY COMMUNICATION MISC SCH ×2 (13:30)
[2020-11-25] MEDS: SODIUM BICARB NG SCH ×2 (13:34)
[2020-11-25] MEDS: LANSOPRAZOLE NG SCH ×2 (13:34)
[2020-11-25] MEDS: MIDAZOLAM HCL 50 MG in 0.9%NACL 50ML 50 ML IV SCH (14:06)
[2020-11-25] MEDS: FUROSEMIDE 20MG VIAL IV SCH (21:00)
[2020-11-25] MEDS: DEXMEDETOMIDINE HCL 400 MCG in 0.9%NACL 100ML 100 ML IV PRN (21:02)
[2020-11-26] VITALS (84 sets, daily range): BP systolic 90–166; BP diastolic 45–105
[2020-11-26] MEDS: SUCRALFATE 1 GM TABLET NG SCH ×4 (00:21→18:35)
[2020-11-26] MEDS: INSULIN REGULAR, HUMAN 3ML 100 UNIT in 0.9%NACL 100ML 99 ML IV PRN ×10 (00:22→14:00)
[2020-11-26] MEDS: ZOSYN 3.375GM+NS 50ML 50 ML IV SCH ×3 (03:20→18:35)
[2020-11-26] MEDS: DEXMEDETOMIDINE HCL 400 MCG in 0.9%NACL 100ML 100 ML IV PRN (03:23)
[2020-11-26 04:26] LABS: BASOPHILS % (AUTO) 0.2 % (0.0-5.0); EOSINOPHILS % (AUTO) 0.2 % (0.0-8.0); HEMATOCRIT 29.2 % (42-54); LYMPHOCYTES % (AUTO) 13.6 % (21.0-51.0); MEAN CORPUSCULAR HEMOGLOBIN 29.2 pg (27.0-33.0); MEAN CORPUSCULAR HGB CONC 30.8 g/dL (32.0-36.0); MEAN CORPUSCULAR VOLUME 94.8 fL (79-99); MONOCYTES % (AUTO) 3.5 % (3.0-13.0); NEUTROPHILS % (AUTO) 80.4 % (40.0-77.0); PLATELET COUNT (AUTO) 526 K/uL (130-400); RED BLOOD CELL COUNT(AUTO) 3.08 MIL/uL (4.50-6.20); RED CELL DISTRIBUTION WIDTH 15.8 % (11.0-15.5)
[2020-11-26 05:02] LABS: CREATININE 0.5 mg/dL (0.5-1.5); CRP QUANTITATIVE 143.3 mg/L (0.00-9.0); MAGNESIUM 1.8 mg/dL (1.80-2.40)
[2020-11-26 05:08] LABS: POTASSIUM 2.7 mmol/L (3.5-5.1)
[2020-11-26] MEDS: POTASSIUM CHLORIDE 20MEQ/100ML 100 ML IV PRN ×2 (05:41→09:45)
[2020-11-26] MEDS: MIDAZOLAM HCL 50 MG in 0.9%NACL 50ML 50 ML IV SCH ×2 (05:42→23:00)
[2020-11-26 08:14] LABS: ABG BASE EXCESS 17.7 mmol/L (-2.0-3.0); ABG HCO3 43.7 mmol/L (21.0-28.0); ABG OXYGEN SATURATION 89.6 % (95.0-99.0); ABG PCO2 60 mmHg (35-48)
[2020-11-26] MEDS: PRENATAL VITAMIN RX TABLET PO SCH (09:46)
[2020-11-26] MEDS: MIDODRINE HCL 5 MG TABLET GT SCH ×3 (09:46→22:57)
[2020-11-26] MEDS: BALSAM PERU/CASTOR OIL 60 GM TUBE TP SCH ×3 (09:46→23:03)
[2020-11-26] MEDS: THIAMINE HCL 100 MG TABLET PO SCH ×2 (09:46→22:57)
[2020-11-26] MEDS: ZINC SULFATE 220 CAPSULE PO SCH ×2 (09:46→22:57)
[2020-11-26] MEDS: FUROSEMIDE 20MG VIAL IV SCH (09:47)
[2020-11-26] MEDS: BARICITINIB (EUA) 2 MG TABLET PO SCH (09:47)
[2020-11-26] MEDS: PANTOPRAZOLE 40 MG/VIAL IVP SCH ×2 (09:47→22:59)
[2020-11-26] MEDS: SOLU-MEDROL 125MG VIAL IVP SCH (09:47)
[2020-11-26] MEDS: SODIUM BICARB NG SCH ×2 (09:50)
[2020-11-26] MEDS: LANSOPRAZOLE NG SCH ×2 (09:50)
[2020-11-26] MEDS: FENTANYL 2500MCG+NS 250ML 250 ML IV SCH (12:37)
[2020-11-26 14:15] LABS: CREATININE 0.4 mg/dL (0.5-1.5); POTASSIUM 4.2 mmol/L (3.5-5.1)
[2020-11-26] MEDS: MAGNESIUM 2GM PREMIX 50ML 50 ML IV PRN (16:07)
[2020-11-26 18:03] LABS: ABG BASE EXCESS 14.4 mmol/L (-2.0-3.0); ABG HCO3 44.5 mmol/L (21.0-28.0); ABG OXYGEN SATURATION 94.6 % (95.0-99.0); ABG PCO2 82 mmHg (35-48)
[2020-11-26] MEDS: DEXMEDETOMIDINE HCL 400 MCG in 0.9%NACL 100ML 100 ML IV SCH (20:02)
[2020-11-26] MEDS: POTASSIUM CHLORIDE 10% ELIXIR 20 MEQ/15 ML UDCUP NG SCH (22:59)
[2020-11-27] VITALS (43 sets, daily range): BP systolic 84–151; BP diastolic 44–95
[2020-11-27 00:16] LABS: ABG BASE EXCESS 9.7 mmol/L (-2.0-3.0); ABG HCO3 37.2 mmol/L (21.0-28.0); ABG OXYGEN SATURATION 94.7 % (95.0-99.0); ABG PCO2 62 mmHg (35-48)
[2020-11-27] MEDS ORDERED: VECURONIUM 10MG/10ML IV SCH (00:30)
[2020-11-27] MEDS: FUROSEMIDE 20MG VIAL IV SCH ×3 (00:31→21:19)
[2020-11-27] MEDS: DEXMEDETOMIDINE HCL 400 MCG in 0.9%NACL 100ML 100 ML IV SCH ×4 (01:07→20:37)
[2020-11-27] MEDS: SUCRALFATE 1 GM TABLET NG SCH ×4 (01:14→18:24)
[2020-11-27] MEDS: ZOSYN 3.375GM+NS 50ML 50 ML IV SCH ×3 (02:15→18:24)
[2020-11-27 06:11] LABS: BASOPHILS % (AUTO) 0.3 % (0.0-5.0); EOSINOPHILS % (AUTO) 0.3 % (0.0-8.0); HEMATOCRIT 29.2 % (42-54); LYMPHOCYTES % (AUTO) 14.1 % (21.0-51.0); MEAN CORPUSCULAR HEMOGLOBIN 29.3 pg (27.0-33.0); MEAN CORPUSCULAR HGB CONC 30.5 g/dL (32.0-36.0); MEAN CORPUSCULAR VOLUME 96.1 fL (79-99); MONOCYTES % (AUTO) 5.9 % (3.0-13.0); NEUTROPHILS % (AUTO) 76.9 % (40.0-77.0); NUCLEATED RED BLOOD CELLS 0.3 % (0.0-0.19); PLATELET COUNT (AUTO) 476 K/uL (130-400); RED BLOOD CELL COUNT(AUTO) 3.04 MIL/uL (4.50-6.20); WHITE BLOOD COUNT (AUTO) 11.6 K/uL (4.8-10.8)
[2020-11-27 06:34] LABS: BILIRUBIN,TOTAL 0.4 mg/dL (0.2-1.0); CREATININE 0.4 mg/dL (0.5-1.5); CRP QUANTITATIVE 70.1 mg/L (0.00-9.0); MAGNESIUM 2.1 mg/dL (1.80-2.40); POTASSIUM 3.6 mmol/L (3.5-5.1); TOTAL PROTEIN, SERUM 6.2 g/dL (6.0-8.3)
[2020-11-27] MEDS: FENTANYL 2500MCG+NS 250ML 250 ML IV SCH (08:00)
[2020-11-27] MEDS: SOLU-MEDROL 125MG VIAL IVP SCH (08:24)
[2020-11-27] MEDS: MIDODRINE HCL 5 MG TABLET GT SCH ×3 (08:24→21:19)
[2020-11-27] MEDS: PANTOPRAZOLE 40 MG/VIAL IVP SCH ×2 (08:24→21:19)
[2020-11-27] MEDS: LANSOPRAZOLE NG SCH ×2 (08:25)
[2020-11-27] MEDS: BALSAM PERU/CASTOR OIL 60 GM TUBE TP SCH ×3 (08:25→21:46)
[2020-11-27] MEDS: ZINC SULFATE 220 CAPSULE PO SCH ×2 (08:25→21:44)
[2020-11-27] MEDS: THIAMINE HCL 100 MG TABLET PO SCH ×2 (08:25→21:45)
[2020-11-27] MEDS: SODIUM BICARB NG SCH ×2 (08:25)
[2020-11-27] MEDS: PRENATAL VITAMIN RX TABLET PO SCH (08:25)
[2020-11-27] MEDS: POTASSIUM CHLORIDE 10% ELIXIR 20 MEQ/15 ML UDCUP NG SCH ×2 (08:25→21:20)
[2020-11-27] MEDS: BARICITINIB (EUA) 2 MG TABLET PO SCH (08:26)
[2020-11-27] MEDS ORDERED: MIDAZOLAM HCL 50 MG in 0.9%NACL 50ML 50 ML IV SCH (09:45)
[2020-11-27] MEDS ORDERED: FENTANYL CITRATE PF 0.05 MG/ML 1,000 MCG in 0.9%NACL 100ML 100 ML IVPB SCH (09:45)
[2020-11-27] MEDS: MIDAZOLAM HCL 50 MG in 0.9%NACL 50ML 50 ML IV SCH ×2 (11:58→20:34)
[2020-11-27] MEDS: INSULIN REGULAR, HUMAN 3ML 100 UNIT in 0.9%NACL 100ML 99 ML IV PRN ×2 (16:42)
[2020-11-28] VITALS (47 sets, daily range): BP systolic 87–133; BP diastolic 40–79
[2020-11-28] MEDS: SUCRALFATE 1 GM TABLET NG SCH ×4 (01:00→17:47)
[2020-11-28] MEDS ORDERED: DEXMEDETOMIDINE HCL 200 MCG/2 ML VIAL IV ONE (01:46)
[2020-11-28] MEDS ORDERED: 0.9%NACL 100ML 100 ML IV ONE (01:46)
[2020-11-28] MEDS: DEXMEDETOMIDINE HCL 400 MCG in 0.9%NACL 100ML 100 ML IV SCH (02:07)
[2020-11-28] MEDS: ZOSYN 3.375GM+NS 50ML 50 ML IV SCH ×3 (02:19→17:47)
[2020-11-28 05:55] LABS: BASOPHILS % (AUTO) 0.4 % (0.0-5.0); EOSINOPHILS % (AUTO) 0.5 % (0.0-8.0); HEMATOCRIT 33.3 % (42-54); LYMPHOCYTES % (AUTO) 20.8 % (21.0-51.0); MEAN CORPUSCULAR HEMOGLOBIN 29.6 pg (27.0-33.0); MEAN CORPUSCULAR HGB CONC 30.6 g/dL (32.0-36.0); MEAN CORPUSCULAR VOLUME 96.5 fL (79-99); MONOCYTES % (AUTO) 6.1 % (3.0-13.0); NEUTROPHILS % (AUTO) 68.9 % (40.0-77.0); NUCLEATED RED BLOOD CELLS 0.3 % (0.0-0.19); PLATELET COUNT (AUTO) 693 K/uL (130-400); RED BLOOD CELL COUNT(AUTO) 3.45 MIL/uL (4.50-6.20); RED CELL DISTRIBUTION WIDTH 16.2 % (11.0-15.5); WHITE BLOOD COUNT (AUTO) 18.7 K/uL (4.8-10.8)
[2020-11-28 06:15] LABS: CREATININE 0.4 mg/dL (0.5-1.5); POTASSIUM 4.3 mmol/L (3.5-5.1)
[2020-11-28] MEDS: MIDAZOLAM HCL 50 MG in 0.9%NACL 50ML 50 ML IV SCH ×2 (07:22→15:44)
[2020-11-28] MEDS ORDERED: DEXMEDETOMIDINE HCL 1,000 MCG in 0.9% NACL 250ML 250 ML IV SCH ×2 (08:15→09:30)
[2020-11-28] MEDS: ZINC SULFATE 220 CAPSULE PO SCH ×2 (08:32→21:06)
[2020-11-28] MEDS: SODIUM BICARB NG SCH ×2 (08:33)
[2020-11-28] MEDS: LANSOPRAZOLE NG SCH ×2 (08:33)
[2020-11-28] MEDS: PRENATAL VITAMIN RX TABLET PO SCH (08:33)
[2020-11-28] MEDS: POTASSIUM CHLORIDE 10% ELIXIR 20 MEQ/15 ML UDCUP NG SCH ×2 (08:33→21:05)
[2020-11-28] MEDS: PANTOPRAZOLE 40 MG/VIAL IVP SCH ×2 (08:34→21:04)
[2020-11-28] MEDS: SOLU-MEDROL 125MG VIAL IVP SCH (08:34)
[2020-11-28] MEDS: MIDODRINE HCL 5 MG TABLET GT SCH ×3 (08:34→21:04)
[2020-11-28] MEDS: THIAMINE HCL 100 MG TABLET PO SCH ×2 (08:35→21:06)
[2020-11-28] MEDS: BALSAM PERU/CASTOR OIL 60 GM TUBE TP SCH ×3 (08:36→21:07)
[2020-11-28] MEDS: FUROSEMIDE 20MG VIAL IV SCH ×2 (08:38→21:04)
[2020-11-28] MEDS ORDERED: ENOXAPARIN SODIUM 40 MG/0.4 ML SYRINGE SQ SCH (09:00)
[2020-11-28] MEDS: BARICITINIB (EUA) 2 MG TABLET PO SCH (09:22)
[2020-11-28] MEDS: INSULIN REGULAR, HUMAN 3ML 100 UNIT in 0.9%NACL 100ML 99 ML IV PRN ×2 (09:26)
[2020-11-28] MEDS ORDERED: PHARMACY COMMUNICATION MISC SCH ×2 (11:30→19:15)
[2020-11-28] MEDS ORDERED: VECURONIUM 10MG/10ML IV ONE (11:33)
[2020-11-28] MEDS ORDERED: VECURONIUM 10MG/10ML IV SCH (12:45)
[2020-11-28] MEDS: FENTANYL 2500MCG+NS 250ML 250 ML IV SCH (18:35)
[2020-11-29] VITALS (49 sets, daily range): BP systolic 85–145; BP diastolic 37–86
[2020-11-29] MEDS: DEXMEDETOMIDINE HCL 400 MCG in 0.9%NACL 100ML 100 ML IV SCH ×2 (00:26→21:21)
[2020-11-29] MEDS: SUCRALFATE 1 GM TABLET NG SCH ×4 (00:32→18:30)
[2020-11-29] MEDS: INSULIN REGULAR, HUMAN 3ML 100 UNIT in 0.9%NACL 100ML 99 ML IV PRN ×2 (01:39)
[2020-11-29] MEDS: ZOSYN 3.375GM+NS 50ML 50 ML IV SCH ×3 (02:18→18:30)
[2020-11-29 03:26] LABS: ABG BASE EXCESS 16.2 mmol/L (-2.0-3.0); ABG HCO3 44.5 mmol/L (21.0-28.0); ABG OXYGEN SATURATION 91.5 % (95.0-99.0); ABG PCO2 79 mmHg (35-48)
[2020-11-29] MEDS: VECURONIUM 10MG/10ML IV PRN ×2 (04:39→07:30)
[2020-11-29] MEDS: MIDAZOLAM HCL 50 MG in 0.9%NACL 50ML 50 ML IV SCH ×2 (05:54→10:54)
[2020-11-29 06:17] LABS: BASOPHILS % (AUTO) 0.3 % (0.0-5.0); EOSINOPHILS % (AUTO) 0.6 % (0.0-8.0); HEMATOCRIT 30.4 % (42-54); LYMPHOCYTES % (AUTO) 10.2 % (21.0-51.0); MEAN CORPUSCULAR HEMOGLOBIN 28.6 pg (27.0-33.0); MEAN CORPUSCULAR HGB CONC 29.6 g/dL (32.0-36.0); MEAN CORPUSCULAR VOLUME 96.5 fL (79-99); NEUTROPHILS % (AUTO) 80.8 % (40.0-77.0); PLATELET COUNT (AUTO) 595 K/uL (130-400); RED BLOOD CELL COUNT(AUTO) 3.15 MIL/uL (4.50-6.20); RED CELL DISTRIBUTION WIDTH 15.7 % (11.0-15.5); WHITE BLOOD COUNT (AUTO) 15.9 K/uL (4.8-10.8)
[2020-11-29 06:35] LABS: CREATININE 0.4 mg/dL (0.5-1.5); POTASSIUM 4.2 mmol/L (3.5-5.1)
[2020-11-29] MEDS: POTASSIUM CHLORIDE 10% ELIXIR 20 MEQ/15 ML UDCUP NG SCH ×2 (10:43→21:15)
[2020-11-29] MEDS: FUROSEMIDE 20MG VIAL IV SCH ×2 (10:43→21:18)
[2020-11-29] MEDS: BARICITINIB (EUA) 2 MG TABLET PO SCH (10:43)
[2020-11-29] MEDS: ZINC SULFATE 220 CAPSULE PO SCH ×2 (10:43→21:14)
[2020-11-29] MEDS: PANTOPRAZOLE 40 MG/VIAL IVP SCH ×2 (10:44→21:15)
[2020-11-29] MEDS: SOLU-MEDROL 125MG VIAL IVP SCH (10:44)
[2020-11-29] MEDS: MIDODRINE HCL 5 MG TABLET GT SCH ×3 (10:44→21:18)
[2020-11-29] MEDS: PRENATAL VITAMIN RX TABLET PO SCH (10:44)
[2020-11-29] MEDS: BALSAM PERU/CASTOR OIL 60 GM TUBE TP SCH ×3 (10:45→21:19)
[2020-11-29] MEDS: LANSOPRAZOLE NG SCH ×2 (10:45)
[2020-11-29] MEDS: SODIUM BICARB NG SCH ×2 (10:45)
[2020-11-29] MEDS: THIAMINE HCL 100 MG TABLET PO SCH ×2 (10:45→21:16)
[2020-11-29] MEDS: ENOXAPARIN SODIUM 40 MG/0.4 ML SYRINGE SQ SCH (21:18)
[2020-11-29] MEDS: FENTANYL 2500MCG+NS 250ML 250 ML IV SCH (21:27)
[2020-11-30] VITALS (40 sets, daily range): BP systolic 82–142; BP diastolic 45–89
[2020-11-30] MEDS: SUCRALFATE 1 GM TABLET NG SCH ×4 (01:46→17:13)
[2020-11-30] MEDS: DEXMEDETOMIDINE HCL 400 MCG in 0.9%NACL 100ML 100 ML IV SCH ×5 (02:15→16:30)
[2020-11-30] MEDS: ZOSYN 3.375GM+NS 50ML 50 ML IV SCH ×3 (02:16→17:13)
[2020-11-30] MEDS: MIDAZOLAM HCL 50 MG in 0.9%NACL 50ML 50 ML IV SCH (03:11)
[2020-11-30] MEDS ORDERED: 0.9%NACL 100ML 100 ML IV ONE (04:13)
[2020-11-30] MEDS: INSULIN REGULAR, HUMAN 3ML 100 UNIT in 0.9%NACL 100ML 99 ML IV PRN ×4 (04:20→19:53)
[2020-11-30 06:38] LABS: BASOPHILS % (AUTO) 0.2 % (0.0-5.0); EOSINOPHILS % (AUTO) 0.1 % (0.0-8.0); HEMATOCRIT 28.1 % (42-54); LYMPHOCYTES % (AUTO) 12.5 % (21.0-51.0); MEAN CORPUSCULAR HEMOGLOBIN 29.2 pg (27.0-33.0); MEAN CORPUSCULAR HGB CONC 29.9 g/dL (32.0-36.0); MEAN CORPUSCULAR VOLUME 97.6 fL (79-99); MONOCYTES % (AUTO) 6.3 % (3.0-13.0); NEUTROPHILS % (AUTO) 79.9 % (40.0-77.0); PLATELET COUNT (AUTO) 564 K/uL (130-400); RED BLOOD CELL COUNT(AUTO) 2.88 MIL/uL (4.50-6.20); RED CELL DISTRIBUTION WIDTH 15.8 % (11.0-15.5); WHITE BLOOD COUNT (AUTO) 10.8 K/uL (4.8-10.8)
[2020-11-30 07:03] LABS: CREATININE 0.4 mg/dL (0.5-1.5); POTASSIUM 3.5 mmol/L (3.5-5.1)
[2020-11-30] MEDS: POTASSIUM CHLORIDE 10% ELIXIR 20 MEQ/15 ML UDCUP NG SCH ×2 (08:12→21:00)
[2020-11-30] MEDS: PRENATAL VITAMIN RX TABLET PO SCH (08:13)
[2020-11-30] MEDS: VECURONIUM 10MG/10ML IV PRN ×2 (08:13→12:55)
[2020-11-30] MEDS: THIAMINE HCL 100 MG TABLET PO SCH ×2 (08:13→20:57)
[2020-11-30] MEDS: ZINC SULFATE 220 CAPSULE PO SCH ×2 (08:13→21:00)
[2020-11-30] MEDS: SOLU-MEDROL 125MG VIAL IVP SCH (08:14)
[2020-11-30] MEDS: SODIUM BICARB NG SCH ×2 (08:14)
[2020-11-30] MEDS: PANTOPRAZOLE 40 MG/VIAL IVP SCH ×2 (08:14→20:58)
[2020-11-30] MEDS: LANSOPRAZOLE NG SCH ×2 (08:14)
[2020-11-30] MEDS: ENOXAPARIN SODIUM 40 MG/0.4 ML SYRINGE SQ SCH ×2 (08:15→20:58)
[2020-11-30] MEDS: BALSAM PERU/CASTOR OIL 60 GM TUBE TP SCH ×3 (08:16→21:01)
[2020-11-30] MEDS: FUROSEMIDE 20MG VIAL IV SCH ×2 (10:22→20:59)
[2020-11-30] MEDS: MIDODRINE HCL 5 MG TABLET GT SCH ×3 (10:22→20:56)
[2020-11-30] MEDS: BARICITINIB (EUA) 2 MG TABLET PO SCH (10:23)
[2020-11-30 11:59] LABS: ABG BASE EXCESS 15.3 mmol/L (-2.0-3.0); ABG HCO3 45.5 mmol/L (21.0-28.0); ABG OXYGEN SATURATION 89.2 % (95.0-99.0); ABG PCO2 96 mmHg (35-48)
[2020-11-30 13:51] LABS: ABG HCO3 43.5 mmol/L (21.0-28.0); ABG OXYGEN SATURATION 95.7 % (95.0-99.0); ABG PCO2 91 mmHg (35-48)
[2020-11-30] MEDS: QUETIAPINE FUMARATE 25 MG TAB PO SCH ×2 (14:30→20:58)
[2020-12-01] VITALS (39 sets, daily range): BP systolic 80–146; BP diastolic 45–85
[2020-12-01] MEDS ORDERED: FENTANYL 2500MCG+NS 250ML 250 ML IV ONE (00:51)
[2020-12-01] MEDS: SUCRALFATE 1 GM TABLET NG SCH ×4 (01:02→18:44)
[2020-12-01] MEDS ORDERED: MIDAZOLAM 100MG-0.9% NS 100ML 100ML BAG IV ONE (01:30)
[2020-12-01] MEDS ORDERED: MIDAZOLAM HCL IV SCH (02:30)
[2020-12-01] MEDS ORDERED: [UNRECOGNIZED DRUG - OTHER] IV SCH (02:30)
[2020-12-01] MEDS: ZOSYN 3.375GM+NS 50ML 50 ML IV SCH ×3 (03:13→18:44)
[2020-12-01 06:27] LABS: BASOPHILS % (AUTO) 0.2 % (0.0-5.0); EOSINOPHILS % (AUTO) 0.2 % (0.0-8.0); HEMATOCRIT 27.8 % (42-54); LYMPHOCYTES % (AUTO) 17.4 % (21.0-51.0); MEAN CORPUSCULAR HEMOGLOBIN 29.2 pg (27.0-33.0); MEAN CORPUSCULAR HGB CONC 29.9 g/dL (32.0-36.0); MEAN CORPUSCULAR VOLUME 97.9 fL (79-99); MONOCYTES % (AUTO) 6.2 % (3.0-13.0); NEUTROPHILS % (AUTO) 75.1 % (40.0-77.0); PLATELET COUNT (AUTO) 555 K/uL (130-400); RED BLOOD CELL COUNT(AUTO) 2.84 MIL/uL (4.50-6.20); RED CELL DISTRIBUTION WIDTH 15.9 % (11.0-15.5); WHITE BLOOD COUNT (AUTO) 10.9 K/uL (4.8-10.8)
[2020-12-01 06:30] LABS: ABG HCO3 44.4 mmol/L (21.0-28.0); ABG OXYGEN SATURATION 91.4 % (95.0-99.0); ABG PCO2 72 mmHg (35-48)
[2020-12-01 06:44] LABS: CREATININE 0.4 mg/dL (0.5-1.5); CRP QUANTITATIVE 38.3 mg/L (0.00-9.0)
[2020-12-01] MEDS: DEXMEDETOMIDINE HCL 400 MCG in 0.9%NACL 100ML 100 ML IV SCH ×4 (08:00→22:47)
[2020-12-01] MEDS: SOLU-MEDROL 125MG VIAL IVP SCH (08:58)
[2020-12-01] MEDS: QUETIAPINE FUMARATE 25 MG TAB PO SCH ×2 (08:59→20:50)
[2020-12-01] MEDS: ZINC SULFATE 220 CAPSULE PO SCH ×2 (08:59→21:58)
[2020-12-01] MEDS: FUROSEMIDE 20MG VIAL IV SCH ×2 (08:59→20:49)
[2020-12-01] MEDS: THIAMINE HCL 100 MG TABLET PO SCH ×2 (08:59→21:58)
[2020-12-01] MEDS: PANTOPRAZOLE 40 MG/VIAL IVP SCH ×2 (08:59→20:49)
[2020-12-01] MEDS: PRENATAL VITAMIN RX TABLET PO SCH (09:00)
[2020-12-01] MEDS: BARICITINIB (EUA) 2 MG TABLET PO SCH (09:00)
[2020-12-01] MEDS: MIDODRINE HCL 5 MG TABLET GT SCH ×3 (09:00→20:48)
[2020-12-01] MEDS: POTASSIUM CHLORIDE 10% ELIXIR 20 MEQ/15 ML UDCUP NG SCH ×2 (09:00→20:50)
[2020-12-01] MEDS: VECURONIUM 10MG/10ML IV PRN (09:00)
[2020-12-01] MEDS: SODIUM BICARB NG SCH ×2 (09:01)
[2020-12-01] MEDS: LANSOPRAZOLE NG SCH ×2 (09:01)
[2020-12-01] MEDS: BALSAM PERU/CASTOR OIL 60 GM TUBE TP SCH ×3 (09:01→20:52)
[2020-12-01] MEDS: ENOXAPARIN SODIUM 40 MG/0.4 ML SYRINGE SQ SCH ×2 (09:01→20:51)
[2020-12-01] MEDS: MIDAZOLAM HCL 50 MG in 0.9%NACL 50ML 50 ML IV SCH (09:02)
[2020-12-01] MEDS: INSULIN REGULAR, HUMAN 3ML 100 UNIT in 0.9%NACL 100ML 99 ML IV PRN ×4 (10:30→23:00)
[2020-12-02] VITALS (45 sets, daily range): BP systolic 74–146; BP diastolic 32–95
[2020-12-02] MEDS: SUCRALFATE 1 GM TABLET NG SCH ×4 (01:13→17:53)
[2020-12-02] MEDS: ZOSYN 3.375GM+NS 50ML 50 ML IV SCH ×3 (01:52→17:51)
[2020-12-02] MEDS ORDERED: FENTANYL 2500MCG+NS 250ML 250 ML IV ONE (04:46)
[2020-12-02 05:01] LABS: BASOPHILS % (AUTO) 0.2 % (0.0-5.0); EOSINOPHILS % (AUTO) 0.4 % (0.0-8.0); HEMATOCRIT 30.4 % (42-54); LYMPHOCYTES % (AUTO) 11.5 % (21.0-51.0); MEAN CORPUSCULAR HEMOGLOBIN 29.3 pg (27.0-33.0); MEAN CORPUSCULAR HGB CONC 30.6 g/dL (32.0-36.0); MEAN CORPUSCULAR VOLUME 95.9 fL (79-99); MONOCYTES % (AUTO) 5.6 % (3.0-13.0); NEUTROPHILS % (AUTO) 81.3 % (40.0-77.0); NUCLEATED RED BLOOD CELLS 0.2 % (0.0-0.19); PLATELET COUNT (AUTO) 697 K/uL (130-400); RED BLOOD CELL COUNT(AUTO) 3.17 MIL/uL (4.50-6.20); RED CELL DISTRIBUTION WIDTH 16.2 % (11.0-15.5); WHITE BLOOD COUNT (AUTO) 16.9 K/uL (4.8-10.8)
[2020-12-02 05:18] LABS: ALBUMIN 2.3 g/dL (3.5-5.0); BILIRUBIN,TOTAL 0.6 mg/dL (0.2-1.0); CREATININE 0.5 mg/dL (0.5-1.5); CRP QUANTITATIVE 32.5 mg/L (0.00-9.0); POTASSIUM 3.3 mmol/L (3.5-5.1); TOTAL PROTEIN, SERUM 6.6 g/dL (6.0-8.3)
[2020-12-02] MEDS: DEXMEDETOMIDINE HCL 400 MCG in 0.9%NACL 100ML 100 ML IV SCH ×2 (05:38→15:21)
[2020-12-02 07:25] LABS: ABG BASE EXCESS 12.5 mmol/L (-2.0-3.0); ABG HCO3 36.3 mmol/L (21.0-28.0); ABG PCO2 44 mmHg (35-48)
[2020-12-02] MEDS: PRENATAL VITAMIN RX TABLET PO SCH (08:12)
[2020-12-02] MEDS: THIAMINE HCL 100 MG TABLET PO SCH ×2 (08:12→22:09)
[2020-12-02] MEDS: ENOXAPARIN SODIUM 40 MG/0.4 ML SYRINGE SQ SCH ×2 (08:12→22:05)
[2020-12-02] MEDS: MIDODRINE HCL 5 MG TABLET GT SCH ×3 (08:12→22:07)
[2020-12-02] MEDS: QUETIAPINE FUMARATE 25 MG TAB PO SCH ×2 (08:12→22:07)
[2020-12-02] MEDS: ZINC SULFATE 220 CAPSULE PO SCH ×2 (08:12→22:09)
[2020-12-02] MEDS: PANTOPRAZOLE 40 MG/VIAL IVP SCH ×2 (08:13→22:06)
[2020-12-02] MEDS: FUROSEMIDE 20MG VIAL IV SCH (08:13)
[2020-12-02] MEDS: POTASSIUM CHLORIDE 10% ELIXIR 20 MEQ/15 ML UDCUP NG SCH ×2 (08:13→22:04)
[2020-12-02] MEDS: SOLU-MEDROL 125MG VIAL IVP SCH (08:13)
[2020-12-02] MEDS: POTASSIUM CHLORIDE 20MEQ/100ML 100 ML IV PRN (08:15)
[2020-12-02] MEDS: BALSAM PERU/CASTOR OIL 60 GM TUBE TP SCH ×3 (08:17→22:10)
[2020-12-02] MEDS: MIDAZOLAM 100MG-0.9% NS 100ML 100 ML IV SCH (09:49)
[2020-12-02] MEDS: BARICITINIB (EUA) 2 MG TABLET PO SCH (10:05)
[2020-12-02] MEDS ORDERED: LABETALOL 20MG VIAL IV PRN (12:45)
[2020-12-02] MEDS: VECURONIUM 10MG/10ML IV PRN ×2 (14:21→22:09)
[2020-12-02] MEDS: LANSOPRAZOLE NG SCH ×2 (14:23)
[2020-12-02] MEDS: SODIUM BICARB NG SCH ×2 (14:23)
[2020-12-03] VITALS (65 sets, daily range): BP systolic 68–136; BP diastolic 31–79
[2020-12-03] MEDS: SUCRALFATE 1 GM TABLET NG SCH ×5 (01:07→23:58)
[2020-12-03] MEDS: ZOSYN 3.375GM+NS 50ML 50 ML IV SCH ×3 (01:41→18:08)
[2020-12-03] MEDS ORDERED: FENTANYL 2500MCG+NS 250ML 250 ML IV ONE ×2 (01:48→18:17)
[2020-12-03 04:45] LABS: BASOPHILS % (AUTO) 0.2 % (0.0-5.0); EOSINOPHILS % (AUTO) 0.5 % (0.0-8.0); HEMATOCRIT 30.1 % (42-54); LYMPHOCYTES % (AUTO) 9.5 % (21.0-51.0); MEAN CORPUSCULAR HEMOGLOBIN 29.2 pg (27.0-33.0); MEAN CORPUSCULAR HGB CONC 29.6 g/dL (32.0-36.0); MEAN CORPUSCULAR VOLUME 98.7 fL (79-99); MONOCYTES % (AUTO) 4.7 % (3.0-13.0); NEUTROPHILS % (AUTO) 84.2 % (40.0-77.0); NUCLEATED RED BLOOD CELLS 0.3 % (0.0-0.19); PLATELET COUNT (AUTO) 621 K/uL (130-400); RED BLOOD CELL COUNT(AUTO) 3.05 MIL/uL (4.50-6.20); RED CELL DISTRIBUTION WIDTH 16.5 % (11.0-15.5); WHITE BLOOD COUNT (AUTO) 15.4 K/uL (4.8-10.8)
[2020-12-03] MEDS: MIDAZOLAM 100MG-0.9% NS 100ML 100 ML IV SCH ×2 (04:49→18:29)
[2020-12-03 05:07] LABS: ALBUMIN 2.2 g/dL (3.5-5.0); BILIRUBIN,TOTAL 0.5 mg/dL (0.2-1.0); CREATININE 0.5 mg/dL (0.5-1.5); CRP QUANTITATIVE 26.6 mg/L (0.00-9.0); MAGNESIUM 1.9 mg/dL (1.80-2.40); POTASSIUM 3.9 mmol/L (3.5-5.1); TOTAL PROTEIN, SERUM 6.3 g/dL (6.0-8.3)
[2020-12-03 06:56] LABS: ABG BASE EXCESS 9.9 mmol/L (-2.0-3.0); ABG HCO3 35.9 mmol/L (21.0-28.0); ABG OXYGEN SATURATION 98.2 % (95.0-99.0); ABG PCO2 57 mmHg (35-48)
[2020-12-03] MEDS: PRENATAL VITAMIN RX TABLET PO SCH (09:00)
[2020-12-03] MEDS: SOLU-MEDROL 125MG VIAL IVP SCH (09:00)
[2020-12-03] MEDS: SODIUM BICARB NG SCH ×2 (09:00)
[2020-12-03] MEDS: BARICITINIB (EUA) 2 MG TABLET PO SCH (09:00)
[2020-12-03] MEDS: MIDODRINE HCL 5 MG TABLET GT SCH ×3 (09:00→21:08)
[2020-12-03] MEDS: ENOXAPARIN SODIUM 40 MG/0.4 ML SYRINGE SQ SCH ×2 (09:00→21:08)
[2020-12-03] MEDS: BALSAM PERU/CASTOR OIL 60 GM TUBE TP SCH ×3 (09:00→21:09)
[2020-12-03] MEDS: PANTOPRAZOLE 40 MG/VIAL IVP SCH ×2 (09:00→21:00)
[2020-12-03] MEDS: LANSOPRAZOLE NG SCH ×2 (09:00)
[2020-12-03] MEDS: QUETIAPINE FUMARATE 25 MG TAB PO SCH ×2 (09:00→21:09)
[2020-12-03] MEDS: POTASSIUM CHLORIDE 10% ELIXIR 20 MEQ/15 ML UDCUP NG SCH ×2 (09:00→21:09)
[2020-12-03] MEDS: ZINC SULFATE 220 CAPSULE PO SCH ×2 (11:11→21:09)
[2020-12-03] MEDS: THIAMINE HCL 100 MG TABLET PO SCH ×2 (11:11→21:09)
[2020-12-03] MEDS ORDERED: PROPOFOL 1000 MG/100 ML 100 ML IV ONE (11:33)
[2020-12-03] MEDS: INSULIN REGULAR, HUMAN 3ML 100 UNIT in 0.9%NACL 100ML 99 ML IV PRN ×4 (14:50→18:30)
[2020-12-03] MEDS: DEXMEDETOMIDINE HCL 400 MCG in 0.9%NACL 100ML 100 ML IV SCH ×2 (14:56→16:08)
[2020-12-03] MEDS ORDERED: PROPOFOL 10 MG/ML 20ML VIAL IV SCH (16:38)
[2020-12-03] MEDS: DEXMEDETOMIDINE HCL 1,000 MCG in 0.9% NACL 250ML 250 ML IV SCH ×2 (20:45→23:57)
[2020-12-03] MEDS ORDERED: FUROSEMIDE 20MG VIAL ONE (21:15)
[2020-12-03] MEDS: FUROSEMIDE 20MG VIAL IV SCH (21:17)
[2020-12-03] MEDS: NOREPINEPHRIN 4MG/NS 250ML 250 ML IV SCH (23:56)
[2020-12-04] VITALS (63 sets, daily range): BP systolic 74–169; BP diastolic 38–90
[2020-12-04] MEDS: ZOSYN 3.375GM+NS 50ML 50 ML IV SCH ×3 (02:27→17:03)
[2020-12-04] MEDS: DEXMEDETOMIDINE HCL 1,000 MCG in 0.9% NACL 250ML 250 ML IV SCH ×2 (04:07→06:41)
[2020-12-04] MEDS: SUCRALFATE 1 GM TABLET NG SCH ×3 (05:44→17:08)
[2020-12-04] MEDS: MIDAZOLAM 100MG-0.9% NS 100ML 100 ML IV SCH ×2 (06:32→20:34)
[2020-12-04 07:06] LABS: BASOPHILS % (AUTO) 0.1 % (0.0-5.0); EOSINOPHILS % (AUTO) 0.6 % (0.0-8.0); HEMATOCRIT 28.4 % (42-54); LYMPHOCYTES % (AUTO) 9.9 % (21.0-51.0); MEAN CORPUSCULAR HGB CONC 31.3 g/dL (32.0-36.0); MEAN CORPUSCULAR VOLUME 95.6 fL (79-99); MONOCYTES % (AUTO) 3.7 % (3.0-13.0); NEUTROPHILS % (AUTO) 85.1 % (40.0-77.0); NUCLEATED RED BLOOD CELLS 0.1 % (0.0-0.19); PLATELET COUNT (AUTO) 624 K/uL (130-400); RED BLOOD CELL COUNT(AUTO) 2.97 MIL/uL (4.50-6.20); RED CELL DISTRIBUTION WIDTH 16.4 % (11.0-15.5); WHITE BLOOD COUNT (AUTO) 19.6 K/uL (4.8-10.8)
[2020-12-04 07:20] LABS: CREATININE 0.4 mg/dL (0.5-1.5); CRP QUANTITATIVE 23.3 mg/L (0.00-9.0); POTASSIUM 3.5 mmol/L (3.5-5.1)
[2020-12-04] MEDS: ZINC SULFATE 220 CAPSULE PO SCH ×2 (08:56→20:59)
[2020-12-04] MEDS: MIDODRINE HCL 5 MG TABLET GT SCH ×3 (08:56→20:56)
[2020-12-04] MEDS: THIAMINE HCL 100 MG TABLET PO SCH ×2 (08:56→20:59)
[2020-12-04] MEDS: BARICITINIB (EUA) 2 MG TABLET PO SCH (08:56)
[2020-12-04] MEDS: PRENATAL VITAMIN RX TABLET PO SCH (08:56)
[2020-12-04] MEDS: QUETIAPINE FUMARATE 25 MG TAB PO SCH ×2 (08:56→20:58)
[2020-12-04] MEDS: POTASSIUM CHLORIDE 10% ELIXIR 20 MEQ/15 ML UDCUP NG SCH ×2 (08:57→20:58)
[2020-12-04] MEDS: SOLU-MEDROL 125MG VIAL IVP SCH (08:57)
[2020-12-04] MEDS: SODIUM BICARB NG SCH ×2 (08:58)
[2020-12-04] MEDS: LANSOPRAZOLE NG SCH ×2 (08:58)
[2020-12-04] MEDS: PANTOPRAZOLE 40 MG/VIAL IVP SCH ×2 (08:58→20:56)
[2020-12-04] MEDS: ENOXAPARIN SODIUM 40 MG/0.4 ML SYRINGE SQ SCH ×2 (08:58→20:59)
[2020-12-04] MEDS: FUROSEMIDE 20MG VIAL IV SCH ×2 (08:58→20:56)
[2020-12-04] MEDS: BALSAM PERU/CASTOR OIL 60 GM TUBE TP SCH ×3 (08:59→20:59)
[2020-12-04] MEDS ORDERED: FUROSEMIDE 20MG VIAL ONE ×2 (09:07→20:54)
[2020-12-04] MEDS: DEXMEDETOMIDINE HCL 400 MCG in 0.9%NACL 100ML 100 ML IV SCH ×4 (13:10→19:21)
[2020-12-04] MEDS: NOREPINEPHRIN 4MG/NS 250ML 250 ML IV SCH (13:12)
[2020-12-04] MEDS: FENTANYL 2500MCG+NS 250ML 250 ML IV SCH ×2 (13:12→20:33)
[2020-12-04] MEDS ORDERED: METOCLOPRAMIDE 10 MG/2 ML VIAL ONE (20:54)
[2020-12-04] MEDS: METOCLOPRAMIDE 10 MG/2 ML VIAL IVP SCH (21:00)
[2020-12-05] VITALS (79 sets, daily range): BP systolic 83–137; BP diastolic 45–105
[2020-12-05] MEDS: DEXMEDETOMIDINE HCL 400 MCG in 0.9%NACL 100ML 100 ML IV SCH ×10 (00:55→21:30)
[2020-12-05] MEDS: NOREPINEPHRIN 4MG/NS 250ML 250 ML IV SCH ×5 (00:56→18:40)
[2020-12-05] MEDS: ZOSYN 3.375GM+NS 50ML 50 ML IV SCH ×3 (01:11→16:31)
[2020-12-05] MEDS: SUCRALFATE 1 GM TABLET NG SCH ×4 (01:11→18:39)
[2020-12-05] MEDS: INSULIN REGULAR, HUMAN 3ML 100 UNIT in 0.9%NACL 100ML 99 ML IV PRN ×2 (02:42)
[2020-12-05] MEDS: METOCLOPRAMIDE 10 MG/2 ML VIAL IVP SCH ×3 (05:59→21:03)
[2020-12-05 06:14] LABS: ABG BASE EXCESS -0.4 mmol/L (-2.0-3.0); ABG HCO3 29.1 mmol/L (21.0-28.0); ABG OXYGEN SATURATION 91.9 % (95.0-99.0); ABG PCO2 79 mmHg (35-48)
[2020-12-05 06:28] LABS: BASOPHILS % (AUTO) 0.2 % (0.0-5.0); HEMATOCRIT 30.4 % (42-54); MEAN CORPUSCULAR HEMOGLOBIN 29.1 pg (27.0-33.0); MEAN CORPUSCULAR HGB CONC 29.6 g/dL (32.0-36.0); MEAN CORPUSCULAR VOLUME 98.4 fL (79-99); NEUTROPHILS % (AUTO) 78.9 % (40.0-77.0); NUCLEATED RED BLOOD CELLS 0.2 % (0.0-0.19); PLATELET COUNT (AUTO) 623 K/uL (130-400); RED BLOOD CELL COUNT(AUTO) 3.09 MIL/uL (4.50-6.20); RED CELL DISTRIBUTION WIDTH 17.2 % (11.0-15.5); WHITE BLOOD COUNT (AUTO) 19.3 K/uL (4.8-10.8)
[2020-12-05 06:34] LABS: ABG BASE EXCESS 4.1 mmol/L (-2.0-3.0); ABG HCO3 32.3 mmol/L (21.0-28.0); ABG OXYGEN SATURATION 96.4 % (95.0-99.0); ABG PCO2 65 mmHg (35-48)
[2020-12-05 06:37] LABS: CREATININE 0.5 mg/dL (0.5-1.5); CRP QUANTITATIVE 34.3 mg/L (0.00-9.0); POTASSIUM 4.7 mmol/L (3.5-5.1)
[2020-12-05 06:52] LABS: B-TYPE NATRIURETIC PEPTIDE 22 pg/mL (0-100)
[2020-12-05] MEDS: QUETIAPINE FUMARATE 25 MG TAB PO SCH ×2 (07:52→20:58)
[2020-12-05] MEDS: PRENATAL VITAMIN RX TABLET PO SCH (07:52)
[2020-12-05] MEDS: PANTOPRAZOLE 40 MG/VIAL IVP SCH ×2 (07:53→20:59)
[2020-12-05] MEDS: THIAMINE HCL 100 MG TABLET PO SCH ×2 (07:53→20:59)
[2020-12-05] MEDS: SOLU-MEDROL 125MG VIAL IVP SCH (07:53)
[2020-12-05] MEDS: POTASSIUM CHLORIDE 10% ELIXIR 20 MEQ/15 ML UDCUP NG SCH ×2 (07:54→20:58)
[2020-12-05] MEDS: ZINC SULFATE 220 CAPSULE PO SCH ×2 (07:54→20:58)
[2020-12-05] MEDS: MIDODRINE HCL 5 MG TABLET GT SCH ×3 (07:54→20:57)
[2020-12-05] MEDS: ENOXAPARIN SODIUM 40 MG/0.4 ML SYRINGE SQ SCH ×2 (07:55→20:58)
[2020-12-05] MEDS: BALSAM PERU/CASTOR OIL 60 GM TUBE TP SCH ×3 (07:56→20:59)
[2020-12-05] MEDS: MIDAZOLAM 100MG-0.9% NS 100ML 100 ML IV SCH ×2 (08:01→20:56)
[2020-12-05] MEDS: BARICITINIB (EUA) 2 MG TABLET PO SCH (08:34)
[2020-12-05] MEDS: SODIUM BICARB NG SCH ×2 (09:53)
[2020-12-05] MEDS: LANSOPRAZOLE NG SCH ×2 (09:53)
[2020-12-05] MEDS ORDERED: FUROSEMIDE 20MG VIAL ONE ×2 (09:56→21:02)
[2020-12-05] MEDS: FUROSEMIDE 20MG VIAL IV SCH ×2 (09:57→21:03)
[2020-12-05] MEDS: FENTANYL 2500MCG+NS 250ML 250 ML IV SCH (11:40)
[2020-12-06] VITALS (43 sets, daily range): BP systolic 99–159; BP diastolic 60–92
[2020-12-06] MEDS: SUCRALFATE 1 GM TABLET NG SCH ×4 (00:01→20:23)
[2020-12-06] MEDS: NOREPINEPHRIN 4MG/NS 250ML 250 ML IV SCH ×4 (00:02→18:19)
[2020-12-06] MEDS: DEXMEDETOMIDINE HCL 400 MCG in 0.9%NACL 100ML 100 ML IV SCH ×9 (00:03→22:07)
[2020-12-06] MEDS: FENTANYL 2500MCG+NS 250ML 250 ML IV SCH ×2 (01:39→08:13)
[2020-12-06] MEDS: INSULIN REGULAR, HUMAN 3ML 100 UNIT in 0.9%NACL 100ML 99 ML IV PRN ×2 (01:40)
[2020-12-06] MEDS: ZOSYN 3.375GM+NS 50ML 50 ML IV SCH ×2 (02:10→08:02)
[2020-12-06] MEDS: METOCLOPRAMIDE 10 MG/2 ML VIAL IVP SCH ×2 (05:30→14:00)
[2020-12-06 05:54] LABS: BASOPHILS % (AUTO) 0.2 % (0.0-5.0); EOSINOPHILS % (AUTO) 0.2 % (0.0-8.0); HEMATOCRIT 30.3 % (42-54); LYMPHOCYTES % (AUTO) 5.7 % (21.0-51.0); MEAN CORPUSCULAR HEMOGLOBIN 29.6 pg (27.0-33.0); MEAN CORPUSCULAR HGB CONC 30.7 g/dL (32.0-36.0); MEAN CORPUSCULAR VOLUME 96.5 fL (79-99); MONOCYTES % (AUTO) 4.5 % (3.0-13.0); NEUTROPHILS % (AUTO) 88.6 % (40.0-77.0); PLATELET COUNT (AUTO) 651 K/uL (130-400); RED BLOOD CELL COUNT(AUTO) 3.14 MIL/uL (4.50-6.20); RED CELL DISTRIBUTION WIDTH 16.4 % (11.0-15.5); WHITE BLOOD COUNT (AUTO) 21.4 K/uL (4.8-10.8)
[2020-12-06 05:57] LABS: ALBUMIN 2.3 g/dL (3.5-5.0); BILIRUBIN,TOTAL 0.4 mg/dL (0.2-1.0); CREATININE 0.4 mg/dL (0.5-1.5); POTASSIUM 3.7 mmol/L (3.5-5.1); TOTAL PROTEIN, SERUM 6.6 g/dL (6.0-8.3)
[2020-12-06 06:35] LABS: ABG HCO3 38.5 mmol/L (21.0-28.0); ABG PCO2 84 mmHg (35-48)
[2020-12-06] MEDS: POTASSIUM CHLORIDE 20MEQ/100ML 100 ML IV PRN (06:35)
[2020-12-06] MEDS: PANTOPRAZOLE 40 MG/VIAL IVP SCH ×2 (08:02→21:16)
[2020-12-06] MEDS: POTASSIUM CHLORIDE 10% ELIXIR 20 MEQ/15 ML UDCUP NG SCH ×2 (08:03→21:25)
[2020-12-06] MEDS: ENOXAPARIN SODIUM 40 MG/0.4 ML SYRINGE SQ SCH ×2 (08:03→21:24)
[2020-12-06] MEDS: THIAMINE HCL 100 MG TABLET PO SCH ×2 (08:04→21:24)
[2020-12-06] MEDS: PRENATAL VITAMIN RX TABLET PO SCH (08:04)
[2020-12-06] MEDS: QUETIAPINE FUMARATE 25 MG TAB PO SCH ×2 (08:04→21:23)
[2020-12-06] MEDS: ZINC SULFATE 220 CAPSULE PO SCH ×2 (08:05→21:23)
[2020-12-06] MEDS: SOLU-MEDROL 125MG VIAL IVP SCH (08:05)
[2020-12-06] MEDS: MIDODRINE HCL 5 MG TABLET GT SCH ×3 (08:05→21:18)
[2020-12-06] MEDS: SODIUM BICARB NG SCH ×2 (08:06)
[2020-12-06] MEDS: BALSAM PERU/CASTOR OIL 60 GM TUBE TP SCH ×3 (08:06→21:24)
[2020-12-06] MEDS: LANSOPRAZOLE NG SCH ×2 (08:06)
[2020-12-06] MEDS: MIDAZOLAM 100MG-0.9% NS 100ML 100 ML IV SCH (08:11)
[2020-12-06] MEDS: BARICITINIB (EUA) 2 MG TABLET PO SCH (08:14)
[2020-12-06] MEDS: FUROSEMIDE 20MG VIAL IV SCH ×2 (09:00→21:27)
[2020-12-06] MEDS ORDERED: FUROSEMIDE 20MG VIAL ONE ×2 (11:07→21:26)
[2020-12-06] MEDS: MEROPENEM 1 GM VIAL IVP SCH (15:52)
[2020-12-06 16:26] LABS: INR 1.1 (0.85-1.15); PROTHROMBIN TIME 11.9 SEC (9.6-11.6)
[2020-12-06 16:28] LABS: PARTIAL THROMBOPLASTIN TIME 27.9 SEC (26.3-35.5)
[2020-12-06] MEDS: SOLU-MEDROL 40MG VIAL IVP SCH (21:23)
[2020-12-07] VITALS (86 sets, daily range): BP systolic 93–166; BP diastolic 51–97
[2020-12-07] MEDS: MEROPENEM 1 GM VIAL IVP SCH ×3 (00:05→16:38)
[2020-12-07] MEDS: NOREPINEPHRIN 4MG/NS 250ML 250 ML IV SCH ×3 (00:50→21:13)
[2020-12-07] MEDS: SUCRALFATE 1 GM TABLET NG SCH ×4 (00:51→18:29)
[2020-12-07] MEDS: FENTANYL 2500MCG+NS 250ML 250 ML IV SCH ×2 (03:02→07:28)
[2020-12-07] MEDS: MIDAZOLAM 100MG-0.9% NS 100ML 100 ML IV SCH ×3 (03:02→19:19)
[2020-12-07] MEDS: DEXMEDETOMIDINE HCL 400 MCG in 0.9%NACL 100ML 100 ML IV SCH ×3 (03:03→06:26)
[2020-12-07] MEDS: INSULIN REGULAR, HUMAN 3ML 100 UNIT in 0.9%NACL 100ML 99 ML IV PRN ×4 (03:04→20:52)
[2020-12-07 04:34] LABS: CRP QUANTITATIVE 42.7 mg/L (0.00-9.0)
[2020-12-07 05:31] LABS: BASOPHILS % (AUTO) 0.1 % (0.0-5.0); HEMATOCRIT 29.8 % (42-54); LYMPHOCYTES % (AUTO) 1.7 % (21.0-51.0); MEAN CORPUSCULAR HEMOGLOBIN 29.3 pg (27.0-33.0); MEAN CORPUSCULAR HGB CONC 30.5 g/dL (32.0-36.0); MEAN CORPUSCULAR VOLUME 95.8 fL (79-99); MONOCYTES % (AUTO) 1.4 % (3.0-13.0); NEUTROPHILS % (AUTO) 96.1 % (40.0-77.0); PLATELET COUNT (AUTO) 579 K/uL (130-400); RED BLOOD CELL COUNT(AUTO) 3.11 MIL/uL (4.50-6.20); RED CELL DISTRIBUTION WIDTH 15.9 % (11.0-15.5); WHITE BLOOD COUNT (AUTO) 21.4 K/uL (4.8-10.8)
[2020-12-07 05:45] LABS: ALBUMIN 2.3 g/dL (3.5-5.0); BILIRUBIN,TOTAL 0.4 mg/dL (0.2-1.0); CREATININE 0.4 mg/dL (0.5-1.5); MAGNESIUM 1.5 mg/dL (1.80-2.40); POTASSIUM 3.6 mmol/L (3.5-5.1); TOTAL PROTEIN, SERUM 6.4 g/dL (6.0-8.3)
[2020-12-07] MEDS: MAGNESIUM 2GM PREMIX 50ML 50 ML IV PRN (06:22)
[2020-12-07] MEDS: POTASSIUM CHLORIDE 20MEQ/100ML 100 ML IV PRN (06:22)
[2020-12-07 06:46] LABS: ABG BASE EXCESS 10.1 mmol/L (-2.0-3.0); ABG HCO3 38.2 mmol/L (21.0-28.0); ABG OXYGEN SATURATION 96.6 % (95.0-99.0); ABG PCO2 67 mmHg (35-48)
[2020-12-07] MEDS ORDERED: FUROSEMIDE 20MG VIAL ONE ×2 (07:03→21:05)
[2020-12-07] MEDS: FUROSEMIDE 20MG VIAL IV SCH ×2 (07:19→21:10)
[2020-12-07] MEDS: QUETIAPINE FUMARATE 25 MG TAB PO SCH ×2 (07:20→21:08)
[2020-12-07] MEDS: PANTOPRAZOLE 40 MG/VIAL IVP SCH ×2 (07:20→21:10)
[2020-12-07] MEDS: THIAMINE HCL 100 MG TABLET PO SCH ×2 (07:20→21:08)
[2020-12-07] MEDS: PRENATAL VITAMIN RX TABLET PO SCH (07:20)
[2020-12-07] MEDS: ENOXAPARIN SODIUM 40 MG/0.4 ML SYRINGE SQ SCH ×2 (07:21→21:09)
[2020-12-07] MEDS: SOLU-MEDROL 40MG VIAL IVP SCH ×2 (07:21→21:10)
[2020-12-07] MEDS: ZINC SULFATE 220 CAPSULE PO SCH ×2 (07:21→21:07)
[2020-12-07] MEDS: MIDODRINE HCL 5 MG TABLET GT SCH ×3 (07:22→21:08)
[2020-12-07] MEDS: BALSAM PERU/CASTOR OIL 60 GM TUBE TP SCH ×3 (07:22→21:11)
[2020-12-07] MEDS: SODIUM BICARB NG SCH ×2 (07:23)
[2020-12-07] MEDS: LANSOPRAZOLE NG SCH ×2 (07:23)
[2020-12-07] MEDS: POTASSIUM CHLORIDE 10% ELIXIR 20 MEQ/15 ML UDCUP NG SCH ×2 (07:39→21:10)
[2020-12-07] MEDS: DEXMEDETOMIDINE HCL 1,000 MCG in 0.9% NACL 250ML 250 ML IV SCH ×3 (09:08→21:13)
[2020-12-08] VITALS (80 sets, daily range): BP systolic 92–159; BP diastolic 34–94
[2020-12-08] MEDS: SUCRALFATE 1 GM TABLET NG SCH ×4 (00:03→18:32)
[2020-12-08] MEDS: MEROPENEM 1 GM VIAL IVP SCH ×4 (00:03→23:42)
[2020-12-08] MEDS: DEXMEDETOMIDINE HCL 1,000 MCG in 0.9% NACL 250ML 250 ML IV SCH ×2 (02:57→14:02)
[2020-12-08] MEDS: FENTANYL 2500MCG+NS 250ML 250 ML IV SCH ×2 (02:58→18:29)
[2020-12-08] MEDS: MIDAZOLAM 100MG-0.9% NS 100ML 100 ML IV SCH ×2 (04:02→11:59)
[2020-12-08 04:40] LABS: CRP QUANTITATIVE 24.7 mg/L (0.00-9.0)
[2020-12-08 05:38] LABS: BASOPHILS % (AUTO) 0.1 % (0.0-5.0); HEMATOCRIT 30.9 % (42-54); LYMPHOCYTES % (AUTO) 0.8 % (21.0-51.0); MEAN CORPUSCULAR HEMOGLOBIN 29.3 pg (27.0-33.0); MEAN CORPUSCULAR HGB CONC 30.4 g/dL (32.0-36.0); MEAN CORPUSCULAR VOLUME 96.3 fL (79-99); MONOCYTES % (AUTO) 2.1 % (3.0-13.0); NEUTROPHILS % (AUTO) 96.4 % (40.0-77.0); PLATELET COUNT (AUTO) 565 K/uL (130-400); RED BLOOD CELL COUNT(AUTO) 3.21 MIL/uL (4.50-6.20); WHITE BLOOD COUNT (AUTO) 19.5 K/uL (4.8-10.8)
[2020-12-08 05:47] LABS: CREATININE 0.5 mg/dL (0.5-1.5); POTASSIUM 3.9 mmol/L (3.5-5.1)
[2020-12-08] MEDS: NOREPINEPHRIN 4MG/NS 250ML 250 ML IV SCH ×2 (06:03→15:55)
[2020-12-08 06:44] LABS: ABG BASE EXCESS 10.6 mmol/L (-2.0-3.0); ABG PCO2 40 mmHg (35-48)
[2020-12-08 07:01] LABS: ABG BASE EXCESS 11.8 mmol/L (-2.0-3.0); ABG OXYGEN SATURATION 95.4 % (95.0-99.0); ABG PCO2 49 mmHg (35-48)
[2020-12-08] MEDS: QUETIAPINE FUMARATE 25 MG TAB PO SCH ×2 (07:54→21:03)
[2020-12-08] MEDS: ZINC SULFATE 220 CAPSULE PO SCH ×2 (07:54→21:03)
[2020-12-08] MEDS: PRENATAL VITAMIN RX TABLET PO SCH (07:54)
[2020-12-08] MEDS: SOLU-MEDROL 40MG VIAL IVP SCH ×2 (07:54→20:55)
[2020-12-08] MEDS: POTASSIUM CHLORIDE 10% ELIXIR 20 MEQ/15 ML UDCUP NG SCH ×2 (07:54→20:55)
[2020-12-08] MEDS: ENOXAPARIN SODIUM 40 MG/0.4 ML SYRINGE SQ SCH ×2 (07:55→21:06)
[2020-12-08] MEDS: PANTOPRAZOLE 40 MG/VIAL IVP SCH ×2 (07:55→20:54)
[2020-12-08] MEDS: BALSAM PERU/CASTOR OIL 60 GM TUBE TP SCH ×3 (07:56→21:06)
[2020-12-08] MEDS: MIDODRINE HCL 5 MG TABLET GT SCH ×3 (09:23→20:55)
[2020-12-08] MEDS: FUROSEMIDE 20MG VIAL IV SCH ×2 (09:24→20:55)
[2020-12-08] MEDS: SODIUM BICARB NG SCH ×2 (10:09)
[2020-12-08] MEDS: LANSOPRAZOLE NG SCH ×2 (10:09)
[2020-12-08] MEDS: THIAMINE HCL 100 MG TABLET PO SCH ×2 (10:13→21:32)
[2020-12-08] MEDS: ALPRAZOLAM 0.5 MG TABLET GT PRN ×2 (10:15→23:42)
[2020-12-08] MEDS: INSULIN REGULAR, HUMAN 3ML 100 UNIT in 0.9%NACL 100ML 99 ML IV PRN ×2 (18:28)
[2020-12-08] MEDS: INSULIN GLARGINE 100 UNITS/ML 10 ML VIAL SQ SCH (20:56)
[2020-12-09] VITALS (76 sets, daily range): BP systolic 61–134; BP diastolic 25–87
[2020-12-09] MEDS: SUCRALFATE 1 GM TABLET NG SCH ×4 (01:00→18:09)
[2020-12-09 04:11] LABS: HEMATOCRIT 30.4 % (42-54); MEAN CORPUSCULAR HEMOGLOBIN 29.4 pg (27.0-33.0); MEAN CORPUSCULAR HGB CONC 31.3 g/dL (32.0-36.0); MEAN CORPUSCULAR VOLUME 94.1 fL (79-99); PLATELET COUNT (AUTO) 459 K/uL (130-400); RED BLOOD CELL COUNT(AUTO) 3.23 MIL/uL (4.50-6.20); RED CELL DISTRIBUTION WIDTH 17.2 % (11.0-15.5); WHITE BLOOD COUNT (AUTO) 16.9 K/uL (4.8-10.8)
[2020-12-09 04:17] LABS: CREATININE 0.4 mg/dL (0.5-1.5); CRP QUANTITATIVE 16.8 mg/L (0.00-9.0); POTASSIUM 3.9 mmol/L (3.5-5.1)
[2020-12-09 05:28] LABS: ALBUMIN 2.3 g/dL (3.5-5.0); BILIRUBIN,TOTAL 0.2 mg/dL (0.2-1.0); TOTAL PROTEIN, SERUM 6.2 g/dL (6.0-8.3)
[2020-12-09 05:30] LABS: BAND NEUTROPHILS % (MANUAL) 2 % (0-2); LYMPHOCYTES % (MANUAL) 4 % (22-44); MONOCYTES % (MANUAL) 8 % (2-9); SEGMENTED NEUTROPHILS % 86 % (40-70)
[2020-12-09 05:31] LABS: MAN.DIFF COMMENT-IMPRESSION MANUAL DIFFERENTIAL
[2020-12-09 07:20] LABS: ABG BASE EXCESS 12.4 mmol/L (-2.0-3.0); ABG HCO3 37.5 mmol/L (21.0-28.0); ABG OXYGEN SATURATION 96.3 % (95.0-99.0); ABG PCO2 52 mmHg (35-48)
[2020-12-09] MEDS: PRENATAL VITAMIN RX TABLET PO SCH (08:00)
[2020-12-09] MEDS: MIDODRINE HCL 5 MG TABLET GT SCH ×3 (08:00→21:06)
[2020-12-09] MEDS: MEROPENEM 1 GM VIAL IVP SCH ×2 (08:01→15:23)
[2020-12-09] MEDS: QUETIAPINE FUMARATE 25 MG TAB PO SCH ×2 (08:01→21:11)
[2020-12-09] MEDS: PANTOPRAZOLE 40 MG/VIAL IVP SCH ×2 (08:01→21:05)
[2020-12-09] MEDS: SOLU-MEDROL 40MG VIAL IVP SCH ×2 (08:01→21:07)
[2020-12-09] MEDS: FUROSEMIDE 20MG VIAL IV SCH ×2 (08:01→21:06)
[2020-12-09] MEDS: THIAMINE HCL 100 MG TABLET PO SCH ×2 (08:01→21:11)
[2020-12-09] MEDS: ZINC SULFATE 220 CAPSULE PO SCH ×2 (08:01→21:11)
[2020-12-09] MEDS: POTASSIUM CHLORIDE 10% ELIXIR 20 MEQ/15 ML UDCUP NG SCH ×2 (08:02→21:06)
[2020-12-09] MEDS: ENOXAPARIN SODIUM 40 MG/0.4 ML SYRINGE SQ SCH ×2 (08:02→21:07)
[2020-12-09] MEDS: BALSAM PERU/CASTOR OIL 60 GM TUBE TP SCH ×3 (08:03→21:08)
[2020-12-09] MEDS: LANSOPRAZOLE NG SCH ×2 (08:03)
[2020-12-09] MEDS: SODIUM BICARB NG SCH ×2 (08:03)
[2020-12-09] MEDS: INSULIN GLARGINE 100 UNITS/ML 10 ML VIAL SQ SCH ×2 (08:35→21:08)
[2020-12-09] MEDS: DEXMEDETOMIDINE HCL 1,000 MCG in 0.9% NACL 250ML 250 ML IV SCH ×2 (09:16→15:24)
[2020-12-09] MEDS ORDERED: FENTANYL CITRATE PF 0.05 MG/ML 1,000 MCG in 0.9%NACL 100ML 100 ML IVPB SCH (10:15)
[2020-12-09] MEDS: FENTANYL 2500MCG+NS 250ML 250 ML IV SCH (10:40)
[2020-12-09] MEDS: NOREPINEPHRIN 4MG/NS 250ML 250 ML IV SCH (11:09)
[2020-12-09] MEDS: MIDAZOLAM 100MG-0.9% NS 100ML 100 ML IV SCH (11:10)
[2020-12-09] MEDS: INSULIN HUMULIN R 100 UNIT/ML 3ML SQ SCH (18:09)
[2020-12-09] MEDS: ALPRAZOLAM 0.5 MG TABLET PO PRN (18:09)
[2020-12-10] VITALS (34 sets, daily range): BP systolic 97–146; BP diastolic 36–95
[2020-12-10] MEDS: MEROPENEM 1 GM VIAL IVP SCH ×3 (00:26→15:27)
[2020-12-10] MEDS: SUCRALFATE 1 GM TABLET NG SCH ×4 (01:00→18:14)
[2020-12-10] MEDS: FENTANYL 2500MCG+NS 250ML 250 ML IV SCH ×2 (01:12→16:59)
[2020-12-10] MEDS: INSULIN HUMULIN R 100 UNIT/ML 3ML SQ SCH ×4 (05:32→18:00)
[2020-12-10 06:13] LABS: BASOPHILS % (AUTO) 0.2 % (0.0-5.0); HEMATOCRIT 33.1 % (42-54); LYMPHOCYTES % (AUTO) 1.2 % (21.0-51.0); MEAN CORPUSCULAR HEMOGLOBIN 29.7 pg (27.0-33.0); MEAN CORPUSCULAR HGB CONC 31.1 g/dL (32.0-36.0); MEAN CORPUSCULAR VOLUME 95.4 fL (79-99); MONOCYTES % (AUTO) 3.2 % (3.0-13.0); NEUTROPHILS % (AUTO) 93.8 % (40.0-77.0); NUCLEATED RED BLOOD CELLS 0.4 % (0.0-0.19); PLATELET COUNT (AUTO) 566 K/uL (130-400); RED BLOOD CELL COUNT(AUTO) 3.47 MIL/uL (4.50-6.20); RED CELL DISTRIBUTION WIDTH 17.2 % (11.0-15.5); WHITE BLOOD COUNT (AUTO) 20.7 K/uL (4.8-10.8)
[2020-12-10 06:27] LABS: CREATININE 0.4 mg/dL (0.5-1.5)
[2020-12-10 06:43] LABS: ABG BASE EXCESS 7.7 mmol/L (-2.0-3.0); ABG HCO3 35.1 mmol/L (21.0-28.0); ABG OXYGEN SATURATION 96.3 % (95.0-99.0); ABG PCO2 60 mmHg (35-48)
[2020-12-10] MEDS: NOREPINEPHRIN 4MG/NS 250ML 250 ML IV SCH ×2 (09:00→16:20)
[2020-12-10] MEDS: PANTOPRAZOLE 40 MG/VIAL IVP SCH (09:06)
[2020-12-10] MEDS: FUROSEMIDE 20MG VIAL IV SCH ×2 (09:07→20:56)
[2020-12-10] MEDS: SOLU-MEDROL 40MG VIAL IVP SCH ×2 (09:07→20:54)
[2020-12-10] MEDS: QUETIAPINE FUMARATE 25 MG TAB PO SCH ×2 (09:14→21:10)
[2020-12-10] MEDS: PRENATAL VITAMIN RX TABLET PO SCH (09:14)
[2020-12-10] MEDS: THIAMINE HCL 100 MG TABLET PO SCH ×2 (09:14→21:30)
[2020-12-10] MEDS: ZINC SULFATE 220 CAPSULE PO SCH ×2 (09:14→21:30)
[2020-12-10] MEDS: MIDODRINE HCL 5 MG TABLET GT SCH ×3 (09:14→20:55)
[2020-12-10] MEDS: POTASSIUM CHLORIDE 10% ELIXIR 20 MEQ/15 ML UDCUP NG SCH ×2 (09:15→20:55)
[2020-12-10] MEDS: BALSAM PERU/CASTOR OIL 60 GM TUBE TP SCH ×3 (09:16→21:10)
[2020-12-10] MEDS: ENOXAPARIN SODIUM 40 MG/0.4 ML SYRINGE SQ SCH ×2 (09:16→20:54)
[2020-12-10] MEDS: INSULIN GLARGINE 100 UNITS/ML 10 ML VIAL SQ SCH ×2 (09:29→20:57)
[2020-12-10] MEDS: MIDAZOLAM 100MG-0.9% NS 100ML 100 ML IV SCH (10:00)
[2020-12-10] MEDS: LANSOPRAZOLE NG SCH ×2 (10:05)
[2020-12-10] MEDS: SODIUM BICARB NG SCH ×2 (10:05)
[2020-12-10] MEDS ORDERED: METOPROLOL TARTRATE 25 MG TAB PO SCH (11:15)
[2020-12-10] MEDS ORDERED: METOPROLOL TARTRATE 25 MG TAB ONE (15:24)
[2020-12-10] MEDS: ALPRAZOLAM 0.5 MG TABLET PO PRN (17:05)
[2020-12-10] MEDS: METOPROLOL TARTRATE 25 MG TAB PO SCH (20:54)
[2020-12-11] VITALS (51 sets, daily range): BP systolic 84–147; BP diastolic 44–87
[2020-12-11] MEDS: MEROPENEM 1 GM VIAL IVP SCH ×4 (00:05→23:30)
[2020-12-11] MEDS: SUCRALFATE 1 GM TABLET NG SCH ×4 (00:05→19:00)
[2020-12-11] MEDS: INSULIN HUMULIN R 100 UNIT/ML 3ML SQ SCH ×5 (05:18→17:26)
[2020-12-11] MEDS: FENTANYL 2500MCG+NS 250ML 250 ML IV SCH (06:12)
[2020-12-11] MEDS: MIDAZOLAM 100MG-0.9% NS 100ML 100 ML IV SCH ×2 (06:13→16:00)
[2020-12-11 06:18] LABS: BASOPHILS % (AUTO) 0.2 % (0.0-5.0); HEMATOCRIT 31.8 % (42-54); LYMPHOCYTES % (AUTO) 1.8 % (21.0-51.0); MEAN CORPUSCULAR HEMOGLOBIN 29.1 pg (27.0-33.0); MEAN CORPUSCULAR HGB CONC 28.6 g/dL (32.0-36.0); MEAN CORPUSCULAR VOLUME 101.6 fL (79-99); MONOCYTES % (AUTO) 3.5 % (3.0-13.0); NEUTROPHILS % (AUTO) 92.4 % (40.0-77.0); NUCLEATED RED BLOOD CELLS 0.5 % (0.0-0.19); PLATELET COUNT (AUTO) 492 K/uL (130-400); RED BLOOD CELL COUNT(AUTO) 3.13 MIL/uL (4.50-6.20); RED CELL DISTRIBUTION WIDTH 17.2 % (11.0-15.5); WHITE BLOOD COUNT (AUTO) 16.8 K/uL (4.8-10.8)
[2020-12-11 06:29] LABS: CREATININE 0.4 mg/dL (0.5-1.5); CRP QUANTITATIVE 12.4 mg/L (0.00-9.0); POTASSIUM 4.7 mmol/L (3.5-5.1)
[2020-12-11] MEDS: NOREPINEPHRIN 4MG/NS 250ML 250 ML IV SCH (07:50)
[2020-12-11 07:55] LABS: ABG BASE EXCESS 11.4 mmol/L (-2.0-3.0); ABG HCO3 40.6 mmol/L (21.0-28.0); ABG OXYGEN SATURATION 97.1 % (95.0-99.0); ABG PCO2 75 mmHg (35-48)
[2020-12-11] MEDS: POTASSIUM CHLORIDE 10% ELIXIR 20 MEQ/15 ML UDCUP NG SCH ×2 (07:55→20:30)
[2020-12-11] MEDS: METOPROLOL TARTRATE 25 MG TAB PO SCH ×2 (07:56→20:28)
[2020-12-11] MEDS: PRENATAL VITAMIN RX TABLET PO SCH (07:56)
[2020-12-11] MEDS: SOLU-MEDROL 40MG VIAL IVP SCH ×2 (07:57→20:28)
[2020-12-11] MEDS: QUETIAPINE FUMARATE 25 MG TAB PO SCH ×2 (07:57→20:39)
[2020-12-11] MEDS: ZINC SULFATE 220 CAPSULE PO SCH ×2 (07:57→20:39)
[2020-12-11] MEDS: ENOXAPARIN SODIUM 40 MG/0.4 ML SYRINGE SQ SCH ×2 (07:57→20:31)
[2020-12-11] MEDS: BALSAM PERU/CASTOR OIL 60 GM TUBE TP SCH ×3 (07:57→20:29)
[2020-12-11] MEDS: INSULIN GLARGINE 100 UNITS/ML 10 ML VIAL SQ SCH ×2 (07:59→20:29)
[2020-12-11] MEDS: SODIUM BICARB NG SCH ×2 (08:00)
[2020-12-11] MEDS: LANSOPRAZOLE NG SCH ×2 (08:00)
[2020-12-11] MEDS: MIDODRINE HCL 5 MG TABLET GT SCH ×3 (08:03→20:28)
[2020-12-11] MEDS: THIAMINE HCL 100 MG TABLET PO SCH ×2 (08:03→20:39)
[2020-12-11] MEDS: FUROSEMIDE 20MG VIAL IV SCH ×2 (08:06→20:28)
[2020-12-11] MEDS: DEXMEDETOMIDINE HCL 400 MCG in 0.9%NACL 100ML 100 ML IV PRN ×4 (08:45→16:45)
[2020-12-11] MEDS: ALPRAZOLAM 0.5 MG TABLET PO PRN (12:59)
[2020-12-12] VITALS (81 sets, daily range): BP systolic 52–159; BP diastolic 40–88
[2020-12-12] MEDS: SUCRALFATE 1 GM TABLET NG SCH ×4 (01:00→17:56)
[2020-12-12 07:10] LABS: ABG BASE EXCESS 14.1 mmol/L (-2.0-3.0); ABG HCO3 42.7 mmol/L (21.0-28.0); ABG OXYGEN SATURATION 97.2 % (95.0-99.0); ABG PCO2 71 mmHg (35-48)
[2020-12-12] MEDS: INSULIN HUMULIN R 100 UNIT/ML 3ML SQ SCH ×6 (07:15→20:14)
[2020-12-12 07:44] LABS: BASOPHILS % (AUTO) 0.1 % (0.0-5.0); EOSINOPHILS % (AUTO) 0.1 % (0.0-8.0); HEMATOCRIT 29.6 % (42-54); LYMPHOCYTES % (AUTO) 2.6 % (21.0-51.0); MEAN CORPUSCULAR HEMOGLOBIN 29.7 pg (27.0-33.0); MEAN CORPUSCULAR HGB CONC 31.1 g/dL (32.0-36.0); MEAN CORPUSCULAR VOLUME 95.5 fL (79-99); NEUTROPHILS % (AUTO) 91.2 % (40.0-77.0); NUCLEATED RED BLOOD CELLS 0.1 % (0.0-0.19); PLATELET COUNT (AUTO) 369 K/uL (130-400); WHITE BLOOD COUNT (AUTO) 15.7 K/uL (4.8-10.8)
[2020-12-12 08:03] LABS: CREATININE 0.4 mg/dL (0.5-1.5); CRP QUANTITATIVE 17.3 mg/L (0.00-9.0); POTASSIUM 4.4 mmol/L (3.5-5.1)
[2020-12-12] MEDS: THIAMINE HCL 100 MG TABLET PO SCH ×2 (08:27→20:19)
[2020-12-12] MEDS: MIDODRINE HCL 5 MG TABLET GT SCH ×3 (08:27→20:17)
[2020-12-12] MEDS: PRENATAL VITAMIN RX TABLET PO SCH (08:28)
[2020-12-12] MEDS: ENOXAPARIN SODIUM 40 MG/0.4 ML SYRINGE SQ SCH ×2 (08:28→20:16)
[2020-12-12] MEDS: POTASSIUM CHLORIDE 10% ELIXIR 20 MEQ/15 ML UDCUP NG SCH ×2 (08:28→20:18)
[2020-12-12] MEDS: SOLU-MEDROL 40MG VIAL IVP SCH ×2 (08:29→20:18)
[2020-12-12] MEDS: FUROSEMIDE 20MG VIAL IV SCH ×2 (08:29→20:18)
[2020-12-12] MEDS: QUETIAPINE FUMARATE 25 MG TAB PO SCH ×2 (08:29→20:18)
[2020-12-12] MEDS: METOPROLOL TARTRATE 25 MG TAB PO SCH ×2 (08:29→20:17)
[2020-12-12] MEDS: DEXMEDETOMIDINE HCL 400 MCG in 0.9%NACL 100ML 100 ML IV PRN ×4 (08:30→19:13)
[2020-12-12] MEDS: LANSOPRAZOLE NG SCH ×2 (08:31)
[2020-12-12] MEDS: BALSAM PERU/CASTOR OIL 60 GM TUBE TP SCH ×3 (08:31→20:20)
[2020-12-12] MEDS: SODIUM BICARB NG SCH ×2 (08:31)
[2020-12-12] MEDS: MEROPENEM 1 GM VIAL IVP SCH ×3 (08:31→20:27)
[2020-12-12] MEDS: ZINC SULFATE 220 CAPSULE PO SCH ×2 (08:32→20:27)
[2020-12-12] MEDS ORDERED: INSULIN GLARGINE 100 UNITS/ML 10 ML VIAL SQ SCH (11:15)
[2020-12-12] MEDS: FENTANYL 2500MCG+NS 250ML 250 ML IV SCH (15:10)
[2020-12-12] MEDS: CLONAZEPAM 1MG TAB PO SCH ×2 (17:32→20:17)
[2020-12-12] MEDS: MIDAZOLAM 100MG-0.9% NS 100ML 100 ML IV SCH (18:29)
[2020-12-12] MEDS: INSULIN GLARGINE 100 UNITS/ML 10 ML VIAL SQ SCH (20:15)
[2020-12-13] VITALS (82 sets, daily range): BP systolic 78–163; BP diastolic 28–93
[2020-12-13] MEDS: INSULIN HUMULIN R 100 UNIT/ML 3ML SQ SCH ×6 (00:57→20:44)
[2020-12-13] MEDS: SUCRALFATE 1 GM TABLET NG SCH ×4 (01:00→18:34)
[2020-12-13] MEDS: ALPRAZOLAM 0.5 MG TABLET PO PRN ×2 (04:44→10:59)
[2020-12-13 06:34] LABS: BASOPHILS % (AUTO) 0.2 % (0.0-5.0); EOSINOPHILS % (AUTO) 0.4 % (0.0-8.0); MEAN CORPUSCULAR HEMOGLOBIN 29.2 pg (27.0-33.0); MEAN CORPUSCULAR HGB CONC 30.6 g/dL (32.0-36.0); MEAN CORPUSCULAR VOLUME 95.4 fL (79-99); MONOCYTES % (AUTO) 7.4 % (3.0-13.0); NEUTROPHILS % (AUTO) 86.5 % (40.0-77.0); NUCLEATED RED BLOOD CELLS 0.2 % (0.0-0.19); PLATELET COUNT (AUTO) 457 K/uL (130-400); RED BLOOD CELL COUNT(AUTO) 3.46 MIL/uL (4.50-6.20); RED CELL DISTRIBUTION WIDTH 17.4 % (11.0-15.5); WHITE BLOOD COUNT (AUTO) 19.1 K/uL (4.8-10.8)
[2020-12-13 06:39] LABS: CREATININE 0.5 mg/dL (0.5-1.5); CRP QUANTITATIVE 14.9 mg/L (0.00-9.0); POTASSIUM 4.2 mmol/L (3.5-5.1)
[2020-12-13] MEDS: DEXMEDETOMIDINE HCL 400 MCG in 0.9%NACL 100ML 100 ML IV PRN ×3 (07:38→18:47)
[2020-12-13] MEDS: FENTANYL 2500MCG+NS 250ML 250 ML IV SCH (07:56)
[2020-12-13] MEDS: QUETIAPINE FUMARATE 25 MG TAB PO SCH ×2 (08:00→20:48)
[2020-12-13] MEDS: PRENATAL VITAMIN RX TABLET PO SCH (08:00)
[2020-12-13] MEDS: METOPROLOL TARTRATE 25 MG TAB PO SCH ×2 (08:00→20:47)
[2020-12-13] MEDS: SODIUM BICARB NG SCH ×2 (08:00)
[2020-12-13] MEDS: LANSOPRAZOLE NG SCH ×2 (08:00)
[2020-12-13] MEDS: MEROPENEM 1 GM VIAL IVP SCH ×2 (08:00→14:33)
[2020-12-13] MEDS: MIDODRINE HCL 5 MG TABLET GT SCH ×3 (08:00→20:45)
[2020-12-13] MEDS: ENOXAPARIN SODIUM 40 MG/0.4 ML SYRINGE SQ SCH ×2 (08:01→20:45)
[2020-12-13] MEDS: BALSAM PERU/CASTOR OIL 60 GM TUBE TP SCH ×3 (08:01→20:49)
[2020-12-13] MEDS: INSULIN GLARGINE 100 UNITS/ML 10 ML VIAL SQ SCH ×2 (08:10→20:48)
[2020-12-13] MEDS: THIAMINE HCL 100 MG TABLET PO SCH ×2 (08:12→20:52)
[2020-12-13] MEDS: ZINC SULFATE 220 CAPSULE PO SCH ×2 (08:12→20:46)
[2020-12-13] MEDS: POTASSIUM CHLORIDE 10% ELIXIR 20 MEQ/15 ML UDCUP NG SCH ×3 (08:13→20:46)
[2020-12-13] MEDS: FUROSEMIDE 20MG VIAL IV SCH ×2 (08:13→20:47)
[2020-12-13] MEDS: SOLU-MEDROL 40MG VIAL IVP SCH ×2 (08:38→20:47)
[2020-12-13] MEDS: CLONAZEPAM 1MG TAB PO SCH ×3 (08:39→16:59)
[2020-12-13 09:20] LABS: ABG HCO3 45.5 mmol/L (21.0-28.0); ABG OXYGEN SATURATION 94.6 % (95.0-99.0); ABG PCO2 70 mmHg (35-48)
[2020-12-13] MEDS ORDERED: METOPROLOL TARTRATE 1 MG/ML 5ML VIAL IV SCH (10:30)
[2020-12-13] MEDS: FENTANYL 50 MCG/HR PATCH TD SCH (10:59)
[2020-12-13] MEDS: MIDAZOLAM 100MG-0.9% NS 100ML 100 ML IV SCH (12:26)
[2020-12-13] MEDS: METOCLOPRAMIDE 10 MG/2 ML VIAL IVP SCH ×2 (14:32→20:52)
[2020-12-14] VITALS (59 sets, daily range): BP systolic 83–171; BP diastolic 51–109
[2020-12-14] MEDS: MEROPENEM 1 GM VIAL IVP SCH ×4 (00:24→23:20)
[2020-12-14] MEDS: INSULIN HUMULIN R 100 UNIT/ML 3ML SQ SCH ×6 (01:49→20:58)
[2020-12-14] MEDS: SUCRALFATE 1 GM TABLET NG SCH ×4 (01:50→20:56)
[2020-12-14] MEDS: METOCLOPRAMIDE 10 MG/2 ML VIAL IVP SCH ×3 (05:33→20:56)
[2020-12-14] MEDS: CLONAZEPAM 1MG TAB PO SCH ×2 (05:33→17:21)
[2020-12-14 07:43] LABS: ABG BASE EXCESS 13.2 mmol/L (-2.0-3.0); ABG HCO3 38.6 mmol/L (21.0-28.0); ABG OXYGEN SATURATION 94.1 % (95.0-99.0); ABG PCO2 54 mmHg (35-48)
[2020-12-14] MEDS: MIDODRINE HCL 5 MG TABLET GT SCH ×3 (09:12→20:43)
[2020-12-14] MEDS: QUETIAPINE FUMARATE 25 MG TAB PO SCH ×2 (09:12→20:43)
[2020-12-14] MEDS: THIAMINE HCL 100 MG TABLET PO SCH ×2 (09:12→20:44)
[2020-12-14] MEDS: SOLU-MEDROL 40MG VIAL IVP SCH ×2 (09:12→20:42)
[2020-12-14] MEDS: PRENATAL VITAMIN RX TABLET PO SCH (09:12)
[2020-12-14] MEDS: ZINC SULFATE 220 CAPSULE PO SCH ×2 (09:12→20:43)
[2020-12-14] MEDS: INSULIN GLARGINE 100 UNITS/ML 10 ML VIAL SQ SCH ×2 (09:14→20:59)
[2020-12-14] MEDS: POTASSIUM CHLORIDE 10% ELIXIR 20 MEQ/15 ML UDCUP NG SCH ×2 (09:14→20:57)
[2020-12-14] MEDS: DEXMEDETOMIDINE HCL 400 MCG in 0.9%NACL 100ML 100 ML IV PRN ×3 (09:18→16:39)
[2020-12-14] MEDS: FUROSEMIDE 20MG VIAL IV SCH ×2 (09:18→20:44)
[2020-12-14] MEDS: ENOXAPARIN SODIUM 40 MG/0.4 ML SYRINGE SQ SCH ×2 (09:19→20:42)
[2020-12-14] MEDS: METOPROLOL TARTRATE 25 MG TAB PO SCH ×2 (09:19→20:44)
[2020-12-14] MEDS: BALSAM PERU/CASTOR OIL 60 GM TUBE TP SCH ×3 (09:19→20:43)
[2020-12-14] MEDS: SODIUM BICARB NG SCH ×2 (09:20)
[2020-12-14] MEDS: LANSOPRAZOLE NG SCH ×2 (09:20)
[2020-12-14 10:11] LABS: BASOPHILS % (AUTO) 0.2 % (0.0-5.0); EOSINOPHILS % (AUTO) 1.6 % (0.0-8.0); HEMATOCRIT 32.6 % (42-54); LYMPHOCYTES % (AUTO) 10.7 % (21.0-51.0); MEAN CORPUSCULAR HEMOGLOBIN 29.8 pg (27.0-33.0); MEAN CORPUSCULAR HGB CONC 31.3 g/dL (32.0-36.0); MEAN CORPUSCULAR VOLUME 95.3 fL (79-99); MONOCYTES % (AUTO) 6.2 % (3.0-13.0); NEUTROPHILS % (AUTO) 79.6 % (40.0-77.0); NUCLEATED RED BLOOD CELLS 0.2 % (0.0-0.19); PLATELET COUNT (AUTO) 405 K/uL (130-400); RED BLOOD CELL COUNT(AUTO) 3.42 MIL/uL (4.50-6.20); WHITE BLOOD COUNT (AUTO) 17.4 K/uL (4.8-10.8)
[2020-12-14 10:34] LABS: CREATININE 0.4 mg/dL (0.5-1.5); CRP QUANTITATIVE 44.4 mg/L (0.00-9.0); POTASSIUM 3.8 mmol/L (3.5-5.1)
[2020-12-14] MEDS: ALPRAZOLAM 0.5 MG TABLET PO PRN (14:21)
[2020-12-14] MEDS: MIDAZOLAM 100MG-0.9% NS 100ML 100 ML IV SCH ×2 (15:09→23:21)
[2020-12-14] MEDS: NOREPINEPHRIN 4MG/NS 250ML 250 ML IV SCH (17:28)
[2020-12-14 19:17] LABS: CREATININE 0.4 mg/dL (0.5-1.5)
[2020-12-14] MEDS: DEXMEDETOMIDINE HCL IV SCH (23:22)
[2020-12-14] MEDS: [UNRECOGNIZED DRUG - OTHER] IV SCH (23:22)
[2020-12-15] VITALS (20 sets, daily range): BP systolic 87–164; BP diastolic 54–86
[2020-12-15] MEDS: SUCRALFATE 1 GM TABLET NG SCH ×4 (01:16→21:36)
[2020-12-15] MEDS: INSULIN HUMULIN R 100 UNIT/ML 3ML SQ SCH ×6 (01:19→21:47)
[2020-12-15] MEDS: ALPRAZOLAM 0.5 MG TABLET PO PRN ×2 (01:22→23:58)
[2020-12-15] MEDS: FENTANYL CITRATE PF 0.05 MG/ML 1,000 MCG in 0.9%NACL 100ML 100 ML IVPB PRN (02:22)
[2020-12-15] MEDS: DEXMEDETOMIDINE HCL IV SCH (03:00)
[2020-12-15] MEDS: [UNRECOGNIZED DRUG - OTHER] IV SCH (03:00)
[2020-12-15] MEDS: METOCLOPRAMIDE 10 MG/2 ML VIAL IVP SCH ×3 (04:48→21:41)
[2020-12-15] MEDS: CLONAZEPAM 1MG TAB PO SCH (04:48)
[2020-12-15 05:14] LABS: BASOPHILS % (AUTO) 0.2 % (0.0-5.0); HEMATOCRIT 28.7 % (42-54); LYMPHOCYTES % (AUTO) 3.1 % (21.0-51.0); MEAN CORPUSCULAR HEMOGLOBIN 28.7 pg (27.0-33.0); MEAN CORPUSCULAR VOLUME 92.6 fL (79-99); MONOCYTES % (AUTO) 2.8 % (3.0-13.0); NEUTROPHILS % (AUTO) 92.6 % (40.0-77.0); NUCLEATED RED BLOOD CELLS 0.2 % (0.0-0.19); PLATELET COUNT (AUTO) 248 K/uL (130-400); RED CELL DISTRIBUTION WIDTH 17.4 % (11.0-15.5); WHITE BLOOD COUNT (AUTO) 12.2 K/uL (4.8-10.8)
[2020-12-15 05:35] LABS: ALBUMIN 2.1 g/dL (3.5-5.0); BILIRUBIN,TOTAL 0.2 mg/dL (0.2-1.0); CREATININE 0.3 mg/dL (0.5-1.5); MAGNESIUM 2.7 mg/dL (1.80-2.40); PHOSPHORUS 2.7 mg/dL (2.5-4.9); POTASSIUM 4.4 mmol/L (3.5-5.1); TOTAL PROTEIN, SERUM 5.7 g/dL (6.0-8.3)
[2020-12-15 06:06] LABS: CRP QUANTITATIVE 28.5 mg/L (0.00-9.0)
[2020-12-15] MEDS ORDERED: DEXMEDETOMIDINE HCL 200 MCG/2 ML VIAL IV ONE (06:17)
[2020-12-15] MEDS ORDERED: 0.9%NACL 100ML 100 ML IV ONE (06:30)
[2020-12-15] MEDS: MEROPENEM 1 GM VIAL IVP SCH ×2 (07:54→15:53)
[2020-12-15] MEDS: INSULIN GLARGINE 100 UNITS/ML 10 ML VIAL SQ SCH ×2 (08:00→21:55)
[2020-12-15] MEDS: SOLU-MEDROL 40MG VIAL IVP SCH (08:21)
[2020-12-15] MEDS: MIDODRINE HCL 5 MG TABLET GT SCH ×3 (08:21→21:42)
[2020-12-15] MEDS: FUROSEMIDE 20MG VIAL IV SCH ×2 (08:21→21:42)
[2020-12-15] MEDS: THIAMINE HCL 100 MG TABLET PO SCH ×2 (08:22→21:41)
[2020-12-15] MEDS: METOPROLOL TARTRATE 25 MG TAB PO SCH ×2 (08:22→21:41)
[2020-12-15] MEDS: POTASSIUM CHLORIDE 10% ELIXIR 20 MEQ/15 ML UDCUP NG SCH ×2 (08:22→21:41)
[2020-12-15] MEDS: ZINC SULFATE 220 CAPSULE PO SCH ×2 (08:22→21:41)
[2020-12-15] MEDS: QUETIAPINE FUMARATE 25 MG TAB PO SCH ×2 (08:22→21:41)
[2020-12-15] MEDS: ENOXAPARIN SODIUM 40 MG/0.4 ML SYRINGE SQ SCH ×2 (08:23→21:43)
[2020-12-15] MEDS: PRENATAL VITAMIN RX TABLET PO SCH (08:24)
[2020-12-15] MEDS: LANSOPRAZOLE NG SCH ×2 (08:24)
[2020-12-15] MEDS: SODIUM BICARB NG SCH ×2 (08:24)
[2020-12-15] MEDS: BALSAM PERU/CASTOR OIL 60 GM TUBE TP SCH ×3 (08:24→21:36)
[2020-12-15] MEDS: MIDAZOLAM HCL 1 MG/ML 2ML VIAL IVP PRN (23:58)
[2020-12-16] VITALS (24 sets, daily range): BP systolic 86–166; BP diastolic 53–108
[2020-12-16] MEDS: SUCRALFATE 1 GM TABLET NG SCH ×5 (00:54→23:42)
[2020-12-16] MEDS: INSULIN HUMULIN R 100 UNIT/ML 3ML SQ SCH ×5 (00:56→21:04)
[2020-12-16] MEDS: DEXMEDETOMIDINE HCL IV SCH (04:24)
[2020-12-16] MEDS: [UNRECOGNIZED DRUG - OTHER] IV SCH (04:24)
[2020-12-16] MEDS: FENTANYL CITRATE PF 0.05 MG/ML 1,000 MCG in 0.9%NACL 100ML 100 ML IVPB PRN (04:50)
[2020-12-16 05:59] LABS: BASOPHILS % (AUTO) 0.2 % (0.0-5.0); EOSINOPHILS % (AUTO) 2.3 % (0.0-8.0); HEMATOCRIT 29.3 % (42-54); LYMPHOCYTES % (AUTO) 15.7 % (21.0-51.0); MEAN CORPUSCULAR HEMOGLOBIN 29.4 pg (27.0-33.0); MEAN CORPUSCULAR HGB CONC 31.1 g/dL (32.0-36.0); MEAN CORPUSCULAR VOLUME 94.5 fL (79-99); MONOCYTES % (AUTO) 6.6 % (3.0-13.0); NEUTROPHILS % (AUTO) 74.1 % (40.0-77.0); NUCLEATED RED BLOOD CELLS 0.2 % (0.0-0.19); PLATELET COUNT (AUTO) 317 K/uL (130-400); RED CELL DISTRIBUTION WIDTH 18.3 % (11.0-15.5); WHITE BLOOD COUNT (AUTO) 12.4 K/uL (4.8-10.8)
[2020-12-16 06:17] LABS: ALBUMIN 2.1 g/dL (3.5-5.0); BILIRUBIN,TOTAL 0.3 mg/dL (0.2-1.0); CREATININE 0.3 mg/dL (0.5-1.5); CRP QUANTITATIVE 28.7 mg/L (0.00-9.0); POTASSIUM 3.7 mmol/L (3.5-5.1); TOTAL PROTEIN, SERUM 5.5 g/dL (6.0-8.3)
[2020-12-16] MEDS: METOCLOPRAMIDE 10 MG/2 ML VIAL IVP SCH ×3 (06:28→21:08)
[2020-12-16] MEDS: ALPRAZOLAM 0.5 MG TABLET PO PRN (06:50)
[2020-12-16] MEDS: MIDAZOLAM HCL 1 MG/ML 2ML VIAL IVP PRN ×5 (06:50→22:09)
[2020-12-16 06:54] LABS: ABG BASE EXCESS 11.4 mmol/L (-2.0-3.0); ABG HCO3 39.8 mmol/L (21.0-28.0); ABG OXYGEN SATURATION 37.1 % (95.0-99.0); ABG PCO2 68 mmHg (35-48)
[2020-12-16 07:14] LABS: ABG BASE EXCESS 10.6 mmol/L (-2.0-3.0); ABG HCO3 34.7 mmol/L (21.0-28.0); ABG PCO2 44 mmHg (35-48)
[2020-12-16] MEDS: INSULIN GLARGINE 100 UNITS/ML 10 ML VIAL SQ SCH ×2 (07:30→21:01)
[2020-12-16] MEDS: PRENATAL VITAMIN RX TABLET PO SCH (08:48)
[2020-12-16] MEDS: ENOXAPARIN SODIUM 40 MG/0.4 ML SYRINGE SQ SCH ×2 (08:49→21:09)
[2020-12-16] MEDS: BALSAM PERU/CASTOR OIL 60 GM TUBE TP SCH ×3 (08:49→21:08)
[2020-12-16] MEDS: SOLU-MEDROL 40MG VIAL IVP SCH (08:49)
[2020-12-16] MEDS: FUROSEMIDE 20MG VIAL IV SCH ×2 (08:52→21:08)
[2020-12-16] MEDS: ZINC SULFATE 220 CAPSULE PO SCH (10:19)
[2020-12-16] MEDS: LANSOPRAZOLE NG SCH ×2 (10:19)
[2020-12-16] MEDS: POTASSIUM CHLORIDE 10% ELIXIR 20 MEQ/15 ML UDCUP NG SCH ×2 (10:19→21:07)
[2020-12-16] MEDS: MIDODRINE HCL 5 MG TABLET GT SCH ×3 (10:19→23:42)
[2020-12-16] MEDS: THIAMINE HCL 100 MG TABLET PO SCH (10:19)
[2020-12-16] MEDS: QUETIAPINE FUMARATE 25 MG TAB PO SCH ×2 (10:19→21:07)
[2020-12-16] MEDS: SODIUM BICARB NG SCH ×2 (10:19)
[2020-12-16] MEDS: FENTANYL 50 MCG/HR PATCH TD SCH (10:28)
[2020-12-16] MEDS ORDERED: ALPRAZOLAM 0.25 MG TABLET PO PRN (12:45)
[2020-12-16] MEDS ORDERED: LORAZEPAM 2 MG/ML 1 ML VIAL IVP STA ×2 (14:55→20:03)
[2020-12-16] MEDS ORDERED: LORAZEPAM 2 MG/ML 1 ML VIAL ONE ×2 (14:57→20:05)
[2020-12-16] MEDS ORDERED: MIDAZOLAM HCL 1 MG/ML 2ML VIAL IVP ONE (15:00)
[2020-12-16] MEDS ORDERED: MIDAZOLAM HCL 1 MG/ML 2ML VIAL IVP SCH (15:00)
[2020-12-16] MEDS ORDERED: METOPROLOL TARTRATE 1 MG/ML 5ML VIAL IV ONE ×2 (16:35→17:20)
[2020-12-16] MEDS ORDERED: FENTANYL 2500MCG+NS 250ML 250 ML IV SCH (20:15)
[2020-12-16] MEDS ORDERED: ALPRAZOLAM 0.25 MG TABLET PO ONE (22:15)
[2020-12-16] MEDS ORDERED: ALPRAZOLAM 0.25 MG TABLET ONE (22:21)
[2020-12-17] VITALS (25 sets, daily range): BP systolic 93–156; BP diastolic 51–106
[2020-12-17] MEDS: INSULIN HUMULIN R 100 UNIT/ML 3ML SQ SCH ×6 (01:07→20:20)
[2020-12-17] MEDS: DEXMEDETOMIDINE HCL IV SCH (04:42)
[2020-12-17] MEDS: [UNRECOGNIZED DRUG - OTHER] IV SCH (04:42)
[2020-12-17] MEDS ORDERED: METOPROLOL TARTRATE 1 MG/ML 5ML VIAL IV PRN (04:45)
[2020-12-17] MEDS ORDERED: NOREPINEPHRIN 4MG/NS 250ML 250 ML IV PRN (05:00)
[2020-12-17] MEDS: METOCLOPRAMIDE 10 MG/2 ML VIAL IVP SCH ×3 (05:06→21:07)
[2020-12-17] MEDS: SUCRALFATE 1 GM TABLET NG SCH ×3 (05:06→19:20)
[2020-12-17] MEDS ORDERED: ALPRAZOLAM 0.25 MG TABLET PO ONE (05:45)
[2020-12-17] MEDS ORDERED: ALPRAZOLAM 0.25 MG TABLET ONE (05:51)
[2020-12-17 06:16] LABS: BASOPHILS % (AUTO) 0.1 % (0.0-5.0); EOSINOPHILS % (AUTO) 0.8 % (0.0-8.0); HEMATOCRIT 32.2 % (42-54); LYMPHOCYTES % (AUTO) 9.2 % (21.0-51.0); MEAN CORPUSCULAR HEMOGLOBIN 29.2 pg (27.0-33.0); MEAN CORPUSCULAR HGB CONC 30.7 g/dL (32.0-36.0); MONOCYTES % (AUTO) 7.4 % (3.0-13.0); NEUTROPHILS % (AUTO) 81.3 % (40.0-77.0); NUCLEATED RED BLOOD CELLS 0.2 % (0.0-0.19); PLATELET COUNT (AUTO) 322 K/uL (130-400); RED BLOOD CELL COUNT(AUTO) 3.39 MIL/uL (4.50-6.20); RED CELL DISTRIBUTION WIDTH 18.3 % (11.0-15.5)
[2020-12-17 06:33] LABS: CREATININE 0.4 mg/dL (0.5-1.5); CRP QUANTITATIVE 57.1 mg/L (0.00-9.0); POTASSIUM 3.7 mmol/L (3.5-5.1)
[2020-12-17] MEDS: INSULIN GLARGINE 100 UNITS/ML 10 ML VIAL SQ SCH ×2 (08:15→20:21)
[2020-12-17] MEDS: QUETIAPINE FUMARATE 25 MG TAB PO SCH ×2 (08:27→20:11)
[2020-12-17] MEDS: SOLU-MEDROL 40MG VIAL IVP SCH (08:28)
[2020-12-17] MEDS: POTASSIUM CHLORIDE 10% ELIXIR 20 MEQ/15 ML UDCUP NG SCH ×2 (08:28→20:13)
[2020-12-17] MEDS: ENOXAPARIN SODIUM 40 MG/0.4 ML SYRINGE SQ SCH ×2 (08:30→20:14)
[2020-12-17] MEDS: FUROSEMIDE 20MG VIAL IV SCH ×2 (08:32→20:14)
[2020-12-17] MEDS: MIDODRINE HCL 5 MG TABLET GT SCH (08:32)
[2020-12-17] MEDS ORDERED: FENTANYL CITRATE PF 0.05 MG/ML 1,000 MCG in 0.9%NACL 100ML 100 ML IVPB STA (09:24)
[2020-12-17] MEDS: METOPROLOL TARTRATE 25 MG TAB PEG SCH ×2 (09:59→20:15)
[2020-12-17] MEDS: CLONAZEPAM 1MG TAB PEG SCH ×2 (09:59→20:13)
[2020-12-17] MEDS: PREDNISONE 20 MG TABLET PEG SCH (10:11)
[2020-12-17] MEDS: BALSAM PERU/CASTOR OIL 60 GM TUBE TP SCH ×3 (10:12→20:16)
[2020-12-17] MEDS: MIDAZOLAM HCL 1 MG/ML 2ML VIAL IVP PRN ×3 (12:46→21:45)
[2020-12-17] MEDS ORDERED: HYDROXYZINE 25 MG TABLET PO PRN (18:30)
[2020-12-17] MEDS ORDERED: MIDAZOLAM HCL 1 MG/ML 2ML VIAL ONE (18:37)
[2020-12-17 19:05] LABS: CREATININE 0.4 mg/dL (0.5-1.5); MAGNESIUM 2.1 mg/dL (1.80-2.40); POTASSIUM 4.1 mmol/L (3.5-5.1)
[2020-12-17] MEDS: HYDROXYZINE 25 MG TABLET PEG PRN (21:00)
[2020-12-17] MEDS: FENTANYL 2500MCG+NS 250ML 250 ML IV SCH (22:00)
[2020-12-18] VITALS (39 sets, daily range): BP systolic 70–172; BP diastolic 45–107
[2020-12-18] MEDS: MIDAZOLAM HCL 1 MG/ML 2ML VIAL IVP PRN ×2 (00:49→11:35)
[2020-12-18] MEDS ORDERED: ALPRAZOLAM 0.25 MG TABLET PO ONE (01:00)
[2020-12-18] MEDS ORDERED: ALPRAZOLAM 0.25 MG TABLET ONE (01:03)
[2020-12-18] MEDS: SUCRALFATE 1 GM TABLET NG SCH ×4 (02:24→18:14)
[2020-12-18] MEDS: HYDROXYZINE 25 MG TABLET PO SCH ×2 (03:00→11:36)
[2020-12-18] MEDS: INSULIN HUMULIN R 100 UNIT/ML 3ML SQ SCH ×6 (04:00→20:25)
[2020-12-18] MEDS: METOCLOPRAMIDE 10 MG/2 ML VIAL IVP SCH ×3 (06:00→21:09)
[2020-12-18 06:14] LABS: HEMATOCRIT 28.5 % (42-54); MEAN CORPUSCULAR HEMOGLOBIN 30.2 pg (27.0-33.0); MEAN CORPUSCULAR HGB CONC 32.3 g/dL (32.0-36.0); MEAN CORPUSCULAR VOLUME 93.4 fL (79-99); NEUTROPHILS % (AUTO) 90.2 % (40.0-77.0); PLATELET COUNT (AUTO) 261 K/uL (130-400); RED BLOOD CELL COUNT(AUTO) 3.05 MIL/uL (4.50-6.20); WHITE BLOOD COUNT (AUTO) 24.4 K/uL (4.8-10.8)
[2020-12-18 06:15] LABS: BASOPHILS % (AUTO) 0.2 % (0.0-5.0); EOSINOPHILS % (AUTO) 0.1 % (0.0-8.0); LYMPHOCYTES % (AUTO) 5.1 % (21.0-51.0); MONOCYTES % (AUTO) 3.7 % (3.0-13.0); NUCLEATED RED BLOOD CELLS 0.1 % (0.0-0.19)
[2020-12-18 06:28] LABS: ALBUMIN 2.1 g/dL (3.5-5.0); BILIRUBIN,TOTAL 0.4 mg/dL (0.2-1.0); CREATININE 0.3 mg/dL (0.5-1.5); CRP QUANTITATIVE 107.9 mg/L (0.00-9.0); POTASSIUM 3.8 mmol/L (3.5-5.1); TOTAL PROTEIN, SERUM 5.8 g/dL (6.0-8.3)
[2020-12-18] MEDS ORDERED: NOREPINEPHRIN 4MG/NS 250ML 250 ML IV PRN (07:00)
[2020-12-18] MEDS: QUETIAPINE FUMARATE 25 MG TAB PO SCH ×2 (08:24→20:15)
[2020-12-18] MEDS: POTASSIUM CHLORIDE 10% ELIXIR 20 MEQ/15 ML UDCUP NG SCH ×2 (08:26→20:16)
[2020-12-18] MEDS: METOPROLOL TARTRATE 25 MG TAB PEG SCH (08:27)
[2020-12-18] MEDS: CLONAZEPAM 1MG TAB PEG SCH ×2 (08:27→20:16)
[2020-12-18] MEDS: FUROSEMIDE 20MG VIAL IV SCH ×2 (08:27→20:15)
[2020-12-18] MEDS: PREDNISONE 20 MG TABLET PEG SCH (08:27)
[2020-12-18] MEDS: ENOXAPARIN SODIUM 40 MG/0.4 ML SYRINGE SQ SCH ×2 (08:28→20:16)
[2020-12-18] MEDS: INSULIN GLARGINE 100 UNITS/ML 10 ML VIAL SQ SCH ×2 (08:29→20:21)
[2020-12-18] MEDS: BALSAM PERU/CASTOR OIL 60 GM TUBE TP SCH ×3 (08:30→20:16)
[2020-12-18] MEDS ORDERED: PHARMACY COMMUNICATION MISC SCH (10:00)
[2020-12-18] MEDS: MEROPENEM 1 GM VIAL IVP SCH ×2 (11:19→16:34)
[2020-12-18] MEDS: LINEZOLID 600 MG/ISO-OSM 300 ML IV SCH ×2 (11:19→20:16)
[2020-12-18] MEDS: DEXMEDETOMIDINE HCL 1,000 MCG in 0.9% NACL 250ML 250 ML IV SCH ×2 (12:12→18:15)
[2020-12-18] MEDS: FENTANYL 2500MCG+NS 250ML 250 ML IV SCH (14:22)
[2020-12-18] MEDS: LACTATED RINGERS 1000ML 1,000 ML IV SCH ×2 (16:57→19:00)
[2020-12-18] MEDS: HYDROXYZINE 25 MG TABLET PEG PRN (21:33)
[2020-12-19] VITALS (32 sets, daily range): BP systolic 87–170; BP diastolic 46–100
[2020-12-19] MEDS: MEROPENEM 1 GM VIAL IVP SCH ×3 (00:55→16:42)
[2020-12-19] MEDS: SUCRALFATE 1 GM TABLET NG SCH ×4 (00:55→20:10)
[2020-12-19] MEDS: INSULIN HUMULIN R 100 UNIT/ML 3ML SQ SCH ×6 (00:56→20:00)
[2020-12-19] MEDS: MIDAZOLAM HCL 1 MG/ML 2ML VIAL IVP PRN ×2 (03:07→21:34)
[2020-12-19] MEDS: LACTATED RINGERS 1000ML 1,000 ML IV SCH (06:05)
[2020-12-19 06:18] LABS: BASOPHILS % (AUTO) 0.3 % (0.0-5.0); EOSINOPHILS % (AUTO) 1.2 % (0.0-8.0); HEMATOCRIT 28.8 % (42-54); LYMPHOCYTES % (AUTO) 10.6 % (21.0-51.0); MEAN CORPUSCULAR HGB CONC 30.6 g/dL (32.0-36.0); MONOCYTES % (AUTO) 6.2 % (3.0-13.0); NEUTROPHILS % (AUTO) 80.5 % (40.0-77.0); NUCLEATED RED BLOOD CELLS 0.1 % (0.0-0.19); PLATELET COUNT (AUTO) 236 K/uL (130-400); RED BLOOD CELL COUNT(AUTO) 3.03 MIL/uL (4.50-6.20); RED CELL DISTRIBUTION WIDTH 17.8 % (11.0-15.5); WHITE BLOOD COUNT (AUTO) 15.9 K/uL (4.8-10.8)
[2020-12-19] MEDS: METOCLOPRAMIDE 10 MG/2 ML VIAL IVP SCH ×3 (06:29→20:09)
[2020-12-19 06:36] LABS: CREATININE 0.3 mg/dL (0.5-1.5); MAGNESIUM 1.7 mg/dL (1.80-2.40); PHOSPHORUS 3.4 mg/dL (2.5-4.9)
[2020-12-19] MEDS: DEXMEDETOMIDINE HCL 1,000 MCG in 0.9% NACL 250ML 250 ML IV SCH ×3 (06:45→20:20)
[2020-12-19] MEDS: INSULIN GLARGINE 100 UNITS/ML 10 ML VIAL SQ SCH ×2 (07:21→20:21)
[2020-12-19 07:33] LABS: ABG BASE EXCESS 5.3 mmol/L (-2.0-3.0); ABG HCO3 32.6 mmol/L (21.0-28.0); ABG OXYGEN SATURATION 92.6 % (95.0-99.0); ABG PCO2 59 mmHg (35-48)
[2020-12-19] MEDS: FUROSEMIDE 20MG VIAL IV SCH ×2 (08:32→20:19)
[2020-12-19] MEDS: LINEZOLID 600 MG/ISO-OSM 300 ML IV SCH ×2 (08:32→20:09)
[2020-12-19] MEDS: PREDNISONE 20 MG TABLET PEG SCH (08:33)
[2020-12-19] MEDS: QUETIAPINE FUMARATE 25 MG TAB PO SCH ×2 (08:33→20:09)
[2020-12-19] MEDS: POTASSIUM CHLORIDE 10% ELIXIR 20 MEQ/15 ML UDCUP NG SCH ×2 (08:33→20:10)
[2020-12-19] MEDS: CLONAZEPAM 1MG TAB PEG SCH ×2 (08:33→20:09)
[2020-12-19] MEDS: METOPROLOL TARTRATE 25 MG TAB GT SCH ×2 (08:33→20:10)
[2020-12-19] MEDS: BALSAM PERU/CASTOR OIL 60 GM TUBE TP SCH ×2 (08:34→13:06)
[2020-12-19] MEDS: ENOXAPARIN SODIUM 40 MG/0.4 ML SYRINGE SQ SCH ×2 (08:35→20:15)
[2020-12-19] MEDS: FENTANYL 2500MCG+NS 250ML 250 ML IV SCH (13:26)
[2020-12-20] VITALS (26 sets, daily range): BP systolic 68–164; BP diastolic 44–100
[2020-12-20] MEDS: MEROPENEM 1 GM VIAL IVP SCH ×3 (00:57→17:08)
[2020-12-20] MEDS: HYDROXYZINE 25 MG TABLET PEG PRN (00:58)
[2020-12-20] MEDS: SUCRALFATE 1 GM TABLET NG SCH ×4 (00:58→17:08)
[2020-12-20] MEDS: INSULIN HUMULIN R 100 UNIT/ML 3ML SQ SCH ×6 (01:04→20:00)
[2020-12-20] MEDS ORDERED: IPRATROPIUM/ALBUTEROL SULFATE 3 ML SOLUTION IH ONE (02:57)
[2020-12-20] MEDS ORDERED: IPRATROPIUM/ALBUTEROL SULFATE 3 ML SOLUTION IH STA (02:58)
[2020-12-20] MEDS: MIDAZOLAM HCL 1 MG/ML 2ML VIAL IVP PRN ×2 (03:04→08:35)
[2020-12-20] MEDS ORDERED: HYDROMORPHONE 1 MG INJ IVP STA (03:14)
[2020-12-20] MEDS ORDERED: HYDROMORPHONE 1 MG INJ ONE (03:27)
[2020-12-20] MEDS: METOCLOPRAMIDE 10 MG/2 ML VIAL IVP SCH ×3 (05:03→21:35)
[2020-12-20 05:48] LABS: BASOPHILS % (AUTO) 0.3 % (0.0-5.0); EOSINOPHILS % (AUTO) 0.7 % (0.0-8.0); HEMATOCRIT 32.2 % (42-54); LYMPHOCYTES % (AUTO) 5.8 % (21.0-51.0); MEAN CORPUSCULAR HGB CONC 31.1 g/dL (32.0-36.0); MEAN CORPUSCULAR VOLUME 93.3 fL (79-99); NUCLEATED RED BLOOD CELLS 0.1 % (0.0-0.19); PLATELET COUNT (AUTO) 317 K/uL (130-400); RED BLOOD CELL COUNT(AUTO) 3.45 MIL/uL (4.50-6.20); WHITE BLOOD COUNT (AUTO) 18.8 K/uL (4.8-10.8)
[2020-12-20 06:11] LABS: ALBUMIN 2.4 g/dL (3.5-5.0); BILIRUBIN,TOTAL 0.3 mg/dL (0.2-1.0); CREATININE 0.4 mg/dL (0.5-1.5); CRP QUANTITATIVE 57.4 mg/L (0.00-9.0); TOTAL PROTEIN, SERUM 6.2 g/dL (6.0-8.3)
[2020-12-20] MEDS: INSULIN GLARGINE 100 UNITS/ML 10 ML VIAL SQ SCH ×2 (08:30→21:33)
[2020-12-20] MEDS: POTASSIUM CHLORIDE 10% ELIXIR 20 MEQ/15 ML UDCUP NG SCH ×2 (08:31→20:28)
[2020-12-20] MEDS: QUETIAPINE FUMARATE 25 MG TAB PO SCH ×2 (08:31→20:28)
[2020-12-20] MEDS: METOPROLOL TARTRATE 25 MG TAB GT SCH ×2 (08:31→20:27)
[2020-12-20] MEDS: CLONAZEPAM 1MG TAB PEG SCH ×2 (08:31→20:28)
[2020-12-20] MEDS: ENOXAPARIN SODIUM 40 MG/0.4 ML SYRINGE SQ SCH ×2 (08:33→20:30)
[2020-12-20] MEDS: FUROSEMIDE 20MG VIAL IV SCH (08:33)
[2020-12-20] MEDS: PREDNISONE 20 MG TABLET PEG SCH (08:34)
[2020-12-20] MEDS: LINEZOLID 600 MG/ISO-OSM 300 ML IV SCH ×2 (09:14→20:19)
[2020-12-20] MEDS: FENTANYL 2500MCG+NS 250ML 250 ML IV SCH (13:55)
[2020-12-20] MEDS: DEXMEDETOMIDINE HCL 1,000 MCG in 0.9% NACL 250ML 250 ML IV SCH ×3 (15:16→20:20)
[2020-12-21] VITALS (24 sets, daily range): BP systolic 80–153; BP diastolic 46–100
[2020-12-21] MEDS: MEROPENEM 1 GM VIAL IVP SCH ×3 (00:48→17:29)
[2020-12-21] MEDS: SUCRALFATE 1 GM TABLET NG SCH ×2 (00:48→06:33)
[2020-12-21] MEDS: INSULIN HUMULIN R 100 UNIT/ML 3ML SQ SCH ×6 (01:18→20:00)
[2020-12-21] MEDS: DEXMEDETOMIDINE HCL 1,000 MCG in 0.9% NACL 250ML 250 ML IV SCH ×2 (04:02→10:18)
[2020-12-21 06:01] LABS: HEMATOCRIT 29.7 % (42-54); MEAN CORPUSCULAR HEMOGLOBIN 29.4 pg (27.0-33.0); MEAN CORPUSCULAR VOLUME 92.8 fL (79-99); WHITE BLOOD COUNT (AUTO) 14.5 K/uL (4.8-10.8)
[2020-12-21 06:02] LABS: BASOPHILS % (AUTO) 0.3 % (0.0-5.0); EOSINOPHILS % (AUTO) 2.3 % (0.0-8.0); LYMPHOCYTES % (AUTO) 9.8 % (21.0-51.0); MEAN CORPUSCULAR HGB CONC 31.6 g/dL (32.0-36.0); MONOCYTES % (AUTO) 5.5 % (3.0-13.0); NEUTROPHILS % (AUTO) 81.3 % (40.0-77.0); PLATELET COUNT (AUTO) 252 K/uL (130-400)
[2020-12-21 06:22] LABS: CREATININE 0.3 mg/dL (0.5-1.5); CRP QUANTITATIVE 52.6 mg/L (0.00-9.0); POTASSIUM 3.6 mmol/L (3.5-5.1)
[2020-12-21] MEDS: METOCLOPRAMIDE 10 MG/2 ML VIAL IVP SCH ×3 (06:33→21:22)
[2020-12-21] MEDS: ENOXAPARIN SODIUM 40 MG/0.4 ML SYRINGE SQ SCH ×2 (08:26→21:23)
[2020-12-21] MEDS: PREDNISONE 20 MG TABLET PEG SCH (08:26)
[2020-12-21] MEDS: CLONAZEPAM 1MG TAB PEG SCH ×2 (08:27→21:22)
[2020-12-21] MEDS: QUETIAPINE FUMARATE 25 MG TAB PO SCH ×2 (08:27→21:22)
[2020-12-21] MEDS: POTASSIUM CHLORIDE 10% ELIXIR 20 MEQ/15 ML UDCUP NG SCH ×2 (08:28→21:22)
[2020-12-21] MEDS: METOPROLOL TARTRATE 25 MG TAB GT SCH ×2 (08:39→10:02)
[2020-12-21] MEDS: INSULIN GLARGINE 100 UNITS/ML 10 ML VIAL SQ SCH ×2 (08:39→21:55)
[2020-12-21] MEDS: LINEZOLID 600 MG/ISO-OSM 300 ML IV SCH ×2 (10:03→21:23)
[2020-12-21] MEDS: FENTANYL 2500MCG+NS 250ML 250 ML IV SCH ×2 (10:20→19:31)
[2020-12-21] MEDS: MIDAZOLAM HCL 1 MG/ML 2ML VIAL IVP PRN ×2 (13:44→21:44)
[2020-12-21] MEDS: HYDROXYZINE 25 MG TABLET PEG PRN (14:20)
[2020-12-22] VITALS (35 sets, daily range): BP systolic 81–148; BP diastolic 42–103
[2020-12-22] MEDS ORDERED: NOREPINEPHRIN 8MG/250ML NS PMX 250 ML IV ONE (01:39)
[2020-12-22] MEDS: MEROPENEM 1 GM VIAL IVP SCH ×3 (02:31→16:19)
[2020-12-22] MEDS: INSULIN HUMULIN R 100 UNIT/ML 3ML SQ SCH ×5 (04:00→17:36)
[2020-12-22] MEDS: METOCLOPRAMIDE 10 MG/2 ML VIAL IVP SCH ×2 (05:12→13:07)
[2020-12-22 07:48] LABS: BASOPHILS % (AUTO) 0.2 % (0.0-5.0); HEMATOCRIT 33.2 % (42-54); LYMPHOCYTES % (AUTO) 6.5 % (21.0-51.0); MEAN CORPUSCULAR HEMOGLOBIN 29.1 pg (27.0-33.0); MEAN CORPUSCULAR HGB CONC 30.4 g/dL (32.0-36.0); MEAN CORPUSCULAR VOLUME 95.7 fL (79-99); MONOCYTES % (AUTO) 5.9 % (3.0-13.0); NEUTROPHILS % (AUTO) 84.6 % (40.0-77.0); NUCLEATED RED BLOOD CELLS 0.1 % (0.0-0.19); PLATELET COUNT (AUTO) 234 K/uL (130-400); RED BLOOD CELL COUNT(AUTO) 3.47 MIL/uL (4.50-6.20); RED CELL DISTRIBUTION WIDTH 17.2 % (11.0-15.5); WHITE BLOOD COUNT (AUTO) 19.3 K/uL (4.8-10.8)
[2020-12-22 07:55] LABS: CREATININE 0.3 mg/dL (0.5-1.5)
[2020-12-22] MEDS: CLONAZEPAM 1MG TAB PEG SCH ×2 (08:38→19:49)
[2020-12-22] MEDS: METOPROLOL TARTRATE 25 MG TAB GT SCH (08:38)
[2020-12-22] MEDS: QUETIAPINE FUMARATE 25 MG TAB PO SCH ×2 (08:38→19:48)
[2020-12-22] MEDS: PREDNISONE 20 MG TABLET PEG SCH (08:38)
[2020-12-22] MEDS: POTASSIUM CHLORIDE 10% ELIXIR 20 MEQ/15 ML UDCUP NG SCH ×2 (08:39→19:49)
[2020-12-22] MEDS: ENOXAPARIN SODIUM 40 MG/0.4 ML SYRINGE SQ SCH ×2 (08:40→19:50)
[2020-12-22] MEDS: INSULIN GLARGINE 100 UNITS/ML 10 ML VIAL SQ SCH ×2 (08:41→21:00)
[2020-12-22] MEDS: LINEZOLID 600 MG/ISO-OSM 300 ML IV SCH ×2 (08:43→21:00)
[2020-12-22] MEDS: MIDODRINE HCL 5 MG TABLET GT SCH ×3 (09:36→21:00)
[2020-12-22] MEDS: HYDROXYZINE 25 MG TABLET PO SCH ×2 (10:27→19:49)
[2020-12-22] MEDS: MIDAZOLAM HCL 1 MG/ML 2ML VIAL IVP PRN ×2 (10:28→19:50)
[2020-12-22] MEDS: LACTATED RINGERS 1000ML IV SCH (10:50)
[2020-12-22] MEDS: DEXMEDETOMIDINE HCL 400 MCG in 0.9%NACL 100ML 100 ML IV SCH ×2 (15:35→18:45)
[2020-12-23] VITALS (37 sets, daily range): BP systolic 84–155; BP diastolic 56–99
[2020-12-23] MEDS: MEROPENEM 1 GM VIAL IVP SCH ×3 (01:19→16:27)
[2020-12-23] MEDS: METOCLOPRAMIDE 10 MG/2 ML VIAL IVP SCH ×2 (01:20→06:17)
[2020-12-23] MEDS: MIDAZOLAM HCL 1 MG/ML 2ML VIAL IVP PRN ×2 (01:27→21:07)
[2020-12-23 06:11] LABS: BASOPHILS % (AUTO) 0.2 % (0.0-5.0); EOSINOPHILS % (AUTO) 2.6 % (0.0-8.0); HEMATOCRIT 32.3 % (42-54); LYMPHOCYTES % (AUTO) 9.1 % (21.0-51.0); MEAN CORPUSCULAR HEMOGLOBIN 29.6 pg (27.0-33.0); MEAN CORPUSCULAR VOLUME 95.6 fL (79-99); MONOCYTES % (AUTO) 6.4 % (3.0-13.0); PLATELET COUNT (AUTO) 259 K/uL (130-400); RED BLOOD CELL COUNT(AUTO) 3.38 MIL/uL (4.50-6.20); RED CELL DISTRIBUTION WIDTH 16.8 % (11.0-15.5)
[2020-12-23] MEDS: INSULIN HUMULIN R 100 UNIT/ML 3ML SQ SCH ×4 (06:18→18:14)
[2020-12-23] MEDS: INSULIN GLARGINE 100 UNITS/ML 10 ML VIAL SQ SCH ×2 (06:19→20:13)
[2020-12-23 06:25] LABS: CREATININE 0.3 mg/dL (0.5-1.5); CRP QUANTITATIVE 51.8 mg/L (0.00-9.0); POTASSIUM 4.2 mmol/L (3.5-5.1)
[2020-12-23] MEDS: LACTATED RINGERS 1000ML IV SCH (07:20)
[2020-12-23] MEDS ORDERED: FENTANYL CITRATE PF 0.05 MG/ML 2,500 MCG in 0.9%NACL 100ML 250 ML IVPB SCH (07:30)
[2020-12-23] MEDS: PREDNISONE 20 MG TABLET PEG SCH (07:52)
[2020-12-23] MEDS: QUETIAPINE FUMARATE 25 MG TAB PO SCH ×2 (07:52→20:07)
[2020-12-23] MEDS: CLONAZEPAM 1MG TAB PEG SCH ×4 (07:52→21:07)
[2020-12-23] MEDS: POTASSIUM CHLORIDE 10% ELIXIR 20 MEQ/15 ML UDCUP NG SCH ×2 (07:52→09:00)
[2020-12-23] MEDS: LINEZOLID 600 MG/ISO-OSM 300 ML IV SCH ×2 (07:53→20:07)
[2020-12-23] MEDS: ENOXAPARIN SODIUM 40 MG/0.4 ML SYRINGE SQ SCH (07:53)
[2020-12-23] MEDS: MIDODRINE HCL 5 MG TABLET GT SCH ×3 (07:55→20:08)
[2020-12-23] MEDS ORDERED: FENTANYL 2500MCG+NS 250ML 250 ML IV SCH (08:00)
[2020-12-23] MEDS: ENOXAPARIN SODIUM 30 MG/0.3 ML SQ SCH ×2 (09:00→20:09)
[2020-12-23] MEDS: DEXMEDETOMIDINE HCL 400 MCG in 0.9%NACL 100ML 100 ML IV SCH ×2 (09:48→14:05)
[2020-12-23] MEDS: BUSPIRONE HCL 5 MG TABLET PO SCH ×2 (09:50→20:07)
[2020-12-23] MEDS: ACETAMINOPHEN 325 MG TAB GT SCH ×2 (12:08→18:05)
[2020-12-23] MEDS: MULTIVITAMIN TABLET PO SCH (12:09)
[2020-12-23] MEDS: GABAPENTIN 300 MG CAPSULE GT SCH ×2 (14:03→21:08)
[2020-12-23] MEDS: HYDROXYZINE 25 MG TABLET PEG PRN (20:07)
[2020-12-24] VITALS (24 sets, daily range): BP systolic 100–155; BP diastolic 42–92
[2020-12-24] MEDS: MEROPENEM 1 GM VIAL IVP SCH ×3 (01:24→17:13)
[2020-12-24] MEDS: ACETAMINOPHEN 325 MG TAB GT SCH ×4 (01:25→17:14)
[2020-12-24] MEDS: INSULIN HUMULIN R 100 UNIT/ML 3ML SQ SCH ×4 (01:37→17:33)
[2020-12-24] MEDS: MIDAZOLAM HCL 1 MG/ML 2ML VIAL IVP PRN ×2 (03:11→12:03)
[2020-12-24 04:51] LABS: HEMATOCRIT 31.7 % (42-54); MEAN CORPUSCULAR HEMOGLOBIN 29.2 pg (27.0-33.0); MEAN CORPUSCULAR VOLUME 97.5 fL (79-99); PLATELET COUNT (AUTO) 279 K/uL (130-400); RED BLOOD CELL COUNT(AUTO) 3.25 MIL/uL (4.50-6.20); RED CELL DISTRIBUTION WIDTH 16.8 % (11.0-15.5); WHITE BLOOD COUNT (AUTO) 13.3 K/uL (4.8-10.8)
[2020-12-24 05:01] LABS: CREATININE 0.3 mg/dL (0.5-1.5)
[2020-12-24 05:27] LABS: BAND NEUTROPHILS % (MANUAL) 2 % (0-2); BASOPHILS % (MANUAL) 1 % (0-2); LYMPHOCYTES % (MANUAL) 10 % (22-44); MONOCYTES % (MANUAL) 6 % (2-9); SEGMENTED NEUTROPHILS % 81 % (40-70)
[2020-12-24 05:28] LABS: MAN.DIFF COMMENT-IMPRESSION MANUAL DIFFERENTIAL; PLATELET MORPHOLOGY COMMENT ADEQUATE
[2020-12-24] MEDS: GABAPENTIN 300 MG CAPSULE GT SCH ×3 (06:17→23:33)
[2020-12-24] MEDS: CLONAZEPAM 1MG TAB PEG SCH ×3 (06:18→23:33)
[2020-12-24] MEDS: INSULIN GLARGINE 100 UNITS/ML 10 ML VIAL SQ SCH ×2 (06:20→21:45)
[2020-12-24] MEDS: POTASSIUM CHLORIDE 10% ELIXIR 20 MEQ/15 ML UDCUP NG SCH (08:53)
[2020-12-24] MEDS: MIDODRINE HCL 5 MG TABLET GT SCH (08:53)
[2020-12-24] MEDS: LINEZOLID 600 MG/ISO-OSM 300 ML IV SCH ×2 (08:55→21:45)
[2020-12-24] MEDS: QUETIAPINE FUMARATE 25 MG TAB PO SCH ×2 (08:55→21:45)
[2020-12-24] MEDS: BUSPIRONE HCL 5 MG TABLET PO SCH ×2 (08:55→21:45)
[2020-12-24] MEDS: ENOXAPARIN SODIUM 30 MG/0.3 ML SQ SCH (08:55)
[2020-12-24] MEDS: MULTIVITAMIN TABLET PO SCH (08:55)
[2020-12-24] MEDS: PREDNISONE 20 MG TABLET PEG SCH (08:55)
[2020-12-24] MEDS: LANSOPRAZOLE 15 MG SOLU TAB PEG SCH (09:02)
[2020-12-24] MEDS: HYDROXYZINE 25 MG TABLET PEG SCH ×2 (12:03→17:14)
[2020-12-24] MEDS: APIXABAN 5 MG TABLET PO SCH (21:45)
[2020-12-25] VITALS (21 sets, daily range): BP systolic 87–141; BP diastolic 52–90
[2020-12-25] MEDS: HYDROXYZINE 25 MG TABLET PEG SCH ×5 (00:44→23:48)
[2020-12-25] MEDS: MEROPENEM 1 GM VIAL IVP SCH ×3 (00:45→17:03)
[2020-12-25] MEDS: ACETAMINOPHEN 325 MG TAB GT SCH ×2 (00:45→05:38)
[2020-12-25] MEDS: INSULIN HUMULIN R 100 UNIT/ML 3ML SQ SCH ×5 (00:46→23:50)
[2020-12-25 03:38] LABS: BASOPHILS % (AUTO) 0.3 % (0.0-5.0); HEMATOCRIT 27.8 % (42-54); MEAN CORPUSCULAR HEMOGLOBIN 29.5 pg (27.0-33.0); MEAN CORPUSCULAR HGB CONC 30.9 g/dL (32.0-36.0); MEAN CORPUSCULAR VOLUME 95.2 fL (79-99); MONOCYTES % (AUTO) 7.4 % (3.0-13.0); NEUTROPHILS % (AUTO) 77.6 % (40.0-77.0); PLATELET COUNT (AUTO) 266 K/uL (130-400); RED BLOOD CELL COUNT(AUTO) 2.92 MIL/uL (4.50-6.20); RED CELL DISTRIBUTION WIDTH 16.9 % (11.0-15.5); WHITE BLOOD COUNT (AUTO) 10.5 K/uL (4.8-10.8)
[2020-12-25 03:47] LABS: CREATININE 0.4 mg/dL (0.5-1.5); POTASSIUM 3.7 mmol/L (3.5-5.1)
[2020-12-25] MEDS: GABAPENTIN 300 MG CAPSULE GT SCH ×3 (05:39→21:35)
[2020-12-25] MEDS: CLONAZEPAM 1MG TAB PEG SCH ×3 (05:39→21:37)
[2020-12-25] MEDS: MULTIVITAMIN TABLET PO SCH (08:27)
[2020-12-25] MEDS: BUSPIRONE HCL 5 MG TABLET PO SCH ×2 (08:27→21:37)
[2020-12-25] MEDS: LINEZOLID 600 MG/ISO-OSM 300 ML IV SCH ×2 (08:27→21:38)
[2020-12-25] MEDS: QUETIAPINE FUMARATE 25 MG TAB PO SCH ×2 (08:28→21:35)
[2020-12-25] MEDS: APIXABAN 5 MG TABLET PO SCH ×2 (08:28→21:36)
[2020-12-25] MEDS: LANSOPRAZOLE 15 MG SOLU TAB PEG SCH (08:31)
[2020-12-25] MEDS: INSULIN GLARGINE 100 UNITS/ML 10 ML VIAL SQ SCH ×2 (08:31→21:40)
[2020-12-25] MEDS: PREDNISONE 20 MG TABLET PEG SCH (10:19)
[2020-12-25] MEDS: FENTANYL CITRATE PF 50 MCG/1 ML 2ML VIAL IVP PRN (18:09)
[2020-12-25] MEDS: ACETAMINOPHEN 500 MG TABLET PO SCH (21:37)
[2020-12-26] VITALS (20 sets, daily range): BP systolic 84–142; BP diastolic 42–91
[2020-12-26] MEDS: MEROPENEM 1 GM VIAL IVP SCH ×3 (00:40→16:52)
[2020-12-26] MEDS: MIDAZOLAM HCL 1 MG/ML 2ML VIAL IVP PRN ×2 (01:20→12:35)
[2020-12-26] MEDS: FENTANYL CITRATE PF 50 MCG/1 ML 2ML VIAL IVP PRN ×2 (01:21→08:35)
[2020-12-26 03:40] LABS: BASOPHILS % (AUTO) 0.2 % (0.0-5.0); HEMATOCRIT 29.6 % (42-54); LYMPHOCYTES % (AUTO) 11.6 % (21.0-51.0); MEAN CORPUSCULAR HEMOGLOBIN 28.7 pg (27.0-33.0); MEAN CORPUSCULAR HGB CONC 30.1 g/dL (32.0-36.0); MEAN CORPUSCULAR VOLUME 95.5 fL (79-99); NEUTROPHILS % (AUTO) 80.7 % (40.0-77.0); PLATELET COUNT (AUTO) 297 K/uL (130-400); RED CELL DISTRIBUTION WIDTH 17.2 % (11.0-15.5); WHITE BLOOD COUNT (AUTO) 13.6 K/uL (4.8-10.8)
[2020-12-26 03:49] LABS: CREATININE 0.4 mg/dL (0.5-1.5); POTASSIUM 3.7 mmol/L (3.5-5.1)
[2020-12-26] MEDS: ACETAMINOPHEN 500 MG TABLET PO SCH ×3 (05:36→21:56)
[2020-12-26] MEDS: GABAPENTIN 300 MG CAPSULE GT SCH ×2 (05:36→14:53)
[2020-12-26] MEDS: HYDROXYZINE 25 MG TABLET PEG SCH ×3 (05:37→18:13)
[2020-12-26] MEDS: CLONAZEPAM 1MG TAB PEG SCH ×3 (05:37→21:56)
[2020-12-26] MEDS: INSULIN HUMULIN R 100 UNIT/ML 3ML SQ SCH ×3 (05:41→18:15)
[2020-12-26] MEDS: INSULIN GLARGINE 100 UNITS/ML 10 ML VIAL SQ SCH ×2 (07:37→21:58)
[2020-12-26] MEDS: LINEZOLID 600 MG/ISO-OSM 300 ML IV SCH ×2 (08:35→21:53)
[2020-12-26] MEDS: QUETIAPINE FUMARATE 25 MG TAB PO SCH ×2 (08:35→21:54)
[2020-12-26] MEDS: PREDNISONE 20 MG TABLET PEG SCH (08:35)
[2020-12-26] MEDS: THIAMINE HCL 100 MG/ML 2ML VIAL IVP SCH (08:35)
[2020-12-26] MEDS: MAGNESIUM OXIDE 400 MG TABLET PO SCH (08:35)
[2020-12-26] MEDS: BUSPIRONE HCL 5 MG TABLET PO SCH ×2 (08:36→21:54)
[2020-12-26] MEDS: MULTIVITAMIN TABLET PO SCH (08:36)
[2020-12-26] MEDS: ZINC SULFATE 220 CAPSULE PO SCH (08:36)
[2020-12-26] MEDS: APIXABAN 5 MG TABLET PO SCH ×2 (08:36→21:54)
[2020-12-26] MEDS: LANSOPRAZOLE 15 MG SOLU TAB PEG SCH (08:57)
[2020-12-26 13:46] LABS: ABG BASE EXCESS 6.5 mmol/L (-2.0-3.0); ABG HCO3 36.5 mmol/L (21.0-28.0); ABG OXYGEN SATURATION 99.5 % (95.0-99.0); ABG PCO2 80 mmHg (35-48)
[2020-12-26 13:57] LABS: CREATININE 0.4 mg/dL (0.5-1.5); POTASSIUM 4.3 mmol/L (3.5-5.1)
[2020-12-26] MEDS ORDERED: FENTANYL CITRATE PF 0.05 MG/ML 1,000 MCG in 0.9%NACL 100ML 100 ML IVPB SCH (14:00)
[2020-12-26] MEDS ORDERED: FENTANYL 2500MCG+NS 250ML 250 ML IV SCH (14:15)
[2020-12-26] MEDS: FUROSEMIDE 20MG VIAL IV SCH (14:53)
[2020-12-27] VITALS (34 sets, daily range): BP systolic 87–155; BP diastolic 47–104
[2020-12-27] MEDS: MEROPENEM 1 GM VIAL IVP SCH ×3 (00:37→18:13)
[2020-12-27] MEDS: HYDROXYZINE 25 MG TABLET PEG SCH ×4 (00:37→18:13)
[2020-12-27] MEDS: FUROSEMIDE 20MG VIAL IV SCH ×2 (02:00→13:46)
[2020-12-27] MEDS: MIDAZOLAM HCL 1 MG/ML 2ML VIAL IVP PRN (04:49)
[2020-12-27] MEDS: ACETAMINOPHEN 500 MG TABLET PO SCH ×3 (05:08→21:31)
[2020-12-27] MEDS: CLONAZEPAM 1MG TAB PEG SCH ×3 (05:08→21:28)
[2020-12-27 05:42] LABS: BASOPHILS % (AUTO) 0.2 % (0.0-5.0); EOSINOPHILS % (AUTO) 1.1 % (0.0-8.0); HEMATOCRIT 31.4 % (42-54); LYMPHOCYTES % (AUTO) 7.1 % (21.0-51.0); MEAN CORPUSCULAR HEMOGLOBIN 29.5 pg (27.0-33.0); MEAN CORPUSCULAR HGB CONC 30.6 g/dL (32.0-36.0); MEAN CORPUSCULAR VOLUME 96.6 fL (79-99); MONOCYTES % (AUTO) 5.2 % (3.0-13.0); NEUTROPHILS % (AUTO) 85.8 % (40.0-77.0); NUCLEATED RED BLOOD CELLS 0.1 % (0.0-0.19); PLATELET COUNT (AUTO) 309 K/uL (130-400); RED BLOOD CELL COUNT(AUTO) 3.25 MIL/uL (4.50-6.20); RED CELL DISTRIBUTION WIDTH 16.9 % (11.0-15.5); WHITE BLOOD COUNT (AUTO) 18.1 K/uL (4.8-10.8)
[2020-12-27 05:46] LABS: CREATININE 0.4 mg/dL (0.5-1.5); CRP QUANTITATIVE 49.8 mg/L (0.00-9.0); POTASSIUM 4.2 mmol/L (3.5-5.1)
[2020-12-27] MEDS: INSULIN GLARGINE 100 UNITS/ML 10 ML VIAL SQ SCH ×2 (07:27→21:33)
[2020-12-27] MEDS: INSULIN HUMULIN R 100 UNIT/ML 3ML SQ SCH ×4 (07:30→18:16)
[2020-12-27 08:13] LABS: ABG BASE EXCESS 16.4 mmol/L (-2.0-3.0); ABG HCO3 50.7 mmol/L (21.0-28.0); ABG OXYGEN SATURATION 86.9 % (95.0-99.0); ABG PCO2 125 mmHg (35-48)
[2020-12-27] MEDS: BUSPIRONE HCL 5 MG TABLET PO SCH ×2 (08:49→21:28)
[2020-12-27] MEDS: ZINC SULFATE 220 CAPSULE PO SCH (08:49)
[2020-12-27] MEDS: APIXABAN 5 MG TABLET PO SCH ×2 (08:49→21:28)
[2020-12-27] MEDS: MAGNESIUM OXIDE 400 MG TABLET PO SCH (08:49)
[2020-12-27] MEDS: MULTIVITAMIN TABLET PO SCH (08:49)
[2020-12-27] MEDS: PREDNISONE 20 MG TABLET PEG SCH (08:50)
[2020-12-27] MEDS: QUETIAPINE FUMARATE 25 MG TAB PO SCH ×2 (08:50→21:28)
[2020-12-27] MEDS: LANSOPRAZOLE 15 MG SOLU TAB PEG SCH (08:50)
[2020-12-27] MEDS: THIAMINE HCL 100 MG/ML 2ML VIAL IVP SCH (08:51)
[2020-12-27] MEDS: LINEZOLID 600 MG/ISO-OSM 300 ML IV SCH ×2 (09:28→21:28)
[2020-12-27 10:23] LABS: ABG BASE EXCESS 12.4 mmol/L (-2.0-3.0); ABG HCO3 42.5 mmol/L (21.0-28.0); ABG OXYGEN SATURATION 96.2 % (95.0-99.0); ABG PCO2 82 mmHg (35-48)
[2020-12-28] VITALS (42 sets, daily range): BP systolic 95–149; BP diastolic 58–89
[2020-12-28] MEDS: MEROPENEM 1 GM VIAL IVP SCH ×3 (00:46→17:42)
[2020-12-28] MEDS: HYDROXYZINE 25 MG TABLET PEG SCH ×4 (00:46→17:41)
[2020-12-28] MEDS: INSULIN HUMULIN R 100 UNIT/ML 3ML SQ SCH ×4 (00:48→17:49)
[2020-12-28] MEDS: FUROSEMIDE 20MG VIAL IV SCH ×2 (01:09→13:51)
[2020-12-28] MEDS: CLONAZEPAM 1MG TAB PEG SCH ×3 (05:44→21:54)
[2020-12-28] MEDS: ACETAMINOPHEN 500 MG TABLET PO SCH ×3 (05:45→21:56)
[2020-12-28] MEDS: INSULIN GLARGINE 100 UNITS/ML 10 ML VIAL SQ SCH ×2 (06:35→22:00)
[2020-12-28 06:44] LABS: BASOPHILS % (AUTO) 0.2 % (0.0-5.0); EOSINOPHILS % (AUTO) 1.5 % (0.0-8.0); HEMATOCRIT 31.6 % (42-54); LYMPHOCYTES % (AUTO) 9.3 % (21.0-51.0); MEAN CORPUSCULAR HEMOGLOBIN 28.8 pg (27.0-33.0); MEAN CORPUSCULAR HGB CONC 28.8 g/dL (32.0-36.0); MONOCYTES % (AUTO) 5.2 % (3.0-13.0); NEUTROPHILS % (AUTO) 82.8 % (40.0-77.0); NUCLEATED RED BLOOD CELLS 0.2 % (0.0-0.19); PLATELET COUNT (AUTO) 351 K/uL (130-400); RED BLOOD CELL COUNT(AUTO) 3.16 MIL/uL (4.50-6.20); WHITE BLOOD COUNT (AUTO) 12.3 K/uL (4.8-10.8)
[2020-12-28 07:14] LABS: CREATININE 0.4 mg/dL (0.5-1.5); CRP QUANTITATIVE 69.8 mg/L (0.00-9.0); POTASSIUM 3.9 mmol/L (3.5-5.1)
[2020-12-28 07:21] LABS: ABG BASE EXCESS 14.5 mmol/L (-2.0-3.0); ABG HCO3 43.6 mmol/L (21.0-28.0); ABG OXYGEN SATURATION 96.6 % (95.0-99.0); ABG PCO2 74 mmHg (35-48)
[2020-12-28] MEDS: LINEZOLID 600 MG/ISO-OSM 300 ML IV SCH ×2 (09:41→21:57)
[2020-12-28] MEDS: ZINC SULFATE 220 CAPSULE PO SCH (09:42)
[2020-12-28] MEDS: PREDNISONE 20 MG TABLET PEG SCH (09:42)
[2020-12-28] MEDS: APIXABAN 5 MG TABLET PO SCH ×2 (09:42→21:55)
[2020-12-28] MEDS: MULTIVITAMIN TABLET PO SCH (09:42)
[2020-12-28] MEDS: QUETIAPINE FUMARATE 25 MG TAB PO SCH ×2 (09:43→21:54)
[2020-12-28] MEDS: THIAMINE HCL 100 MG/ML 2ML VIAL IVP SCH (09:43)
[2020-12-28] MEDS: BUSPIRONE HCL 5 MG TABLET PO SCH ×2 (09:43→21:54)
[2020-12-28] MEDS: MAGNESIUM OXIDE 400 MG TABLET PO SCH (10:03)
[2020-12-28] MEDS: LANSOPRAZOLE 15 MG SOLU TAB PEG SCH (10:03)
[2020-12-28] MEDS: MIDAZOLAM HCL 1 MG/ML 2ML VIAL IVP PRN (12:43)
[2020-12-28] MEDS ORDERED: PHARMACY COMMUNICATION MISC SCH (12:45)
[2020-12-28] MEDS: IPRATROPIUM/ALBUTEROL SULFATE 3 ML SOLUTION IH SCH ×2 (13:00→18:30)
[2020-12-28] MEDS: SODIUM CHLORIDE 3% FOR INHALATION 4 ML/AMP VIAL.NEB IH PRN (18:31)
[2020-12-29] VITALS (22 sets, daily range): BP systolic 106–132; BP diastolic 62–79
[2020-12-29] MEDS: IPRATROPIUM/ALBUTEROL SULFATE 3 ML SOLUTION IH SCH ×4 (00:06→18:15)
[2020-12-29] MEDS: SODIUM CHLORIDE 3% FOR INHALATION 4 ML/AMP VIAL.NEB IH PRN ×3 (00:06→11:15)
[2020-12-29] MEDS: MEROPENEM 1 GM VIAL IVP SCH ×3 (01:01→17:59)
[2020-12-29] MEDS: HYDROXYZINE 25 MG TABLET PEG SCH ×4 (01:01→17:59)
[2020-12-29] MEDS: FUROSEMIDE 20MG VIAL IV SCH ×2 (01:01→12:52)
[2020-12-29] MEDS: INSULIN HUMULIN R 100 UNIT/ML 3ML SQ SCH ×4 (01:03→18:00)
[2020-12-29] MEDS: CLONAZEPAM 1MG TAB PEG SCH ×3 (05:18→20:53)
[2020-12-29] MEDS: ACETAMINOPHEN 500 MG TABLET PO SCH ×3 (05:18→20:54)
[2020-12-29 05:50] LABS: BASOPHILS % (AUTO) 0.2 % (0.0-5.0); EOSINOPHILS % (AUTO) 1.3 % (0.0-8.0); HEMATOCRIT 28.9 % (42-54); LYMPHOCYTES % (AUTO) 8.9 % (21.0-51.0); MEAN CORPUSCULAR HEMOGLOBIN 29.8 pg (27.0-33.0); MEAN CORPUSCULAR HGB CONC 31.1 g/dL (32.0-36.0); MEAN CORPUSCULAR VOLUME 95.7 fL (79-99); MONOCYTES % (AUTO) 5.4 % (3.0-13.0); NEUTROPHILS % (AUTO) 83.7 % (40.0-77.0); PLATELET COUNT (AUTO) 328 K/uL (130-400); RED BLOOD CELL COUNT(AUTO) 3.02 MIL/uL (4.50-6.20); RED CELL DISTRIBUTION WIDTH 16.9 % (11.0-15.5); WHITE BLOOD COUNT (AUTO) 15.6 K/uL (4.8-10.8)
[2020-12-29 06:07] LABS: CREATININE 0.4 mg/dL (0.5-1.5); MAGNESIUM 2.2 mg/dL (1.80-2.40); POTASSIUM 3.7 mmol/L (3.5-5.1)
[2020-12-29 07:13] LABS: ABG BASE EXCESS 15.6 mmol/L (-2.0-3.0); ABG HCO3 44.2 mmol/L (21.0-28.0); ABG OXYGEN SATURATION 97.1 % (95.0-99.0); ABG PCO2 71 mmHg (35-48)
[2020-12-29] MEDS: INSULIN GLARGINE 100 UNITS/ML 10 ML VIAL SQ SCH ×2 (07:30→20:50)
[2020-12-29] MEDS: THIAMINE HCL 100 MG/ML 2ML VIAL IVP SCH (08:52)
[2020-12-29] MEDS: LINEZOLID 600 MG/ISO-OSM 300 ML IV SCH ×2 (08:52→20:41)
[2020-12-29] MEDS: MULTIVITAMIN TABLET PO SCH (08:53)
[2020-12-29] MEDS: MAGNESIUM OXIDE 400 MG TABLET PO SCH (08:53)
[2020-12-29] MEDS: LANSOPRAZOLE 15 MG SOLU TAB PEG SCH (08:53)
[2020-12-29] MEDS: PREDNISONE 20 MG TABLET PEG SCH (08:53)
[2020-12-29] MEDS: APIXABAN 5 MG TABLET PO SCH ×2 (08:53→20:41)
[2020-12-29] MEDS: QUETIAPINE FUMARATE 25 MG TAB PO SCH ×2 (08:53→20:41)
[2020-12-29] MEDS: BUSPIRONE HCL 5 MG TABLET PO SCH ×2 (08:53→20:41)
[2020-12-29] MEDS: ZINC SULFATE 220 CAPSULE PO SCH (08:54)
[2020-12-30] VITALS (19 sets, daily range): BP systolic 107–149; BP diastolic 62–82
[2020-12-30] MEDS: IPRATROPIUM/ALBUTEROL SULFATE 3 ML SOLUTION IH SCH ×4 (00:43→19:15)
[2020-12-30] MEDS: HYDROXYZINE 25 MG TABLET PEG SCH ×4 (00:46→17:14)
[2020-12-30] MEDS: INSULIN HUMULIN R 100 UNIT/ML 3ML SQ SCH ×4 (00:52→18:10)
[2020-12-30] MEDS: MEROPENEM 1 GM VIAL IVP SCH ×3 (00:59→17:14)
[2020-12-30] MEDS: FUROSEMIDE 20MG VIAL IV SCH ×2 (01:09→13:53)
[2020-12-30 06:08] LABS: BASOPHILS % (AUTO) 0.2 % (0.0-5.0); EOSINOPHILS % (AUTO) 2.2 % (0.0-8.0); HEMATOCRIT 31.1 % (42-54); LYMPHOCYTES % (AUTO) 10.8 % (21.0-51.0); MEAN CORPUSCULAR HGB CONC 30.5 g/dL (32.0-36.0); MEAN CORPUSCULAR VOLUME 94.8 fL (79-99); MONOCYTES % (AUTO) 6.2 % (3.0-13.0); NEUTROPHILS % (AUTO) 79.9 % (40.0-77.0); PLATELET COUNT (AUTO) 386 K/uL (130-400); RED BLOOD CELL COUNT(AUTO) 3.28 MIL/uL (4.50-6.20); RED CELL DISTRIBUTION WIDTH 16.5 % (11.0-15.5); WHITE BLOOD COUNT (AUTO) 12.1 K/uL (4.8-10.8)
[2020-12-30] MEDS: ACETAMINOPHEN 500 MG TABLET PO SCH ×3 (06:11→22:12)
[2020-12-30] MEDS: CLONAZEPAM 1MG TAB PEG SCH ×3 (06:11→22:12)
[2020-12-30 06:27] LABS: CREATININE 0.3 mg/dL (0.5-1.5); CRP QUANTITATIVE 44.2 mg/L (0.00-9.0); POTASSIUM 3.7 mmol/L (3.5-5.1)
[2020-12-30] MEDS: SODIUM CHLORIDE 3% FOR INHALATION 4 ML/AMP VIAL.NEB IH PRN ×2 (06:56→11:28)
[2020-12-30] MEDS: INSULIN GLARGINE 100 UNITS/ML 10 ML VIAL SQ SCH ×2 (07:30→20:34)
[2020-12-30] MEDS: LANSOPRAZOLE 15 MG SOLU TAB PEG SCH (09:32)
[2020-12-30] MEDS: LINEZOLID 600 MG/ISO-OSM 300 ML IV SCH ×2 (09:32→20:32)
[2020-12-30] MEDS: THIAMINE HCL 100 MG/ML 2ML VIAL IVP SCH (09:32)
[2020-12-30] MEDS: PREDNISONE 20 MG TABLET PEG SCH (09:32)
[2020-12-30] MEDS: BUSPIRONE HCL 5 MG TABLET PO SCH ×2 (09:33→20:32)
[2020-12-30] MEDS: MULTIVITAMIN TABLET PO SCH (09:34)
[2020-12-30] MEDS: MAGNESIUM OXIDE 400 MG TABLET PO SCH (09:34)
[2020-12-30] MEDS: APIXABAN 5 MG TABLET PO SCH ×2 (09:34→20:33)
[2020-12-30] MEDS: ZINC SULFATE 220 CAPSULE PO SCH (09:39)
[2020-12-30] MEDS: QUETIAPINE FUMARATE 25 MG TAB PO SCH ×2 (09:39→20:33)
[2020-12-30] MEDS ORDERED: LIDOCAINE HCL 2% VISCOUS 30 ML, MAG/ALUM/SIMETH 30ML 30 ML, BELLADONNA-PHENOBARB ELIXIR... PEG PRN ×3 (11:00)
[2020-12-30] MEDS: SUCRALFATE 1 GM TABLET PEG SCH ×3 (11:30→20:32)
[2020-12-30] MEDS ORDERED: LIDO 2% VISC 30ML+MAG/AL/SIMETH 30ML+DICYCLOMINE 20MG 10ML PO PRN ×3 (12:30)
[2020-12-30] MEDS ORDERED: COMPOUND PO MISCELLANEOUS 1 EACH MISC MISC PRN (12:30)
[2020-12-30] MEDS ORDERED: METOPROLOL TARTRATE 1 MG/ML 5ML VIAL IV ONE (16:56)
[2020-12-30] MEDS ORDERED: METOPROLOL TARTRATE 1 MG/ML 5ML VIAL IV PRN (17:00)
[2020-12-31] VITALS (22 sets, daily range): BP systolic 105–140; BP diastolic 65–92
[2020-12-31] MEDS: SODIUM CHLORIDE 3% FOR INHALATION 4 ML/AMP VIAL.NEB IH PRN (00:14)
[2020-12-31] MEDS: IPRATROPIUM/ALBUTEROL SULFATE 3 ML SOLUTION IH SCH ×4 (00:14→18:16)
[2020-12-31] MEDS: INSULIN HUMULIN R 100 UNIT/ML 3ML SQ SCH ×3 (00:24→18:05)
[2020-12-31] MEDS: HYDROXYZINE 25 MG TABLET PEG SCH ×4 (00:28→17:29)
[2020-12-31] MEDS: MORPHINE 4 MG SYG IV PRN ×3 (00:28→20:58)
[2020-12-31] MEDS: MEROPENEM 1 GM VIAL IVP SCH ×3 (02:20→17:29)
[2020-12-31] MEDS: FUROSEMIDE 20MG VIAL IV SCH (02:20)
[2020-12-31 06:11] LABS: CREATININE 0.3 mg/dL (0.5-1.5); CRP QUANTITATIVE 36.3 mg/L (0.00-9.0); POTASSIUM 3.8 mmol/L (3.5-5.1)
[2020-12-31] MEDS ORDERED: DEXTROSE 50%-WATER 50 ML DISP.SYRIN IV ONE (06:44)
[2020-12-31] MEDS: ACETAMINOPHEN 500 MG TABLET PO SCH ×2 (06:45→21:55)
[2020-12-31] MEDS: CLONAZEPAM 1MG TAB PEG SCH ×3 (06:45→21:53)
[2020-12-31] MEDS: INSULIN GLARGINE 100 UNITS/ML 10 ML VIAL SQ SCH ×2 (07:30→21:52)
[2020-12-31 07:37] LABS: ABG BASE EXCESS 15.9 mmol/L (-2.0-3.0); ABG HCO3 41.7 mmol/L (21.0-28.0); ABG OXYGEN SATURATION 94.7 % (95.0-99.0); ABG PCO2 53 mmHg (35-48)
[2020-12-31] MEDS: SUCRALFATE 1 GM TABLET PEG SCH ×4 (07:46→21:01)
[2020-12-31] MEDS: BUSPIRONE HCL 5 MG TABLET PO SCH ×2 (08:24→20:56)
[2020-12-31] MEDS: MULTIVITAMIN TABLET PO SCH (08:24)
[2020-12-31] MEDS: PREDNISONE 20 MG TABLET PEG SCH (08:24)
[2020-12-31] MEDS: MAGNESIUM OXIDE 400 MG TABLET PO SCH (08:24)
[2020-12-31] MEDS: ZINC SULFATE 220 CAPSULE PO SCH (08:24)
[2020-12-31] MEDS: LANSOPRAZOLE 15 MG SOLU TAB PEG SCH (08:24)
[2020-12-31] MEDS: APIXABAN 5 MG TABLET PO SCH ×2 (08:26→20:57)
[2020-12-31] MEDS: LINEZOLID 600 MG/ISO-OSM 300 ML IV SCH ×2 (08:27→20:56)
[2020-12-31] MEDS: THIAMINE HCL 100 MG/ML 2ML VIAL IVP SCH (08:27)
[2020-12-31] MEDS: QUETIAPINE FUMARATE 25 MG TAB PO SCH ×2 (08:27→20:56)
[2020-12-31] MEDS: FENTANYL CITRATE PF 50 MCG/1 ML 2ML VIAL IVP SCH (10:47)
[2020-12-31] MEDS ORDERED: FLUNISOLIDE 25 MCG/SPRAY 25 ML NASAL SPRY EN PRN (13:45)
[2020-12-31] MEDS ORDERED: ACETAZOLAMIDE SODIUM 500 MG VIAL IV SCH (15:00)
[2020-12-31] MEDS: FENTANYL CITRATE PF 50 MCG/1 ML 2ML VIAL IVP PRN ×2 (17:30→21:55)
[2021-01-01] VITALS (21 sets, daily range): BP systolic 104–144; BP diastolic 63–88
[2021-01-01] MEDS: IPRATROPIUM/ALBUTEROL SULFATE 3 ML SOLUTION IH SCH ×4 (00:04→18:30)
[2021-01-01] MEDS: SODIUM CHLORIDE 3% FOR INHALATION 4 ML/AMP VIAL.NEB IH PRN ×2 (00:05→12:37)
[2021-01-01] MEDS: INSULIN HUMULIN R 100 UNIT/ML 3ML SQ SCH ×4 (00:35→18:26)
[2021-01-01] MEDS: HYDROXYZINE 25 MG TABLET PEG SCH ×4 (00:36→17:56)
[2021-01-01] MEDS: MEROPENEM 1 GM VIAL IVP SCH (00:36)
[2021-01-01] MEDS: FENTANYL CITRATE PF 50 MCG/1 ML 2ML VIAL IVP PRN ×2 (00:36→10:26)
[2021-01-01 03:59] LABS: HEMATOCRIT 31.6 % (42-54); MEAN CORPUSCULAR HEMOGLOBIN 29.3 pg (27.0-33.0); MEAN CORPUSCULAR VOLUME 94.6 fL (79-99); PLATELET COUNT (AUTO) 436 K/uL (130-400); RED BLOOD CELL COUNT(AUTO) 3.34 MIL/uL (4.50-6.20); RED CELL DISTRIBUTION WIDTH 16.4 % (11.0-15.5); WHITE BLOOD COUNT (AUTO) 10.9 K/uL (4.8-10.8)
[2021-01-01 04:06] LABS: CREATININE 0.5 mg/dL (0.5-1.5); POTASSIUM 3.6 mmol/L (3.5-5.1)
[2021-01-01 05:57] LABS: EOSINOPHILS % (MANUAL) 3 % (1-6); LYMPHOCYTES % (MANUAL) 8 % (22-44); MAN.DIFF COMMENT-IMPRESSION MANUAL DIFFERENTIAL; MONOCYTES % (MANUAL) 10 % (2-9); SEGMENTED NEUTROPHILS % 79 % (40-70)
[2021-01-01 05:58] LABS: PLATELET MORPHOLOGY COMMENT ADEQUATE
[2021-01-01] MEDS: CLONAZEPAM 1MG TAB PEG SCH ×3 (06:15→21:58)
[2021-01-01] MEDS: ACETAMINOPHEN 500 MG TABLET PO SCH ×3 (06:15→21:57)
[2021-01-01] MEDS: MULTIVITAMIN TABLET PO SCH (08:02)
[2021-01-01] MEDS: PREDNISONE 20 MG TABLET PEG SCH (08:03)
[2021-01-01] MEDS: QUETIAPINE FUMARATE 25 MG TAB PO SCH ×2 (08:03→21:57)
[2021-01-01] MEDS: MAGNESIUM OXIDE 400 MG TABLET PO SCH (08:03)
[2021-01-01] MEDS: APIXABAN 5 MG TABLET PO SCH ×2 (08:03→21:58)
[2021-01-01] MEDS: SUCRALFATE 1 GM TABLET PEG SCH ×4 (08:03→21:58)
[2021-01-01] MEDS: ZINC SULFATE 220 CAPSULE PO SCH (08:03)
[2021-01-01] MEDS: THIAMINE HCL 100 MG/ML 2ML VIAL IVP SCH (08:04)
[2021-01-01] MEDS: BUSPIRONE HCL 5 MG TABLET PO SCH ×2 (09:08→21:58)
[2021-01-01] MEDS: LINEZOLID 600 MG/ISO-OSM 300 ML IV SCH (09:08)
[2021-01-01] MEDS: INSULIN GLARGINE 100 UNITS/ML 10 ML VIAL SQ SCH ×2 (09:09→22:22)
[2021-01-01] MEDS: LANSOPRAZOLE 15 MG SOLU TAB PEG SCH (09:10)
[2021-01-01] MEDS: FENTANYL CITRATE PF 50 MCG/1 ML 2ML VIAL IVP SCH (10:39)
[2021-01-02] VITALS (24 sets, daily range): BP systolic 102–145; BP diastolic 65–85
[2021-01-02] MEDS: IPRATROPIUM/ALBUTEROL SULFATE 3 ML SOLUTION IH SCH ×3 (00:11→11:44)
[2021-01-02] MEDS: TRAMADOL HCL 50 MG TABLET PEG PRN ×3 (01:00→16:55)
[2021-01-02] MEDS: HYDROXYZINE 25 MG TABLET PEG SCH ×4 (01:18→17:02)
[2021-01-02] MEDS: INSULIN HUMULIN R 100 UNIT/ML 3ML SQ SCH ×4 (01:19→17:00)
[2021-01-02 05:43] LABS: ALBUMIN 2.4 g/dL (3.5-5.0); BILIRUBIN,TOTAL 0.2 mg/dL (0.2-1.0); CREATININE 0.4 mg/dL (0.5-1.5); MAGNESIUM 3.1 mg/dL (1.80-2.40); TOTAL PROTEIN, SERUM 6.1 g/dL (6.0-8.3)
[2021-01-02] MEDS: CLONAZEPAM 1MG TAB PEG SCH ×3 (06:11→21:08)
[2021-01-02] MEDS: ACETAMINOPHEN 500 MG TABLET PO SCH ×3 (06:11→21:09)
[2021-01-02] MEDS: SODIUM CHLORIDE 3% FOR INHALATION 4 ML/AMP VIAL.NEB IH PRN ×2 (06:53→11:44)
[2021-01-02] MEDS: BUSPIRONE HCL 5 MG TABLET PO SCH ×2 (08:17→21:10)
[2021-01-02] MEDS: SUCRALFATE 1 GM TABLET PEG SCH ×4 (08:17→21:08)
[2021-01-02] MEDS: APIXABAN 5 MG TABLET PO SCH ×2 (08:18→21:10)
[2021-01-02] MEDS: QUETIAPINE FUMARATE 25 MG TAB PO SCH ×2 (08:18→21:09)
[2021-01-02] MEDS: MULTIVITAMIN TABLET PO SCH (08:18)
[2021-01-02] MEDS: PREDNISONE 20 MG TABLET PEG SCH (08:18)
[2021-01-02] MEDS: MAGNESIUM OXIDE 400 MG TABLET PO SCH (08:18)
[2021-01-02] MEDS: THIAMINE HCL 100 MG/ML 2ML VIAL IVP SCH (08:19)
[2021-01-02] MEDS: ZINC SULFATE 220 CAPSULE PO SCH (08:19)
[2021-01-02] MEDS: LANSOPRAZOLE 15 MG SOLU TAB PEG SCH (08:19)
[2021-01-02] MEDS: FLUTICASONE PROPIONATE 50MCG/SPRAY 16 GM BOTTLE EN SCH (08:20)
[2021-01-02] MEDS: INSULIN GLARGINE 100 UNITS/ML 10 ML VIAL SQ SCH ×2 (08:21→21:11)
[2021-01-02 10:16] LABS: ABG BASE EXCESS 9.2 mmol/L (-2.0-3.0); ABG HCO3 39.8 mmol/L (21.0-28.0); ABG OXYGEN SATURATION 98.6 % (95.0-99.0); ABG PCO2 86 mmHg (35-48)
[2021-01-02] MEDS: FENTANYL CITRATE PF 50 MCG/1 ML 2ML VIAL IVP SCH (10:39)
[2021-01-03] VITALS (20 sets, daily range): BP systolic 109–132; BP diastolic 63–84
[2021-01-03] MEDS: HYDROXYZINE 25 MG TABLET PEG SCH ×5 (00:50→23:57)
[2021-01-03] MEDS: TRAMADOL HCL 50 MG TABLET PEG PRN ×3 (00:51→18:09)
[2021-01-03] MEDS: INSULIN HUMULIN R 100 UNIT/ML 3ML SQ SCH ×5 (00:52→23:57)
[2021-01-03 06:05] LABS: CREATININE 0.3 mg/dL (0.5-1.5); CRP QUANTITATIVE 22.3 mg/L (0.00-9.0); MAGNESIUM 2.1 mg/dL (1.80-2.40); POTASSIUM 4.4 mmol/L (3.5-5.1)
[2021-01-03] MEDS: CLONAZEPAM 1MG TAB PEG SCH ×3 (06:22→22:06)
[2021-01-03] MEDS: ACETAMINOPHEN 500 MG TABLET PO SCH ×3 (06:23→22:05)
[2021-01-03] MEDS: IPRATROPIUM/ALBUTEROL SULFATE 3 ML SOLUTION IH SCH ×3 (06:40→18:41)
[2021-01-03] MEDS: SODIUM CHLORIDE 3% FOR INHALATION 4 ML/AMP VIAL.NEB IH PRN ×2 (06:40→11:19)
[2021-01-03] MEDS: SUCRALFATE 1 GM TABLET PEG SCH ×4 (07:45→20:12)
[2021-01-03] MEDS: INSULIN GLARGINE 100 UNITS/ML 10 ML VIAL SQ SCH ×2 (07:47→20:15)
[2021-01-03] MEDS: FLUTICASONE PROPIONATE 50MCG/SPRAY 16 GM BOTTLE EN SCH (08:26)
[2021-01-03] MEDS: THIAMINE HCL 100 MG/ML 2ML VIAL IVP SCH (08:44)
[2021-01-03] MEDS: MULTIVITAMIN TABLET PO SCH (08:44)
[2021-01-03] MEDS: QUETIAPINE FUMARATE 25 MG TAB PO SCH ×2 (08:45→20:13)
[2021-01-03] MEDS: ZINC SULFATE 220 CAPSULE PO SCH (08:45)
[2021-01-03] MEDS: LANSOPRAZOLE 15 MG SOLU TAB PEG SCH (08:45)
[2021-01-03] MEDS: BUSPIRONE HCL 5 MG TABLET PO SCH ×2 (08:45→20:12)
[2021-01-03] MEDS: MAGNESIUM OXIDE 400 MG TABLET PO SCH (08:46)
[2021-01-03] MEDS: APIXABAN 5 MG TABLET PO SCH ×2 (08:46→20:12)
[2021-01-03] MEDS: PREDNISONE 20 MG TABLET PEG SCH (08:47)
[2021-01-03] MEDS: ACETAZOLAMIDE SODIUM 500 MG VIAL IV SCH (08:47)
[2021-01-04] VITALS (14 sets, daily range): BP systolic 98–140; BP diastolic 52–87
[2021-01-04] MEDS: IPRATROPIUM/ALBUTEROL SULFATE 3 ML SOLUTION IH SCH ×5 (00:30→23:28)
[2021-01-04] MEDS: SODIUM CHLORIDE 3% FOR INHALATION 4 ML/AMP VIAL.NEB IH PRN (00:30)
[2021-01-04] MEDS: TRAMADOL HCL 50 MG TABLET PEG PRN (02:02)
[2021-01-04 03:40] LABS: BASOPHILS % (AUTO) 0.4 % (0.0-5.0); EOSINOPHILS % (AUTO) 1.9 % (0.0-8.0); HEMATOCRIT 30.8 % (42-54); LYMPHOCYTES % (AUTO) 14.6 % (21.0-51.0); MEAN CORPUSCULAR HEMOGLOBIN 29.1 pg (27.0-33.0); MEAN CORPUSCULAR HGB CONC 29.5 g/dL (32.0-36.0); MEAN CORPUSCULAR VOLUME 98.4 fL (79-99); MONOCYTES % (AUTO) 9.7 % (3.0-13.0); PLATELET COUNT (AUTO) 477 K/uL (130-400); RED BLOOD CELL COUNT(AUTO) 3.13 MIL/uL (4.50-6.20); RED CELL DISTRIBUTION WIDTH 15.9 % (11.0-15.5); WHITE BLOOD COUNT (AUTO) 9.3 K/uL (4.8-10.8)
[2021-01-04 03:53] LABS: ALBUMIN 2.4 g/dL (3.5-5.0); BILIRUBIN,TOTAL 0.2 mg/dL (0.2-1.0); CREATININE 0.3 mg/dL (0.5-1.5); MAGNESIUM 1.3 mg/dL (1.80-2.40); PHOSPHORUS 2.9 mg/dL (2.5-4.9); POTASSIUM 4.1 mmol/L (3.5-5.1)
[2021-01-04] MEDS: INSULIN HUMULIN R 100 UNIT/ML 3ML SQ SCH ×3 (05:31→17:38)
[2021-01-04] MEDS: INSULIN GLARGINE 100 UNITS/ML 10 ML VIAL SQ SCH ×2 (05:32→20:27)
[2021-01-04] MEDS: CLONAZEPAM 1MG TAB PEG SCH ×3 (05:53→21:53)
[2021-01-04] MEDS: ACETAMINOPHEN 500 MG TABLET PO SCH ×3 (05:53→21:53)
[2021-01-04] MEDS: HYDROXYZINE 25 MG TABLET PEG SCH ×4 (05:53→23:23)
[2021-01-04] MEDS: SUCRALFATE 1 GM TABLET PEG SCH ×4 (06:02→20:23)
[2021-01-04 07:28] LABS: ABG BASE EXCESS 8.9 mmol/L (-2.0-3.0); ABG HCO3 38.2 mmol/L (21.0-28.0); ABG OXYGEN SATURATION 97.9 % (95.0-99.0); ABG PCO2 75 mmHg (35-48)
[2021-01-04] MEDS: ACETAZOLAMIDE SODIUM 500 MG VIAL IV SCH (08:19)
[2021-01-04] MEDS: BUSPIRONE HCL 5 MG TABLET PO SCH ×2 (08:20→20:23)
[2021-01-04] MEDS: MULTIVITAMIN TABLET PO SCH (08:20)
[2021-01-04] MEDS: MAGNESIUM OXIDE 400 MG TABLET PO SCH (08:20)
[2021-01-04] MEDS: ZINC SULFATE 220 CAPSULE PO SCH (08:20)
[2021-01-04] MEDS: LANSOPRAZOLE 15 MG SOLU TAB PEG SCH (08:20)
[2021-01-04] MEDS: PREDNISONE 20 MG TABLET PEG SCH (08:20)
[2021-01-04] MEDS: THIAMINE HCL 100 MG/ML 2ML VIAL IVP SCH (08:20)
[2021-01-04] MEDS: APIXABAN 5 MG TABLET PO SCH ×2 (08:21→20:24)
[2021-01-04] MEDS: QUETIAPINE FUMARATE 25 MG TAB PO SCH ×2 (08:21→20:24)
[2021-01-04] MEDS: FLUTICASONE PROPIONATE 50MCG/SPRAY 16 GM BOTTLE EN SCH (08:22)
[2021-01-04] MEDS ORDERED: TRAMADOL HCL 50 MG TABLET PEG SCH (10:00)
[2021-01-04] MEDS: BALSAM PERU/CASTOR OIL 60 GM TUBE TP SCH (20:25)
[2021-01-05] VITALS (15 sets, daily range): BP systolic 113–143; BP diastolic 69–92
[2021-01-05] MEDS: INSULIN HUMULIN R 100 UNIT/ML 3ML SQ SCH ×4 (00:01→18:00)
[2021-01-05] MEDS: TRAMADOL HCL 50 MG TABLET PEG PRN ×4 (00:06→17:58)
[2021-01-05 04:27] LABS: BASOPHILS % (AUTO) 0.3 % (0.0-5.0); EOSINOPHILS % (AUTO) 1.5 % (0.0-8.0); HEMATOCRIT 31.9 % (42-54); LYMPHOCYTES % (AUTO) 16.5 % (21.0-51.0); MEAN CORPUSCULAR HEMOGLOBIN 29.4 pg (27.0-33.0); MEAN CORPUSCULAR HGB CONC 30.7 g/dL (32.0-36.0); MEAN CORPUSCULAR VOLUME 95.8 fL (79-99); MONOCYTES % (AUTO) 9.1 % (3.0-13.0); NEUTROPHILS % (AUTO) 71.4 % (40.0-77.0); PLATELET COUNT (AUTO) 511 K/uL (130-400); RED BLOOD CELL COUNT(AUTO) 3.33 MIL/uL (4.50-6.20); RED CELL DISTRIBUTION WIDTH 15.8 % (11.0-15.5); WHITE BLOOD COUNT (AUTO) 12.1 K/uL (4.8-10.8)
[2021-01-05 04:42] LABS: CREATININE 0.4 mg/dL (0.5-1.5); MAGNESIUM 1.9 mg/dL (1.80-2.40); PHOSPHORUS 2.2 mg/dL (2.5-4.9); POTASSIUM 3.9 mmol/L (3.5-5.1)
[2021-01-05] MEDS: IPRATROPIUM/ALBUTEROL SULFATE 3 ML SOLUTION IH SCH ×3 (05:12→23:34)
[2021-01-05] MEDS: INSULIN GLARGINE 100 UNITS/ML 10 ML VIAL SQ SCH ×2 (06:08→20:23)
[2021-01-05] MEDS: HYDROXYZINE 25 MG TABLET PEG SCH ×3 (06:24→17:58)
[2021-01-05] MEDS: ACETAMINOPHEN 500 MG TABLET PO SCH ×3 (06:25→21:49)
[2021-01-05] MEDS: CLONAZEPAM 1MG TAB PEG SCH ×3 (06:25→21:49)
[2021-01-05] MEDS: SUCRALFATE 1 GM TABLET PEG SCH ×4 (06:25→20:23)
[2021-01-05] MEDS: BALSAM PERU/CASTOR OIL 60 GM TUBE TP SCH ×2 (08:42→20:26)
[2021-01-05] MEDS: ZINC SULFATE 220 CAPSULE PO SCH (09:04)
[2021-01-05] MEDS: ACETAZOLAMIDE SODIUM 500 MG VIAL IV SCH (09:04)
[2021-01-05] MEDS: THIAMINE HCL 100 MG/ML 2ML VIAL IVP SCH (09:04)
[2021-01-05] MEDS: BUSPIRONE HCL 5 MG TABLET PO SCH ×2 (09:04→20:24)
[2021-01-05] MEDS: MAGNESIUM OXIDE 400 MG TABLET PO SCH (09:04)
[2021-01-05] MEDS: MULTIVITAMIN TABLET PO SCH (09:04)
[2021-01-05] MEDS: QUETIAPINE FUMARATE 25 MG TAB PO SCH ×2 (09:04→20:26)
[2021-01-05] MEDS: LANSOPRAZOLE 15 MG SOLU TAB PEG SCH (09:05)
[2021-01-05] MEDS: FLUTICASONE PROPIONATE 50MCG/SPRAY 16 GM BOTTLE EN SCH (09:05)
[2021-01-05] MEDS: PREDNISONE 20 MG TABLET PEG SCH (09:05)
[2021-01-05] MEDS: APIXABAN 5 MG TABLET PO SCH ×2 (09:05→20:24)
[2021-01-06] VITALS (15 sets, daily range): BP systolic 118–144; BP diastolic 70–92
[2021-01-06] MEDS: TRAMADOL HCL 50 MG TABLET PEG PRN ×2 (00:07→06:28)
[2021-01-06] MEDS: HYDROXYZINE 25 MG TABLET PEG SCH ×2 (00:07→06:27)
[2021-01-06] MEDS: INSULIN HUMULIN R 100 UNIT/ML 3ML SQ SCH ×4 (00:09→18:27)
[2021-01-06 04:10] LABS: BASOPHILS % (AUTO) 0.4 % (0.0-5.0); EOSINOPHILS % (AUTO) 1.2 % (0.0-8.0); HEMATOCRIT 33.6 % (42-54); MEAN CORPUSCULAR HEMOGLOBIN 28.6 pg (27.0-33.0); MEAN CORPUSCULAR HGB CONC 30.4 g/dL (32.0-36.0); MEAN CORPUSCULAR VOLUME 94.1 fL (79-99); MONOCYTES % (AUTO) 8.9 % (3.0-13.0); NEUTROPHILS % (AUTO) 71.5 % (40.0-77.0); NUCLEATED RED BLOOD CELLS 0.2 % (0.0-0.19); PLATELET COUNT (AUTO) 504 K/uL (130-400); RED BLOOD CELL COUNT(AUTO) 3.57 MIL/uL (4.50-6.20); RED CELL DISTRIBUTION WIDTH 15.6 % (11.0-15.5); WHITE BLOOD COUNT (AUTO) 12.1 K/uL (4.8-10.8)
[2021-01-06 04:33] LABS: CREATININE 0.4 mg/dL (0.5-1.5); POTASSIUM 3.6 mmol/L (3.5-5.1)
[2021-01-06] MEDS: CLONAZEPAM 1MG TAB PEG SCH ×3 (06:27→21:49)
[2021-01-06] MEDS: ACETAMINOPHEN 500 MG TABLET PO SCH ×3 (06:27→21:52)
[2021-01-06] MEDS: SUCRALFATE 1 GM TABLET PEG SCH ×4 (06:29→20:08)
[2021-01-06] MEDS: INSULIN GLARGINE 100 UNITS/ML 10 ML VIAL SQ SCH ×2 (06:30→20:10)
[2021-01-06] MEDS: IPRATROPIUM/ALBUTEROL SULFATE 3 ML SOLUTION IH SCH ×3 (06:43→18:30)
[2021-01-06] MEDS: SODIUM CHLORIDE 3% FOR INHALATION 4 ML/AMP VIAL.NEB IH PRN ×3 (06:43→18:31)
[2021-01-06] MEDS: QUETIAPINE FUMARATE 25 MG TAB PO SCH ×2 (09:00→20:08)
[2021-01-06] MEDS: FLUTICASONE PROPIONATE 50MCG/SPRAY 16 GM BOTTLE EN SCH (09:09)
[2021-01-06] MEDS: BALSAM PERU/CASTOR OIL 60 GM TUBE TP SCH ×2 (09:09→20:08)
[2021-01-06] MEDS: THIAMINE HCL 100 MG/ML 2ML VIAL IVP SCH (09:28)
[2021-01-06] MEDS: APIXABAN 5 MG TABLET PO SCH ×2 (09:30→20:08)
[2021-01-06] MEDS: LANSOPRAZOLE 15 MG SOLU TAB PEG SCH (09:30)
[2021-01-06] MEDS: PREDNISONE 20 MG TABLET PEG SCH (09:30)
[2021-01-06] MEDS: MAGNESIUM OXIDE 400 MG TABLET PO SCH (09:30)
[2021-01-06] MEDS: MULTIVITAMIN TABLET PO SCH (09:30)
[2021-01-06] MEDS: ZINC SULFATE 220 CAPSULE PO SCH (09:35)
[2021-01-06] MEDS: BUSPIRONE HCL 5 MG TABLET PO SCH ×2 (10:28→20:08)
[2021-01-07] VITALS (15 sets, daily range): BP systolic 111–127; BP diastolic 61–86
[2021-01-07] MEDS: HYDROXYZINE 25 MG TABLET PEG PRN ×3 (00:10→20:29)
[2021-01-07] MEDS: TRAMADOL HCL 50 MG TABLET PEG PRN ×2 (00:10→11:51)
[2021-01-07] MEDS: IPRATROPIUM/ALBUTEROL SULFATE 3 ML SOLUTION IH SCH ×5 (00:11→23:49)
[2021-01-07 03:50] LABS: BASOPHILS % (AUTO) 0.2 % (0.0-5.0); EOSINOPHILS % (AUTO) 0.4 % (0.0-8.0); HEMATOCRIT 31.5 % (42-54); LYMPHOCYTES % (AUTO) 7.5 % (21.0-51.0); MEAN CORPUSCULAR HEMOGLOBIN 28.3 pg (27.0-33.0); MEAN CORPUSCULAR HGB CONC 30.5 g/dL (32.0-36.0); MEAN CORPUSCULAR VOLUME 92.9 fL (79-99); PLATELET COUNT (AUTO) 484 K/uL (130-400); RED BLOOD CELL COUNT(AUTO) 3.39 MIL/uL (4.50-6.20); RED CELL DISTRIBUTION WIDTH 15.9 % (11.0-15.5); WHITE BLOOD COUNT (AUTO) 21.4 K/uL (4.8-10.8)
[2021-01-07 03:57] LABS: CREATININE 0.4 mg/dL (0.5-1.5); MAGNESIUM 1.8 mg/dL (1.80-2.40); POTASSIUM 3.7 mmol/L (3.5-5.1)
[2021-01-07] MEDS: CLONAZEPAM 1MG TAB PEG SCH ×3 (05:23→22:33)
[2021-01-07] MEDS: ACETAMINOPHEN 500 MG TABLET PO SCH ×3 (05:23→22:33)
[2021-01-07] MEDS: INSULIN HUMULIN R 100 UNIT/ML 3ML SQ SCH ×5 (05:27→23:16)
[2021-01-07] MEDS: SUCRALFATE 1 GM TABLET PEG SCH ×4 (06:17→20:25)
[2021-01-07] MEDS: INSULIN GLARGINE 100 UNITS/ML 10 ML VIAL SQ SCH ×2 (06:19→20:29)
[2021-01-07 07:49] LABS: ABG BASE EXCESS 8.7 mmol/L (-2.0-3.0); ABG HCO3 32.6 mmol/L (21.0-28.0); ABG OXYGEN SATURATION 88.2 % (95.0-99.0); ABG PCO2 42 mmHg (35-48)
[2021-01-07] MEDS: BALSAM PERU/CASTOR OIL 60 GM TUBE TP SCH ×2 (08:11→20:25)
[2021-01-07] MEDS: FLUTICASONE PROPIONATE 50MCG/SPRAY 16 GM BOTTLE EN SCH (08:12)
[2021-01-07] MEDS: QUETIAPINE FUMARATE 25 MG TAB PO SCH ×2 (08:23→20:25)
[2021-01-07] MEDS: MAGNESIUM OXIDE 400 MG TABLET PO SCH (08:23)
[2021-01-07] MEDS: BUSPIRONE HCL 5 MG TABLET PO SCH ×2 (08:23→20:25)
[2021-01-07] MEDS: LANSOPRAZOLE 15 MG SOLU TAB PEG SCH (08:45)
[2021-01-07] MEDS: PREDNISONE 20 MG TABLET PEG SCH (08:45)
[2021-01-07] MEDS: APIXABAN 5 MG TABLET PO SCH ×2 (08:45→20:25)
[2021-01-07] MEDS: THIAMINE HCL 100 MG/ML 2ML VIAL IVP SCH (08:45)
[2021-01-07] MEDS: ZINC SULFATE 220 CAPSULE PO SCH (08:45)
[2021-01-07] MEDS: MULTIVITAMIN TABLET PO SCH (08:46)
[2021-01-07] MEDS: ACETAZOLAMIDE SODIUM 500 MG VIAL IV SCH (11:51)
[2021-01-07] MEDS: SODIUM CHLORIDE 3% FOR INHALATION 4 ML/AMP VIAL.NEB IH PRN ×2 (18:26→23:49)
[2021-01-08] VITALS (20 sets, daily range): BP systolic 102–135; BP diastolic 55–85
[2021-01-08 03:41] LABS: BASOPHILS % (AUTO) 0.2 % (0.0-5.0); EOSINOPHILS % (AUTO) 0.5 % (0.0-8.0); HEMATOCRIT 32.2 % (42-54); LYMPHOCYTES % (AUTO) 9.3 % (21.0-51.0); MEAN CORPUSCULAR HEMOGLOBIN 28.7 pg (27.0-33.0); MEAN CORPUSCULAR HGB CONC 31.1 g/dL (32.0-36.0); MEAN CORPUSCULAR VOLUME 92.5 fL (79-99); MONOCYTES % (AUTO) 7.3 % (3.0-13.0); NEUTROPHILS % (AUTO) 81.8 % (40.0-77.0); NUCLEATED RED BLOOD CELLS 0.1 % (0.0-0.19); PLATELET COUNT (AUTO) 486 K/uL (130-400); RED BLOOD CELL COUNT(AUTO) 3.48 MIL/uL (4.50-6.20); RED CELL DISTRIBUTION WIDTH 16.1 % (11.0-15.5); WHITE BLOOD COUNT (AUTO) 18.7 K/uL (4.8-10.8)
[2021-01-08 03:53] LABS: CREATININE 0.3 mg/dL (0.5-1.5); POTASSIUM 3.9 mmol/L (3.5-5.1)
[2021-01-08] MEDS: HYDROXYZINE 25 MG TABLET PEG PRN ×2 (06:08→20:19)
[2021-01-08] MEDS: ACETAMINOPHEN 500 MG TABLET PO SCH ×3 (06:08→22:53)
[2021-01-08] MEDS: SUCRALFATE 1 GM TABLET PEG SCH ×4 (06:09→20:19)
[2021-01-08] MEDS: CLONAZEPAM 1MG TAB PEG SCH ×3 (06:09→22:15)
[2021-01-08] MEDS: INSULIN HUMULIN R 100 UNIT/ML 3ML SQ SCH ×3 (06:23→18:32)
[2021-01-08] MEDS: INSULIN GLARGINE 100 UNITS/ML 10 ML VIAL SQ SCH ×2 (06:24→21:42)
[2021-01-08] MEDS: IPRATROPIUM/ALBUTEROL SULFATE 3 ML SOLUTION IH SCH ×3 (06:54→18:54)
[2021-01-08] MEDS: MAGNESIUM OXIDE 400 MG TABLET PO SCH (09:12)
[2021-01-08] MEDS: LANSOPRAZOLE 15 MG SOLU TAB PEG SCH (09:13)
[2021-01-08] MEDS: QUETIAPINE FUMARATE 25 MG TAB PO SCH ×2 (09:13→20:18)
[2021-01-08] MEDS: PREDNISONE 20 MG TABLET PEG SCH (09:13)
[2021-01-08] MEDS: BUSPIRONE HCL 5 MG TABLET PO SCH ×2 (09:13→20:18)
[2021-01-08] MEDS: MULTIVITAMIN TABLET PO SCH (09:14)
[2021-01-08] MEDS: ZINC SULFATE 220 CAPSULE PO SCH (09:14)
[2021-01-08] MEDS: THIAMINE HCL 100 MG/ML 2ML VIAL IVP SCH (09:14)
[2021-01-08] MEDS: APIXABAN 5 MG TABLET PO SCH ×2 (09:14→20:19)
[2021-01-08] MEDS: ACETAZOLAMIDE SODIUM 500 MG VIAL IV SCH (09:15)
[2021-01-08] MEDS: BALSAM PERU/CASTOR OIL 60 GM TUBE TP SCH ×2 (09:15→21:36)
[2021-01-08] MEDS: FLUTICASONE PROPIONATE 50MCG/SPRAY 16 GM BOTTLE EN SCH (09:16)
[2021-01-08] MEDS ORDERED: APAP/CODEINE 120/12MG 5ML PO PRN (09:45)
[2021-01-08] MEDS ORDERED: TRAMADOL HCL 50 MG TABLET PO PRN (12:30)
[2021-01-08] MEDS ORDERED: TRAMADOL HCL 50 MG TABLET ONE (12:34)
[2021-01-08] MEDS ORDERED: HONEY 1 APPL/ML TUBE TP SCH (18:00)
[2021-01-08] MEDS: SODIUM CHLORIDE 3% FOR INHALATION 4 ML/AMP VIAL.NEB IH PRN (18:54)
[2021-01-09] VITALS: BP 119/76
[2021-01-09] MEDS: INSULIN HUMULIN R 100 UNIT/ML 3ML SQ SCH
[2021-01-09] MEDS: IPRATROPIUM/ALBUTEROL SULFATE 3 ML SOLUTION IH SCH (00:23)
[2021-01-09 02:00] VITALS: BP 107/72
[2021-01-09] MEDS ORDERED: CLONAZEPAM 1MG TAB PEG SCH (08:00)
== END 2021-01-09 03:00 | disposition short-term general hospital (02) | DRG 4 ==
LOC: EDH 18:04 → EDHIP 18:05 → 2AH 23:18 → 2BH 11-04 11:32 → 2DH 12-14 16:35
PROVIDERS: ADMIT Internal Medicine; ATTEND Internal Medicine
PROC: XW13325 Transfusion of Convalescent Plasma (Nonautologous) into Peripheral Vein, Percutaneous Approach, New Technology Group 5 (ICD-10-PCS; 2020-10-15)
PROC: XW033E5 Introduction of Remdesivir Anti-infective into Peripheral Vein, Percutaneous Approach, New Technology Group 5 (ICD-10-PCS; 2020-10-15)
PROC: 5A1955Z Respiratory Ventilation, Greater than 96 Consecutive Hours (ICD-10-PCS; 2020-11-04)
PROC: 0BH17EZ Insertion of Endotracheal Airway into Trachea, Via Natural or Artificial Opening (ICD-10-PCS; 2020-11-04)
PROC: 02HV33Z Insertion of Infusion Device into Superior Vena Cava, Percutaneous Approach (ICD-10-PCS; 2020-11-15)
PROC: B548ZZA Ultrasonography of Superior Vena Cava, Guidance (ICD-10-PCS; 2020-11-15)
PROC: 0B110F4 Bypass Trachea to Cutaneous with Tracheostomy Device, Open Approach (ICD-10-PCS; principal; 2020-11-24 17:42)
PROC: 0DH63UZ Insertion of Feeding Device into Stomach, Percutaneous Approach (ICD-10-PCS; 2020-11-29)
PROC: 0BJ08ZZ Inspection of Tracheobronchial Tree, Via Natural or Artificial Opening Endoscopic (ICD-10-PCS; 2020-12-03)
PROC: 0B9F8ZX Drainage of Right Lower Lung Lobe, Via Natural or Artificial Opening Endoscopic, Diagnostic (ICD-10-PCS; 2020-12-06)
PROC: 5A09357 Assistance with Respiratory Ventilation, Less than 24 Consecutive Hours, Continuous Positive Airway Pressure (ICD-10-PCS; 2020-12-23)
PROC: 5A09357 Assistance with Respiratory Ventilation, Less than 24 Consecutive Hours, Continuous Positive Airway Pressure (ICD-10-PCS; 2020-12-25)
PROC: 5A09357 Assistance with Respiratory Ventilation, Less than 24 Consecutive Hours, Continuous Positive Airway Pressure (ICD-10-PCS; 2020-12-26)
DX: A41.9 Sepsis, unspecified organism (principal); U07.1 COVID-19; R53.2 Functional quadriplegia; J12.82 Pneumonia due to coronavirus disease 2019; N17.0 Acute kidney failure with tubular necrosis; R57.0 Cardiogenic shock; R65.21 Severe sepsis with septic shock; J80 Acute respiratory distress syndrome; E87.2 Acidosis; B37.0 Candidal stomatitis; J95.851 Ventilator associated pneumonia; E87.0 Hyperosmolality and hypernatremia; E87.4 Mixed disorder of acid-base balance; G62.81 Critical illness polyneuropathy; G72.81 Critical illness myopathy; I13.0 Hypertensive heart and chronic kidney disease with heart failure and stage 1 through stage 4 chronic kidney disease, or unspecified chronic kidney disease; I24.8 Other forms of acute ischemic heart disease; I42.9 Cardiomyopathy, unspecified; J95.02 Infection of tracheostomy stoma; N30.00 Acute cystitis without hematuria; Z99.11 Dependence on respirator [ventilator] status; L89.150 Pressure ulcer of sacral region, unstageable; E11.65 Type 2 diabetes mellitus with hyperglycemia; T38.0X5A Adverse effect of glucocorticoids and synthetic analogues, initial encounter; D72.810 Lymphocytopenia; J98.2 Interstitial emphysema; B96.1 Klebsiella pneumoniae [K. pneumoniae] as the cause of diseases classified elsewhere; R13.12 Dysphagia, oropharyngeal phase; B96.89 Other specified bacterial agents as the cause of diseases classified elsewhere; D64.9 Anemia, unspecified; E11.22 Type 2 diabetes mellitus with diabetic chronic kidney disease; E66.01 Morbid (severe) obesity due to excess calories; E83.39 Other disorders of phosphorus metabolism; E83.42 Hypomagnesemia; E86.1 Hypovolemia; E87.6 Hypokalemia; E87.70 Fluid overload, unspecified; F41.9 Anxiety disorder, unspecified; G83.9 Paralytic syndrome, unspecified; I50.810 Right heart failure, unspecified; Z74.01 Bed confinement status; I80.8 Phlebitis and thrombophlebitis of other sites; K12.30 Oral mucositis (ulcerative), unspecified; K21.9 Gastro-esophageal reflux disease without esophagitis; K29.70 Gastritis, unspecified, without bleeding; B96.5 Pseudomonas (aeruginosa) (mallei) (pseudomallei) as the cause of diseases classified elsewhere; K75.9 Inflammatory liver disease, unspecified; L89.302 Pressure ulcer of unspecified buttock, stage 2; M19.90 Unspecified osteoarthritis, unspecified site; N18.9 Chronic kidney disease, unspecified; N34.2 Other urethritis; R63.3 Feeding difficulties; T50.2X5A Adverse effect of carbonic-anhydrase inhibitors, benzothiadiazides and other diuretics, initial encounter; Y92.89 Other specified places as the place of occurrence of the external cause; Z68.34 Body mass index [BMI] 34.0-34.9, adult; Z79.4 Long term (current) use of insulin; Z79.899 Other long term (current) drug therapy; Z83.3 Family history of diabetes mellitus
CPT/HCPCS: 31500; 36415; 36430; 36569; 36600; 43246; 71045; 71250; 74018; 76770; 80048; 80051; 80053; 80076; 80202; 81001; 82270; 82435; 82550; 82570; 82728; 82803; 82947; 82948; 83036; 83540; 83605; 83615; 83735; 83874; 83880; 83935; 84100; 84132; 84145; 84295; 84443; 84478; 84484; 84540; 84550; 85018; 85025; 85027; 85378; 85610; 85651; 85730; 86140; 86850; 86900; 86901; 86927; 87040; 87070; 87071; 87076; 87077; 87088; 87186; 87205; 87324; 87426; 87507; 87804; 87880; 92507; 92522; 92950; 93005; 93306; 93308; 93356; 93970; 93971; 94002; 94003; 94640; 94660; 94664; 94668; 97039; A4344; C1751; C1894; C9113; G0378; J0696; J1100; J1120; J1170; J1265; J1650; J1815; J1940; J2020; J2060; J2185; J2248; J2250; J2270; J2370; J2543; J2704; J2765; J2920; J2930; J3010; J3370; J3411; J3475; J3480; J3490; J7030; J7040; J7050; J7070; J7120; U0003